=== PATIENT | male | born 1955 | race Caucasian/White ===

== ENCOUNTER 2024-01-02 03:31 | Inpatient (IN) | payer MEDICARE, OTHER, SELFPAY ==
[2024-01-02] VITALS (16 sets, daily range): BP systolic 89–186; BP diastolic 59–113; BMI 49.3; BMI 48.2; BMI 48.1
[2024-01-02] MEDS: LASIX 100 MG IV (01:13)
[2024-01-02] MEDS: ZOFRAN 4 MG IV (01:13)
[2024-01-02] MEDS: DECADRON 20 MG IV (01:13)
[2024-01-02] MEDS: DUONEB 3 ML INH (01:13)
[2024-01-02 01:16] LABS: % Basophils 0.3 % (0-2); % Eosinophils 1.2 % (0-6); % Immature Granulocytes 0.3 % (0-0.5); % Lymphocytes 34.5 % (20.5-51.1); % Monocytes 5.9 % (1.7-9.3); % Neutrophils 57.8 % (42.2-75.2); Absolute Eosinophils 0.1 10^3/uL (0-0.7); Absolute Lymphocytes 3.1 10^3/uL (1.2-3.4); Absolute Monocytes 0.5 10^3/uL (0.1-0.6); Absolute Neutrophils 5.1 10^3/uL (1.4-6.5); Hematocrit 51.4 % (39.0-52.0); Mean Corp Hgb Conc. 33.1 g/dL (33.0-37.0); Mean Corpuscular Hgb 30.2 pg (27.0-31.0); Mean Corpuscular Volume 91.5 fL (80.0-94.0); Mean Platelet Volume 11.1 fL (7.4-10.4); Nucleated Red Blood Cells % 0 % (-); Platelet Count 245 10^3/uL (130-400); Red Blood Cell Count 5.62 10^6/uL (4.70-6.10); Red Cell Dist. Width 14.9 % (11.5-14.5); White Blood Cell Count 8.9 10^3/uL (4.8-10.8)
--- NOTE | 2024-01-02 01:26 | ED.GENMED ---
History of Present Illness
General
Chief Complaint: Breathing Problem
Source: patient and records
Exam Limitations: clinical condition
Time Seen by Provider: 01/02/24 01:06
Nursing documentation reviewed up to this point in time: agreed with
Travel History
Have you had any contact with someone who has COVID-19?: No
Do you have any symptoms of coronavirus? Fever > 100 degrees, chills, cough, shortness of breath, sore throat, loss of taste or smell, muscle aches, or headache?: No
History of Present Illness
History of Present Illness:
Patient is a 68-year-old male who presents to the emergency department with acute onset of shortness of breath. Patient took Mounjaro for the first time tonight and approximately 20 minutes later began to feel short of breath and his lungs were
following up with fluid. Patient felt his throat swelling his eyes tearing and becoming nauseous. Patient denies chest pain. Patient denies abdominal pain vomiting or diarrhea. Patient denies history of atrial fibrillation. Patient has a
history of hypertension, hypercholesterolemia, diabetes as well as a TIA and had a PE. Patient has obstructive sleep apnea and is on CPAP. Patient also has history of factor V Leiden deficiency. Patient not taken the medication previously.
Past History
Past History
ED Past Medical History: CVA, HTN, Hypercholesterolemia, NIDDM and Other (Factor V Leiden deficiency, obstructive sleep apnea, PE)
ED Past Surgical History: Appendectomy
Social History
Tobacco: Former smoker
Alcohol: Occasional
Drug: None
Personal:
Living: alone
Employment: Disabled
Family History
Family History: Other (Diabetes, coronary disease, sister with a 'torn aorta'. Brother with diabetes)
Review of Systems
Review of Systems
All Other Systems: ROS reviewed and negative except as documented in HPI and ROS
Constitutional: Denies fever, fatigue or chills
EENT: Reports tearing, mouth swelling and runny nose
Respiratory: Reports trouble breathing; Denies cough
Cardiac: Reports no symptoms
ABD/GI: Reports nausea; Denies abdominal pain, vomiting, diarrhea or constipated
: Reports no symptoms
Musculoskeletal: Reports no symptoms
Skin: Reports no symptoms
Neurological: Reports no symptoms
Hematologic/Lymphatic: Reports no symptoms
Phy Exam
Physical Exam
Physical Exam:
Physical Exam
General: significant distress, alert and appropriate, morbidly obese, well hydrated
HENT: Normocephalic, supple with no lymphadenopathy, no thyromegaly
Eyes: Clear sclera, conjuctiva without injection
Heart: irregular rhythm and tachycardic rate. No S3, S4. No murmur. No NVD.
Lungs: significant respiratory distress, no stridor, lung sounds are diminished throughout with Rales and rhonchi but equal bilaterally
Abdomen: Soft, nontender, BS good
Neuro: Alert and oriented x 3, CN II - XII intact, no motor focality, no cerebellar dysfunction
Skin: no rash
Psychiatric: well kept. interactive and cooperative
Extremities: No tenderness. +1 pitting pretibial edema bilaterally.
Scores
Heart Failure Risk
Heart Failure Risk Score: Not Applicable
Course
Orders/Labs/Results
Orders:
Orders
01/02/24 01:07
ECG [Electrocardiogram (*1)] Urgent
Reason for Study: Shortness of Breath
01/02/24 01:08
EKG- Treatment ONCE
Dexamethasone Sod Phosphate [Decadron] 20 mg IV NOW STA
Furosemide [Lasix] 100 mg IV NOW STA
Ipratropium/Albuterol Sulfate [Duoneb] 3 ml .ROUTE .STK-MED ONE
Ipratropium/Albuterol Sulfate [Duoneb] 3 ml INH R NOW STA
Ondansetron Injectable [Zofran] 4 mg IV NOW STA
01/02/24 01:09
Complete Blood Count/With Diff Urgent
Comprehensive Metabolic Panel Urgent
Free T4 Urgent
NT-proBNP Urgent
TSH Reflex To Free T4 Urgent
Troponin I Urgent
01/02/24 01:25
CR Chest Portable - 1 View Urgent
Comment:
Reason For Exam: acute sob pulse ox 73%
Reason Study Needs to be Portable: Patient Unstable
01/02/24 01:31
Diphenhydramine [Benadryl] 25 mg IV NOW STA
Abnormal Lab Results
01/02/24
01:09
RDW 14.9 H %
(11.5-14.5)
MPV 11.1 H fL
(7.4-10.4)
Chloride 108 H mmol/L
(98-107)
Carbon Dioxide 19 L mmol/L
(22-30)
BUN 32 H mg/dl
(9-20)
Glucose 150 H mg/dl
(70-99)
TSH (Reflex) 5.37 H uIU/ml
(0.47-4.68)
01/02/24 01:09
01/02/24 01:09
Vital Signs
Initial and Last Documented VS:
Initial Vital Signs
Pulse Resp BP Pulse Ox
106 28 150/83 80
01/02/24 00:57 01/02/24 00:57 01/02/24 00:57 01/02/24 00:57
Last Documented Vital Signs
Pulse Resp BP Pulse Ox
98 23 89/60 95
01/02/24 02:00 01/02/24 02:00 01/02/24 02:00 01/02/24 02:10
*Radiology
Radiology exam reviewed: preliminary read by ED provider (mild congestion)
*Pulse Oximetry
Patient hypoxic: yes
Comment: initially 73%
*EKG
Interpreted by ED Provider?: Yes
EKG Intrepretation Date: 01/02/24
EKG Intrepretation Time: 01:41
Interpretation: abnormal
Comparison EKG: changes noted (Appears to be A-V dissociation but may be extreme first-degree heart block)
Heart Rate: 97
Rate: normal
Rhythm: sinus and PAC's
[place]: normal axis
Interval: normal QT interval and first degree heart block
QRS Pattern: right bundle branch block
Ischemia: non-specific ST changes
*Materials Scientist Interpretation
Rate: tachycardiac
Interpretation: abnormal
Heart Rate: 110
Rhythm: sinus and PAC's
*Critical Care Note
Total Time (30-74mins, 75-104mins- exclusive of procedures): 45 minutes
Update Note
Update Note:
Patient has improved. Review of the EKG shows either A-V dissociation or possibly a very prolonged first-degree heart block which is new. Patient's had first-degree heart block in the past but not to this extent. Patient has no history of atrial
fibrillation. The right bundle branch block is old. Chest x-ray shows just mild congestion. Believe the patient had an allergic reaction to the Mounjaro and was developing pulmonary edema. Patient does wear compression stockings and had his
BiPAP on at the time. Patient is resting more comfortably. Patient will be admitted.
ED Attending Note
-
Portions of this chart may have been created with voice recognition software.� Occasional wrong word or��sound alike� substitutions may have occurred due to the inherent limitations of voice recognition software.
Discharge Plan
Departure
Patient Disposition: Admit
Date of Disposition: 01/02/24
Time of Disposition: 01:57
Admit to: Telemetry
Admit to doctor: Hospitalist
Presentation/result/management discussed w/ accepting MD/DO: Hospitalist
Condition: Critical
Covid-19: Not Applicable
Discharge Problem:
Acute respiratory insufficiency, Allergic reaction, Hypoxia
Prescriptions:
No Action
furosemide 40 MG tablet
80 mg PO DAILY
atorvastatin 40 MG tablet
40 mg PO HS
aspirin 81 MG tablet,delayed release (DR/EC)
81 mg PO DAILY
labetalol 100 MG tablet
100 mg PO BID
polyethylene glycol 3350 17 GRAMS powder in packet
17 grams PO DAILY 0RF
zinc sulfate 220 MG capsule
220 mg PO DAILY 0RF
spironolactone 25 mg Tablet
25 mg PO DAILY
metformin 1,000 mg Tablet
1,000 mg PO BID
allopurinol 300 mg Tablet
300 mg PO DAILY
insulin aspart U-100 [Novolog FlexPen U-100 Insulin] 100 unit/mL (3 mL) Insulin Pen
SC TID
hydralazine-hydrochlorothiazid 25-25 mg Tablet
25 tab PO TID
omega 4-otg-ntp-fish oil [Fish Oil] 1,200 (144-216) mg Capsule
1,200 cap PO BID
Farxiga 5 mg Tablet
5 mg PO DAILY
Entresto
1 tab PO BID
Ozempic
DIRECTED
Patient Comments:
0.25 mg qweek for 4 weeks, the 0.50 mg qweek
insulin glargine [Lantus U-100 Insulin] 1,000 UNITS/10 ML solution
12 units SC DAILY
hydralazine 50 MG tablet
50 mg PO BID
Rx Instructions:
RESUME SLOWLY ONCE ORTHOSTASIS RESOLVED AND IF BP REMAINS HIGH
ascorbic acid (vitamin C) [Vitamin C] 500 MG tablet
1,000 mg PO DAILY
sennosides [senna] 1 TABLET tablet
1 tab PO PRN (Reason: constipation)
Interventions
Interventions:
*Risk Screen - Suicide Last Done: 01/02/24 00:57
*Neglect/Abuse Screening Last Done: 01/02/24 00:57
ED- Cardiac Assessment Last Done: 01/02/24 01:26
ED- Pulmonary Assessment Last Done: 01/02/24 02:10
Discharge Date and Time
Print Language: HUNGARIAN
[2024-01-02] MEDS: BENADRYL 25 MG IV (01:36)
[2024-01-02 01:37] LABS: ALT (SGPT) 24 U/L (0-50); AST (SGOT) 32 U/L (17-59); Albumin 4.6 g/dl (3.5-5.0); Alkaline Phosphatase 102 U/L (38-126); Blood Urea Nitrogen 32 mg/dl (9-20); Calcium 9.9 mg/dl (8.4-10.2); Carbon Dioxide 19 mmol/L (22-30); Chloride 108 mmol/L (98-107); Estimated Creatinine Clearance 111 ml/min; Glucose 150 mg/dl (70-99); Potassium 4.3 mmol/L (3.5-5.1); Sodium 141 mmol/L (135-145); Total Protein 7.5 g/dl (6.3-8.2); eGFR > 60.00
[2024-01-02 01:41] LABS: NT-proBNP 370 pg/ml; Troponin I < 0.012 ng/ml
[2024-01-02 02:01] LABS: TSH Reflex To Free T4 5.37 uIU/ml (0.47-4.68)
[2024-01-02] MEDS: ADRENALIN 0.299999999999999989 MG IM (02:21)
[2024-01-02] MEDS: PEPCID 20 MG IV ×2 (02:21→08:28)
--- NOTE | 2024-01-02 03:00 | HPS.HSE ---
Family Physician
-
Family Physician: RADHA Comer
Chief Complaint
-
SOB
History of Present Illness
Patient is a 68y M with PMH significant for morbid obesity and DM-II who presents to ED complaining of SOB, nausea and 'not feeling right'. Patient notes that he took his first dose of Mounjaro this evening around 11:45 PM. Only minutes later,
he began to feel sweaty, fatigued and mildly nauseated. He presented to the ED for further evaluation. He noted a raised, red area on the L anterior thigh at the site of the injection. In the ED, patient developed increasing SOB. He reported
swelling / fullness of the mouth and throat.
Patient denies any prior history of similar symptoms. No prior drug allergies.
Patient was treated in the ED with Lasix, Epinephrine, Pepcid with improvement in - but not resolution of - his symptoms.
Medical History
Past Medical History
Past Medical History: Reports Other
Additional Past Medical History:
Morbid Obesity
DM-II
Hypertension
Umbilical Hernia
History of DVT
Factor V Leiden
[place] on CPAP
Past Surgical History: Reports Other
Additional Past Surgical History:
T&A
Septoplasty
Appendectomy
Orchiectomy
Social History
Tobacco: Non-smoker
Alcohol: Occasional (Very rare.)
Family History
Family History: Not pertinent
Allergies / Home Medications
Allergies reflects when Allergies were last updated in [email or web address].
Home Medications with original date entered in [email or web address]
Allergy/Medication List:
Allergies
Allergy/AdvReac Type Severity Reaction Status Date / Time
tirzepatide [From Mounjaro] Allergy Severe Anaphylaxis Verified 01/02/24 02:14
Home Medications
aspirin 81 mg tablet,delayed release 81 mg PO DAILY Blood clot prevention/tx 04/07/18
atorvastatin 40 mg tablet 40 mg PO HS High cholesterol 04/07/18
furosemide 40 mg tablet 80 mg PO DAILY Fluid retention/Swelling 04/07/18
labetalol 100 mg tablet 100 mg PO BID Blood pressure 04/07/18
polyethylene glycol 3350 17 gram oral powder packet 17 grams PO DAILY 09/23/20
zinc sulfate 50 mg zinc (220 mg) capsule 220 mg (4.4 x 50 mg zinc (220 mg)) PO DAILY 09/23/20
Entresto 1 tab PO BID 08/09/23
Ozempic DIRECTED 08/09/23
allopurinol 300 mg tablet 300 mg PO DAILY 08/09/23
ascorbic acid (vitamin C) 500 mg tablet (Vitamin C) 1,000 mg PO DAILY 08/09/23
dapagliflozin propanediol 5 mg tablet (Farxiga) 5 mg PO DAILY 08/09/23
hydralazine 25 mg-hydrochlorothiazide 25 mg tablet 25 tab PO TID 08/09/23
hydralazine 50 mg tablet 50 mg PO BID 08/09/23
insulin aspart U-100 100 unit/mL (3 mL) subcutaneous pen (Novolog FlexPen U-100 Insulin aspart) unit SC TID 08/09/23
insulin glargine 100 unit/mL subcutaneous solution (Lantus U-100 Insulin) 12 units SC DAILY 08/09/23
metformin 1,000 mg tablet 1,000 mg PO BID 08/09/23
omega 6-[id number]-gkn-fish oil 1,200 mg (144 mg-216 mg) capsule (Fish Oil) 1,200 cap PO BID 08/09/23
sennosides 8.6 mg tablet (senna) 1 tab PO PRN constipation 08/09/23
spironolactone 25 mg tablet 25 mg PO DAILY 08/09/23
Review of Systems
-
History Source: Patient
A 12 point ROS was completed and negative except as noted: Yes
Constitutional: Reports Fatigue and Night Sweats; Denies Fever
EENT: Reports Other (Mouth / throat swelling); Denies Sore Throat
Respiratory: Reports Trouble Breathing
Cardiac: Denies Chest Pain
Abdomen/GI: Denies Abdominal Pain, Nausea, Vomiting or Diarrhea
Musculoskeletal: Denies Joint Pain or Edema
Neurological: Reports Dizzy and Headache
Psych: Denies Depression or Anxiety
Physical Exam
Vital Signs
Vital Signs
Pulse Resp BP Pulse Ox
94 14 112/63 95
01/02/24 02:30 01/02/24 02:30 01/02/24 02:30 01/02/24 02:30
Physical Exam
General: Other (Morbidly obese 68y M in mild respiratory distress at present.)
HEENT: Other (Thick neck. Evident oropharyngeal edema with thickness of tongue, fullness in the anterior neck / throat. No tenderness / fluctuance. Speaking, breathing without difficulty.)
Respiratory: Other (Diminished breath sounds throughout. Scattered expiratory wheezes.)
Cardiac: S1/S2 and Regular Rhythm; No Murmur
GI: Soft, Non Tender, Non Distended, Normal Bowel Sounds and Other (Obese. Large, non-tender umbilical hernia.)
Musculoskeletal: No Clubbing, No Cyanosis and Other (1+ pitting edema. Chronic venous stasis skin changes.)
Skin: Other (Maculopapular erythematous rashes b/l axillae with extension along flanks / abdomen.)
Neuro: AO x 3
Laboratory Results
-
01/02/24 01:09
01/02/24 01:09
Laboratory Results
Total Bilirubin 1.0 mg/dl (0.2-1.3) 01/02/24 01:09
AST 32 U/L (17-59) 01/02/24 01:09
ALT 24 U/L (0-50) 01/02/24 01:09
Alkaline Phosphatase 102 U/L (38-126) 01/02/24 01:09
Troponin I < 0.012 ng/ml 01/02/24 01:09
Impression/Plan
-
A/P: Patient is a 68y M with PMH significant for HTN, DM-II and obesity who presents to ED c/o nausea, diaphoresis and SOB.
Anaphylaxis
Acute Hypoxemic Respiratory Failure secondary to the above
- Admit for further evaluation and treatment.
- Symptoms seem clearly related to new administration of Mounjaro - now listed as allergy.
- Symptoms improving from initial arrival.
- Continue to monitor closely and monitor for worsening breathing, swallowing, etc.
- Continue steroids for now given ongoing wheezing and h/o post-COVID pulmonary compromise.
- Histamine blockers.
- Re-dose epinephrine if any recurrent / worsening symptoms.
- Follow for continued improvement / resolution of rash / etc.
DM-II
- Stable. Continue basal : bolus insulin.
- Hold metformin, Farxiga, etc.
- Follow glucose and cover with SSI as needed.
- Update A1C.
Benign Hypertension
- BP initially elevated but then decreased following Lasix administration in the ED.
- Now improving.
- Follow for changes in BP.
- Continue home meds, but with holding parameters to avoid hypotension.
Chronic HFpEF
- Patient with some evidence of pulmonary edema on admission - likely secondary to anaphylaxis.
- IV Lasix given in the ED.
- Continue usual PO dosing starting in AM.
- Follow I/Os, daily weights, etc.
History of DVT
Factor V Leiden
DVT Prophylaxis
- Remote history of DVT following prolonged hospitalization.
- Dx with Factor V Leiden. Was on OAC x 1 year and then discontinued.
- High-dose Lovenox for prophylaxis.
Umbilical Hernia
- Chronic / asymptomatic. No new changes.
Morbid Obesity due to excess calories
- Affects all aspects of care.
- Previously on Ozempic but changed to Mounjaro due to cost.
- Encourage healthy diet and increased activity with goal of weight loss.
Code Status: Full
[2024-01-02 04:15] LABS: Hematocrit 49.5 % (39.0-52.0); Hemoglobin 16.5 g/dL (13.0-18.0); Mean Corp Hgb Conc. 33.3 g/dL (33.0-37.0); Mean Corpuscular Hgb 30.3 pg (27.0-31.0); Mean Corpuscular Volume 90.8 fL (80.0-94.0); Platelet Count 208 10^3/uL (130-400); Red Blood Cell Count 5.45 10^6/uL (4.70-6.10); White Blood Cell Count 23.3 10^3/uL (4.8-10.8)
[2024-01-02 04:42] LABS: Blood Urea Nitrogen 38 mg/dl (9-20); Calcium 9.9 mg/dl (8.4-10.2); Carbon Dioxide 20 mmol/L (22-30); Chloride 105 mmol/L (98-107); Estimated Creatinine Clearance 101 ml/min; Glucose 200 mg/dl (70-99); Potassium 4.7 mmol/L (3.5-5.1); Sodium 141 mmol/L (135-145); eGFR > 60.00
[2024-01-02 07:03] LABS: Glucose - Point of Care 257 mg/dl (70-99)
--- NOTE | 2024-01-02 07:34 | PTCARENOTE ---
Rec'd pt as new admit from ED [facility] Hirsch. Pt AAOx3. EKG shows afib with RVR. HR 80s. Cardiac rhythm appears regular on monitor at times, but with non-discernable p-waves. Pt 94-96% on CPAP. Pt denies complaints of SOB, pain, dyspnea at this time. Able
to stand/pivot from stretcher into bed with assistx1. Call gleason placed within reach. Pt instructed to notify staff with any questions/concerns
[2024-01-02 08:12] LABS: Glucose - Point of Care 240 mg/dl (70-99)
[2024-01-02] MEDS: DECADRON 4 MG IV ×3 (08:25→23:39)
[2024-01-02] MEDS: TRANDATE 100 MG PO ×2 (08:27→21:06)
[2024-01-02] MEDS: ASPIR LOW (ENTERIC COATED) 81 MG PO (08:27)
[2024-01-02] MEDS: BENADRYL 25 MG PO ×3 (08:27→21:06)
[2024-01-02] MEDS: ZYRTEC 10 MG PO (08:27)
[2024-01-02] MEDS: NSS (PRESERVATIVE FREE) 8 ML IV (08:28)
[2024-01-02] MEDS: LOVENOX 40 MG SC ×2 (08:29→21:07)
[2024-01-02] MEDS: LASIX 80 MG PO (08:29)
[2024-01-02 08:44] LABS: Glycohemoglobin (HgbA1c) 7.6 % (4.0-5.6)
--- NOTE | 2024-01-02 08:44 | W.PN.HOSP.TC ---
Today's Communication/Plan
-
see bold
Assessment / Plan
Assessment / Plan
Patient is a 68y M with PMH significant for HTN, DM-II and obesity who presents to ED c/o nausea, diaphoresis and SOB.
Anaphylaxis
Acute Hypoxemic Respiratory Failure secondary to the above
- Symptoms seem clearly related to new administration of Mounjaro - now listed as allergy.
- Current requiring 5 L of oxygen, wean as tolerated
- Status post epinephrine, continue IV steroids, Benadryl, Pepcid continue to monitor closely
- Continue soft, small bite diet
DM-II
- Stable. Continue basal : bolus insulin.
- Hold metformin, Farxiga, SSI
Benign Hypertension
- BP initially elevated but then decreased following Lasix administration in the ED.
- Now improving. Continue home meds, but with holding parameters to avoid hypotension.
Chronic HFpEF
- Patient with some evidence of pulmonary edema on admission - likely secondary to anaphylaxis.
- IV Lasix given in the ED. Repeat chest x-ray today
History of DVT
Factor V Leiden
DVT Prophylaxis
- Remote history of DVT following prolonged hospitalization.
- Dx with Factor V Leiden. Was on OAC x 1 year and then discontinued.
- High-dose Lovenox for prophylaxis.
Umbilical Hernia
- Chronic / asymptomatic. No new changes.
Morbid Obesity due to excess calories
- Affects all aspects of care.
- Previously on Ozempic but changed to Mounjaro due to cost.
- Encourage healthy diet and increased activity with goal of weight loss.
DVT prophylaxis�subcu Lovenox
Full code
Physical Exam
General: Morbidly obese, no acute distress
HEENT: Normocephalic, Atraumatic, EOMI, MMM
Respiratory: Clear to Auscultation bilaterally
Cardiac: Normal S1/S2, Regular Rate and Rhythm
GI: Soft, Nontender, Nondistended, Normal Bowel Sounds
Protuberant belly, with large umbilical hernia
Extremities: No Clubbing, Cyanosis, or Edema
Neuro: Nonfocal/Grossly Intact
Psych: Calm, Cooperative
Anticipated Discharge: 24 - 48 hours
Subjective/Interval History
-
Date of Service: January 02, 2024
Patient tolerated his pills. He tolerated his breakfast, only with small amount of food once going into the wrong pipe. He reports the swelling of his lips has vastly improved, and is almost resolved. No fever, no vomiting.
Objective Data
-
Labs:
Laboratory Results
01/02/24 01/02/24
01:09 04:06
WBC 8.9 23.3 H
Hgb 17.0 16.5
Hct 51.4 49.5
Plt Count 245 208
Sodium 141 141
Potassium 4.3 4.7
Chloride 108 H 105
Carbon Dioxide 19 L 20 L
BUN 32 H 38 H
Creatinine 1.1 1.2
Glucose 150 H 200 H
Calcium 9.9 9.9
Total Bilirubin 1.0
AST 32
ALT 24
Alkaline Phosphatase 102
Vital Signs:
Vital Signs
Temp Pulse Resp BP Pulse Ox
97.8 F 95 18 186/113 94
01/02/24 07:39 01/02/24 06:00 01/02/24 06:00 01/02/24 08:29 01/02/24 06:00
I&O
01/01/24 01/02/24 01/03/24
06:59 06:59 06:59
Output Total 1250 / 1250
Balance -1250 / -1250
[2024-01-02] MEDS: ALDACTONE 25 MG PO (08:48)
[2024-01-02] MEDS: NOVOLOG FLEXPEN-MODERATE RESISTANCE 3 UNITS SC (08:48)
[2024-01-02] MEDS: NOVOLOG FLEXPEN 5 UNITS SC ×3 (08:50→17:41)
[2024-01-02 11:58] LABS: Glucose - Point of Care 270 mg/dl (70-99)
[2024-01-02] MEDS: NOVOLOG FLEXPEN-MODERATE RESISTANCE 5 UNITS SC ×2 (13:06→17:42)
[2024-01-02 16:09] LABS: Glucose - Point of Care 253 mg/dl (70-99)
--- NOTE | 2024-01-02 16:57 | CM ---
Patient with Hx obesity with Dx Anaphylaxis. O2 5L. CPAP. Receiving IV Decadron.
Met with patient who resides with his brother in a mobile home with ramp at entrance.
The patient has been independent in ADLs and ambulation.
His brother assists him as needed.
DME - [facility], [facility]
Prior [facility]
Prior [facility]
PCP - Aga White
Pharmacy - [facility], [place]
Offered VN and patient declined.
The patient drove himself to the hospital and will drive himself home.
No CM d/c needs identified.
Plan home.
--- NOTE | 2024-01-02 17:15 | PTCARENOTE ---
Rec'd pt this AM. vital signs stable. OOB with 1 assist to stretcher for transfer to X ray. Encouraged coughing, deep breathing and IS use. Reports improvement with allergy symptoms but remains [place] and sometimes at rest.
[2024-01-02] MEDS: PEPCID 20 MG PO (21:07)
[2024-01-02] MEDS: LIPITOR 40 MG PO (21:07)
[2024-01-02] MEDS: LANTUS 0.25 UNITS SC (21:10)
[2024-01-02 21:22] LABS: Glucose - Point of Care 221 mg/dl (70-99)
[2024-01-03] VITALS (16 sets, daily range): BP systolic 110–179; BP diastolic 48–137; PULSE 63–84; BMI 46.9
[2024-01-03 05:18] LABS: Hematocrit 45.6 % (39.0-52.0); Hemoglobin 15.2 g/dL (13.0-18.0); Mean Corp Hgb Conc. 33.3 g/dL (33.0-37.0); Mean Corpuscular Hgb 30.4 pg (27.0-31.0); Mean Corpuscular Volume 91.2 fL (80.0-94.0); Mean Platelet Volume 11.4 fL (7.4-10.4); Platelet Count 186 10^3/uL (130-400); Red Cell Dist. Width 14.7 % (11.5-14.5); White Blood Cell Count 12.7 10^3/uL (4.8-10.8)
[2024-01-03 05:33] LABS: Blood Urea Nitrogen 52 mg/dl (9-20); Calcium 9.8 mg/dl (8.4-10.2); Carbon Dioxide 21 mmol/L (22-30); Chloride 104 mmol/L (98-107); Estimated Creatinine Clearance 99 ml/min; Glucose 280 mg/dl (70-99); Magnesium 1.9 mg/dl (1.6-2.3); Potassium 4.4 mmol/L (3.5-5.1); Sodium 139 mmol/L (135-145); eGFR > 60.00
[2024-01-03 05:43] LABS: NT-proBNP 709 pg/ml
--- NOTE | 2024-01-03 05:51 | PTCARENOTE ---
Pt on CPAP while sleeping. 4L NC while awake. Denies any pain. No gi/gu complaints. Able to turn self while in bed. Rash has resolved. Pt offers no complaints. Tolerating IV Decadron. Tele showing Afib w/ BBB. Call gleason within reach. Pt calls
appropriately.
[2024-01-03 08:25] LABS: Glucose - Point of Care 268 mg/dl (70-99)
[2024-01-03] MEDS: NOVOLOG FLEXPEN 5 UNITS SC ×2 (08:48→14:00)
[2024-01-03] MEDS: NOVOLOG FLEXPEN-MODERATE RESISTANCE 5 UNITS SC ×2 (08:48→18:21)
[2024-01-03] MEDS: DECADRON 4 MG IV ×2 (08:49→20:17)
[2024-01-03] MEDS: PEPCID 20 MG PO ×2 (08:50→20:12)
[2024-01-03] MEDS: LOVENOX 40 MG SC ×2 (08:50→20:13)
[2024-01-03] MEDS: LASIX 80 MG PO (08:50)
[2024-01-03] MEDS: TRANDATE 100 MG PO ×2 (08:50→20:12)
[2024-01-03] MEDS: ALDACTONE 25 MG PO (08:50)
[2024-01-03] MEDS: ZYRTEC 10 MG PO (08:50)
[2024-01-03] MEDS: BENADRYL 25 MG PO ×3 (08:50→21:58)
[2024-01-03] MEDS: ASPIR LOW (ENTERIC COATED) 81 MG PO (08:50)
--- NOTE | 2024-01-03 09:11 | W.PN.HOSP.TC ---
Addendum entered and electronically signed by Alejandro Swanson MD 01/03/24 14:44:
Patient's med rec has been updated. He is currently on Entresto twice a day at home.
Will resume home Entresto instead of starting lisinopril.
Original Note:
Today's Communication/Plan
-
Stable for telemetry
Assessment / Plan
Assessment / Plan
Patient is a 68y M with PMH significant for HTN, DM-II and obesity who presents to ED c/o nausea, diaphoresis and SOB.
Anaphylaxis
Acute Hypoxemic Respiratory Failure secondary to the above
- Symptoms seem clearly related to new administration of Mounjaro - now listed as allergy.
- Current requiring 2 L of oxygen, down from 5 L of oxygen, wean as tolerated. He does not wear oxygen at home
- Status post epinephrine, wean IV steroids, Benadryl, Pepcid continue to monitor closely
- Continue soft, small bite diet, c/s PT/OT
DM-II
- Stable. Continue basal : bolus insulin.
- Hold metformin, Farxiga, SSI
Benign Hypertension
- BP elevated due to steroid use
- Continue labetalol 100 mg twice a day, add lisinopril 20 mg daily, hydralazine 75 mg p.o. 3 times daily with hold parameters
Chronic HFpEF
- Patient with some evidence of pulmonary edema on admission - likely secondary to anaphylaxis.
- IV Lasix given in the ED. Repeat chest x-ray today
History of DVT
Factor V Leiden
DVT Prophylaxis
- Remote history of DVT following prolonged hospitalization.
- Dx with Factor V Leiden. Was on OAC x 1 year and then discontinued.
- High-dose Lovenox for prophylaxis.
Umbilical Hernia
- Chronic / asymptomatic. No new changes.
Morbid Obesity due to excess calories
- Affects all aspects of care.
- Previously on Ozempic but changed to Mounjaro due to cost.
- Encourage healthy diet and increased activity with goal of weight loss.
DVT prophylaxis�subcu Lovenox
Full code
Total time spent to see the patient on the floor, examine the patient, review data and lab results, discuss treatment plan with patient, nursing staff around 51 minutes.
Physical Exam
General: Morbidly obese, no acute distress
HEENT: Normocephalic, Atraumatic, EOMI, MMM
Respiratory: Clear to Auscultation bilaterally
Cardiac: Normal S1/S2, Regular Rate and Rhythm
GI: Soft, Nontender, Nondistended, Normal Bowel Sounds
Protuberant belly, with large umbilical hernia
Extremities: No Clubbing, Cyanosis, or Edema
Neuro: Nonfocal/Grossly Intact
Psych: Calm, Cooperative
Anticipated Discharge: Within 24 hours
Subjective/Interval History
-
Date of Service: January 03, 2024
Breathing continues to improve. He is tolerating his diet. No shortness of breath, no chest pain. No fever, no vomiting.
Objective Data
-
Labs:
Laboratory Results
01/03/24
05:05
WBC 12.7 H
Hgb 15.2
Hct 45.6
Plt Count 186
Sodium 139
Potassium 4.4
Chloride 104
Carbon Dioxide 21 L
BUN 52 H
Creatinine 1.2
Glucose 280 H
Calcium 9.8
Vital Signs:
Vital Signs
Temp Pulse Resp BP Pulse Ox
97.7 F 78 16 158/64 95
01/03/24 03:32 01/03/24 06:02 01/03/24 06:02 01/03/24 06:02 01/03/24 06:02
I&O
01/02/24 01/03/24 01/04/24
06:59 06:59 06:59
Intake Total 480 / 480
Output Total 1250 / 1250 3575 / 3575 700 / 700
Balance -1250 / -1250 -3095 / -3095 -700 / -700
--- NOTE | 2024-01-03 12:27 | CM ---
CM following re: discharge planning.
Reviewed pt's chart, met with pt and pt's brother at bedside.
Pt on CPAP while sleeping. 4L NC while awake. Pt has no home Oxygen.
Pt reports he has a walker and a cane at home, does not use them, has C-pap machine and uses it at night. Pt expressed his hope that he will not need home oxygen. Pt reports he is known to [facility] and pt requested [facility] upon the discharge.
A referral to [facility] made.
IMM reviewed, placed in chart, pt has a copy.
D/C plan: home with [facility] and brother support. Pt reports his car is parked on the parking lot and he will drive home at discharge. Monitoring O2 requirement.
CM will follow with discharge plan updates as hospitalization progresses
[2024-01-03] MEDS: MYCOSTATIN ORAL SUSPENSION 5 ML PO ×3 (12:35→21:59)
[2024-01-03] MEDS: APRESOLINE 75 MG PO ×3 (12:36→17:10)
[2024-01-03 13:08] LABS: Glucose - Point of Care 317 mg/dl (70-99)
[2024-01-03] MEDS: NOVOLOG FLEXPEN-MODERATE RESISTANCE 7 UNITS SC (14:00)
--- NOTE | 2024-01-03 14:44 | W.PN.HOSP.TC ---
Today's Communication/Plan
-
Stable for discharge today
Assessment / Plan
Assessment / Plan
Patient is a 68y M with PMH significant for HTN, DM-II and obesity who presents to ED c/o nausea, diaphoresis and SOB.
Anaphylaxis
Acute Hypoxemic Respiratory Failure secondary to the above
- Symptoms seem clearly related to new administration of Mounjaro - now listed as allergy.
- Currently on RA, down from 5 L of oxygen, wean as tolerated. He does not wear oxygen at home
- Status post epinephrine, s/p IV steroids
- Now on oral prednisone, continue Benadryl, Pepcid
- Home oxygen evaluation performed, he does not need oxygen upon discharge
- Continue soft, small bite diet, PT/OT
- Medically stable for discharge today -patient counseled to avoid Mounjaro for now, he reports understanding
DM-II
- Stable. Continue basal : bolus insulin.
- Hold metformin, Farxiga, SSI
Benign Hypertension
- BP elevated due to steroid use
- Continue labetalol 100 mg twice a day, spironolactone 25 mg daily, resumed hydralazine 75 mg p.o. 3 times daily, resumed Entresto twice a day
Chronic HFpEF
- Patient with some evidence of pulmonary edema on admission - likely secondary to anaphylaxis.
- Continue home Lasix 80 mg p.o. daily, spironolactone 25 mg daily, low-sodium diet, trend daily weights
Thrush
- Continue nystatin day 3 out of 14
History of DVT
Factor V Leiden
DVT Prophylaxis
- Remote history of DVT following prolonged hospitalization.
- Dx with Factor V Leiden. Was on OAC x 1 year and then discontinued.
- High-dose Lovenox for prophylaxis.
Umbilical Hernia
- Chronic / asymptomatic. No new changes.
Morbid Obesity due to excess calories
- Affects all aspects of care.
- Previously on Ozempic but changed to Mounjaro due to cost.
- Encourage healthy diet and increased activity with goal of weight loss.
DVT prophylaxis�subcu Lovenox
Full code
Physical Exam
General: Morbidly obese, no acute distress
HEENT: Normocephalic, Atraumatic, EOMI, MMM
Respiratory: Clear to Auscultation bilaterally
Cardiac: Normal S1/S2, Regular Rate and Rhythm
GI: Soft, Nontender, Nondistended, Normal Bowel Sounds
Protuberant belly, with large umbilical hernia
Extremities: No Clubbing, Cyanosis, or Edema
Neuro: Nonfocal/Grossly Intact
Psych: Calm, Cooperative
Anticipated Discharge: Today
Subjective/Interval History
-
Date of Service: January 03, 2024
Patient denies shortness of breath. He is tolerating his meals well. No fever, no vomiting.
Objective Data
-
Labs:
Laboratory Results
01/03/24
05:05
WBC 12.7 H
Hgb 15.2
Hct 45.6
Plt Count 186
Sodium 139
Potassium 4.4
Chloride 104
Carbon Dioxide 21 L
BUN 52 H
Creatinine 1.2
Glucose 280 H
Calcium 9.8
Vital Signs:
Vital Signs
Temp Pulse Resp BP Pulse Ox
97.7 F 68 17 159/108 96
01/03/24 10:52 01/03/24 12:26 01/03/24 12:26 01/03/24 12:36 01/03/24 12:45
I&O
01/02/24 01/03/24 01/04/24
06:59 06:59 06:59
Intake Total 480 / 480
Output Total 1250 / 1250 3575 / 3575 1800 / 1800
Balance -1250 / -1250 -3095 / -3095 -1800 / -1800
--- NOTE | 2024-01-03 16:00 | VNURNOTE ---
Home Health Liaison met with patient at 1500 to discuss [facility] nurse/therapy, visits, schedule and homebound status. Patient is agreeable and understands that visits at home will be 2-3 x per week to assess and teach medical management. Patient has a
scale and is able to log a daily weight.
[facility] brochure provided with contact information. Patient is aware that [facility] will contact them for start of care in 1-2 days after discharge from .
[facility] referral completed in [facility].
Patient has not had home O2 assessment to determine need.
[2024-01-03] MEDS: ENTRESTO 24 MG/26 MG 0.5 TAB PO ×2 (17:06→20:11)
[2024-01-03] MEDS: NOVOLOG FLEXPEN 8 UNITS SC (18:22)
[2024-01-03 18:31] LABS: Glucose - Point of Care 281 mg/dl (70-99)
--- NOTE | 2024-01-03 20:00 | PTCARENOTE ---
Pt received resting comfortably in bed. AAOx3. SR w/ BBB on the monitor. + 1 B/L LE edema. Lungs decreased - clear 97% on 2L. [place]. Visible abd hernia. + pulses. B/L Brown PVD legs. Pt reports complete resolution of symptoms.
--- NOTE | 2024-01-03 21:05 | PTCARENOTE ---
Pt transferring to Room 2134. Report given to Danny. Belongings sent with patient.
[2024-01-03 21:54] LABS: Glucose - Point of Care 208 mg/dl (70-99)
[2024-01-03] MEDS: LANTUS 0.280000000000000027 UNITS SC (21:58)
[2024-01-03] MEDS: FARXIGA 10 MG PO (21:58)
[2024-01-03] MEDS: LIPITOR 40 MG PO (21:59)
[2024-01-04 03:28] VITALS: BP 154/83
[2024-01-04 05:55] VITALS: BMI 46.8
[2024-01-04 07:37] LABS: Glucose - Point of Care 220 mg/dl (70-99)
[2024-01-04] MEDS: ENTRESTO 24 MG/26 MG 0.5 TAB PO (07:57)
[2024-01-04 07:58] VITALS: BP 156/86
[2024-01-04] MEDS: APRESOLINE 75 MG PO (07:58)
[2024-01-04] MEDS: BENADRYL 25 MG PO (07:58)
[2024-01-04] MEDS: ASPIR LOW (ENTERIC COATED) 81 MG PO (07:58)
[2024-01-04] MEDS: ALDACTONE 25 MG PO (07:59)
[2024-01-04] MEDS: ZYRTEC 10 MG PO (07:59)
[2024-01-04] MEDS: TRANDATE 100 MG PO (08:00)
[2024-01-04] MEDS: DELTASONE 40 MG PO (08:00)
[2024-01-04] MEDS: PEPCID 20 MG PO (08:01)
[2024-01-04] MEDS: LASIX 80 MG PO (08:01)
[2024-01-04] MEDS: MYCOSTATIN ORAL SUSPENSION 5 ML PO ×2 (08:01→13:13)
[2024-01-04] MEDS: LOVENOX 40 MG SC (08:02)
[2024-01-04] MEDS: NOVOLOG FLEXPEN-MODERATE RESISTANCE 3 UNITS SC (08:36)
[2024-01-04] MEDS: NOVOLOG FLEXPEN 8 UNITS SC ×2 (08:36→13:11)
[2024-01-04 09:07] LABS: Hematocrit 45.8 % (39.0-52.0); Mean Corp Hgb Conc. 32.8 g/dL (33.0-37.0); Mean Corpuscular Hgb 29.9 pg (27.0-31.0); Mean Corpuscular Volume 91.2 fL (80.0-94.0); Mean Platelet Volume 11.5 fL (7.4-10.4); Platelet Count 181 10^3/uL (130-400); Red Blood Cell Count 5.02 10^6/uL (4.70-6.10); Red Cell Dist. Width 14.9 % (11.5-14.5); White Blood Cell Count 12.2 10^3/uL (4.8-10.8)
[2024-01-04 09:28] LABS: Blood Urea Nitrogen 49 mg/dl (9-20); Calcium 9.6 mg/dl (8.4-10.2); Carbon Dioxide 23 mmol/L (22-30); Chloride 103 mmol/L (98-107); Estimated Creatinine Clearance 119 ml/min; Glucose 205 mg/dl (70-99); Potassium 4.1 mmol/L (3.5-5.1); Sodium 140 mmol/L (135-145); eGFR > 60.00
[2024-01-04 10:00] VITALS: BP 148/76; PULSE 72; O2SAT 95
--- NOTE | 2024-01-04 10:48 | W.PN.HOSP.TC ---
Today's Communication/Plan
-
discharge today
Assessment / Plan
Assessment / Plan
Patient is a 68y M with PMH significant for HTN, DM-II and obesity who presents to ED c/o nausea, diaphoresis and SOB.
Anaphylaxis
Acute Hypoxemic Respiratory Failure secondary to the above
- Symptoms seem clearly related to new administration of Mounjaro - now listed as allergy.
- Currently on RA, down from 5 L of oxygen, wean as tolerated. He does not wear oxygen at home
- Status post epinephrine, s/p IV steroids
- Now on oral prednisone, continue Benadryl, Pepcid
- Home oxygen evaluation performed, he does not need oxygen upon discharge
- Continue soft, small bite diet, PT/OT
- Medically stable for discharge today -patient counseled to avoid Mounjaro for now, he reports understanding
DM-II
- Stable. Continue basal : bolus insulin.
- Hold metformin, Farxiga, SSI
Benign Hypertension
- BP elevated due to steroid use
- Continue labetalol 100 mg twice a day, spironolactone 25 mg daily, resumed hydralazine 75 mg p.o. 3 times daily, resumed Entresto twice a day
Chronic HFpEF
- Patient with some evidence of pulmonary edema on admission - likely secondary to anaphylaxis.
- Continue home Lasix 80 mg p.o. daily, spironolactone 25 mg daily, low-sodium diet, trend daily weights
Thrush
- Continue nystatin day 3 out of 14
History of DVT
Factor V Leiden
DVT Prophylaxis
- Remote history of DVT following prolonged hospitalization.
- Dx with Factor V Leiden. Was on OAC x 1 year and then discontinued.
- High-dose Lovenox for prophylaxis.
Umbilical Hernia
- Chronic / asymptomatic. No new changes.
Morbid Obesity due to excess calories
- Affects all aspects of care.
- Previously on Ozempic but changed to Mounjaro due to cost.
- Encourage healthy diet and increased activity with goal of weight loss.
DVT prophylaxis�subcu Lovenox
Full code
Physical Exam
General: Morbidly obese, no acute distress
HEENT: Normocephalic, Atraumatic, EOMI, MMM
Respiratory: Clear to Auscultation bilaterally
Cardiac: Normal S1/S2, Regular Rate and Rhythm
GI: Soft, Nontender, Nondistended, Normal Bowel Sounds
Protuberant belly, with large umbilical hernia
Extremities: No Clubbing, Cyanosis, or Edema
Neuro: Nonfocal/Grossly Intact
Psych: Calm, Cooperative
Anticipated Discharge: Today
Subjective/Interval History
-
Date of Service: January 04, 2024
Patient denies shortness of breath. He is tolerating his meals well. No fever, no vomiting.
Objective Data
-
Labs:
Laboratory Results
01/04/24
07:48
WBC 12.2 H
Hgb 15.0
Hct 45.8
Plt Count 181
Sodium 140
Potassium 4.1
Chloride 103
Carbon Dioxide 23
BUN 49 H
Creatinine 1.0
Glucose 205 H
Calcium 9.6
Vital Signs:
Vital Signs
Temp Pulse Resp BP Pulse Ox
98.0 F 72 20 156/86 91
01/04/24 07:58 01/04/24 07:58 01/04/24 03:28 01/04/24 07:58 01/04/24 07:58
I&O
01/03/24 01/04/24 01/05/24
06:59 06:59 06:59
Intake Total 480 / 480 800 / 800
Output Total 3575 / 3575 4450 / 4450
Balance -3095 / -3095 -3650 / -3650
--- NOTE | 2024-01-04 10:59 | W.DCSUMMARY ---
Discharge Summary
Discharge Data
Date of Admission: 01/02/24
Date of Discharge: 01/04/24
-
Pending Results: No
Hospital Course
Discharge diagnosis:
Acute anaphylaxis/angioedema
Acute hypoxic respiratory failure
Atelectasis
Thrush
Uncontrolled type 2 diabetes with hyperglycemia
Benign essential hypertension
Chronic heart failure with a preserved ejection fraction
Umbilical hernia
History of deep vein thrombosis
Factor V [place]
Morbid obesity due to excess calories
CXR: Low lung volumes.
No suspected acute cardiopulmonary process. Except for some minimal left basilar discoid atelectasis.
Hospital course:
68-year-old male with a past medical history of type 2 diabetes, morbid obesity, CHF, factor V [place], and hypertension presents with nausea, diaphoresis, shortness of breath after giving himself Mounjaro injection. Patient was found to have
angioedema and anaphylaxis from the Mounjaro. He was treated with racemic epinephrine in the ER. He was then continued on IV steroids, Pepcid, Benadryl. Patient required as much as 5 L of oxygen.
Patient was started on a soft bite-size diet. He tolerated his medications and his diet. Repeat chest x-ray shows atelectasis. He was encouraged to use incentive spirometer.
Patient was noted to be hyperglycemic. This is due to his diabetes and the steroid use. His home Lantus was increased from 25 units at bedtime to 28 units at bedtime. He was started on Premeal insulin, and will be discharged on aspart 8 units AC
3 times daily. He is continued on his Farxiga. His hemoglobin A1c was 7.6.
Patient's blood pressure was elevated in the hospital. He was continued on his home spironolactone 25 mg daily, and labetalol 50 mg twice a day. His Entresto and hydralazine were resumed. His blood pressure improved.
After several days, he was able to be weaned to room air. Home oxygen evaluation was performed, he does not need any oxygen upon discharge.
Patient was also found to have thrush. He was started on nystatin swish and swallow 4 times daily. He will be discharged on this to continue 14-day course.
Patient is medically stable for discharge. He has been counseled to permanently abstain from any more Mounjaro use. He needs to follow-up with his primary care doctor in 1 week, as well as his usual statistician mathematical in 2-3 weeks.
Disposition: Home with home care
Discharge planning: Required 41 minutes
Discharge Plan
-
Patient Disposition: Home with Home Care
Discharge Diagnosis/Procedures: Acute hypoxic respiratory sufficiency, anaphylaxis/angioedema 210, uncontrolled type 2 diabetes with hyperglycemia, thrush, morbid obesity, hypertension, chronic congestive heart failure
Condition: Fair
Diet: Diabetic, Carb Controlled
Activity: As tolerated
Driving Restrictions: As prior to admission
Activity Restrictions/Additional Instructions:
Never take Mounjaro ever again.
Please follow-up with your usual statistician mathematical, as well as her primary care doctor in 1 week.
Referrals:
Aga White CRNP [Family Provider] - in one week
Prescriptions:
New
insulin aspart U-100 100 unit/mL (3 mL) Insulin Pen
8 unit SC AC Qty: 15 0RF
prednisone 10 mg Tablet
See Rx Instructions .ROUTE .COMPLEX Qty: 30 0RF
Rx Instructions:
Take By Mouth:
40 mg daily x3 days, 30 mg daily x3 days,
20 mg daily x3 days, 10 mg daily x3 days.
nystatin 100,000 unit/mL Suspension
5 ml PO QID 12 Days Qty: 240 0RF
Continued
furosemide 40 MG tablet
80 mg PO DAILY
atorvastatin 40 MG tablet
40 mg PO HS
aspirin 81 MG tablet,delayed release (DR/EC)
81 mg PO DAILY
spironolactone 25 mg Tablet
25 mg PO DAILY@1600
metformin 1,000 mg Tablet
1,000 mg PO BID
allopurinol 300 mg Tablet
300 mg PO DAILY
omega 0-rbp-oec-fish oil [Fish Oil] 1,200 (144-216) mg Capsule
1,200 cap PO BID
hydralazine 50 MG tablet
50 mg PO BID@1600,2200
Rx Instructions:
01/03/2024, take with 25 mg for a total of 75 mg.
ascorbic acid (vitamin C) [Vitamin C] 500 MG tablet
500 mg PO DAILY
acetaminophen 325 mg Tablet
1,300 mg PO DAILYPRN PRN (Reason: mild pain)
hydralazine 25 mg Tablet
25 mg PO TID@0800,1600,2200
labetalol 100 mg Tablet
50 mg PO BID
Tylenol PM Extra Strength 25-500 mg Tablet
4 tab PO HS PRN (Reason: sleep)
insulin aspart U-100 [Novolog FlexPen U-100 Insulin] 100 unit/mL (3 mL) Insulin Pen
0 sliding scale dose SC DIRECTED
Rx Instructions:
01/03/2024, if BS<80 = 0 units; 80-99 = 10 units; 100-149 = 15 units; 150 - 199 = 17 units; 200 - 249 = 19 units; 250 - 299 = 21 units; 300 - 349 = 23 units; 350 - 399 = 25 units; 400+ = 27 units and call MD.
cholecalciferol (vitamin D3) 25 mcg (1,000 unit) Tablet
25 mcg PO BID
Artificial Tears (PF) 0.1-0.3 % Dropperette
2 drp BOTH EYES DAILYPRN PRN (Reason: allergies)
dapagliflozin propanediol [Farxiga] 10 mg Tablet
10 mg PO HS
Entresto 24-26 mg Tablet
0.5 tab PO BID
Changed
sennosides [senna] 8.6 mg Tablet
17.2 mg PO DAILY Qty: 60 0RF
insulin glargine [Lantus Solostar U-100 Insulin] 100 unit/mL (3 mL) Insulin Pen
28 unit SC HS Qty: 15 0RF
Discontinued
Ozempic 0.25 mg or 0.5 mg (2 mg/3 mL) Pen Injector
0.5 mg SC WE@1800
Discharge Orders:
Discharge Patient (As Directed); Ordered 01/04/24
Ordered By: Alejandro Swanson
Discharge Date and Time
Print Language: PALAUAN
--- NOTE | 2024-01-04 11:55 | CM ---
CM met with pt bedside
Discharge order noted
Pt does not qualify for home O2
Plan remains for home with [facility]N order on chart
Update to [facility] via [facility]
Discharge Disposition- home with [facility]- plans to drive self home
[2024-01-04 13:12] LABS: Glucose - Point of Care 292 mg/dl (70-99)
[2024-01-04] MEDS: NOVOLOG FLEXPEN-MODERATE RESISTANCE 5 UNITS SC (13:12)
== END 2024-01-04 15:17 | disposition home health service (06) | DRG 915 ==
LOC: 2 NORTH 03:31
PROVIDERS: ADMITTING PHYSICIAN Hospitalist; ATTENDING PHYSICIAN Family Medicine; EMERGENCY PHYSICIAN Emergency Medicine; FAMILY PHYSICIAN Nurse Practitioner Family
DX: T88.6XXA Anaphylactic reaction due to adverse effect of correct drug or medicament properly administered, initial encounter (principal); J96.01 Acute respiratory failure with hypoxia; I50.32 Chronic diastolic (congestive) heart failure; D68.51 Activated protein C resistance; Z68.42 Body mass index [BMI] 45.0-49.9, adult; I11.0 Hypertensive heart disease with heart failure; E66.01 Morbid (severe) obesity due to excess calories; T38.3X5A Adverse effect of insulin and oral hypoglycemic [antidiabetic] drugs, initial encounter; E11.65 Type 2 diabetes mellitus with hyperglycemia; B37.9 Candidiasis, unspecified
CPT/HCPCS: 71045; 71046; 80048; 80053; 82962; 83036; 83735; 83880; 84439; 84443; 84484; 85025; 85027; 87070; 93005; 94640; 94660; 96372; 96374; 96375; 97162; 97165; 99291

== ENCOUNTER → 2024-01-10 11:20 | Outpatient (REF) | payer MEDICARE, OTHER, SELFPAY | LOC: RAD 11:20 | PROVIDERS: ATTENDING PHYSICIAN Nurse Practitioner Family | DX: E78.5 Hyperlipidemia, unspecified (principal); E11.69 Type 2 diabetes mellitus with other specified complication; I10 Essential (primary) hypertension; I65.29 Occlusion and stenosis of unspecified carotid artery; R09.89 Other specified symptoms and signs involving the circulatory and respiratory systems | CPT/HCPCS: 93880 ==

== ENCOUNTER 2024-04-13 21:45 | Inpatient (IN) | payer MEDICARE, OTHER, SELFPAY ==
[2024-04-13 14:44] VITALS: BP 105/65
[2024-04-13 15:44] LABS: Urine Albumin Trace (Neg - Trace); Urine Bilirubin Negative (Negative); Urine Character Clear (Clear); Urine Color Yellow; Urine Glucose 3+ (Negative); Urine Ketone Negative (Negative); Urine Leukocyte Negative (Negative); Urine Nitrite Negative (Negative); Urine Occult Blood Negative (Negative); Urine Urobilinogen 2+ (Neg - 1+)
[2024-04-13 17:44] VITALS: BMI 47.7
[2024-04-13 17:57] LABS: % Basophils 0.6 % (0-2); % Eosinophils 0.6 % (0-6); % Immature Granulocytes 0.4 % (0-0.5); % Lymphocytes 11.3 % (20.5-51.1); % Neutrophils 78.1 % (42.2-75.2); Absolute Basophils 0.1 10^3/uL (0-0.2); Absolute Eosinophils 0.1 10^3/uL (0-0.7); Absolute Lymphocytes 1.3 10^3/uL (1.2-3.4); Absolute Neutrophils 8.9 10^3/uL (1.4-6.5); Hematocrit 41.7 % (39.0-52.0); Hemoglobin 13.8 g/dL (13.0-18.0); Mean Corp Hgb Conc. 33.1 g/dL (33.0-37.0); Mean Corpuscular Hgb 29.9 pg (27.0-31.0); Mean Corpuscular Volume 90.3 fL (80.0-94.0); Mean Platelet Volume 11.4 fL (7.4-10.4); Nucleated Red Blood Cells % 0 % (-); Platelet Count 208 10^3/uL (130-400); Red Blood Cell Count 4.62 10^6/uL (4.70-6.10); Red Cell Dist. Width 14.9 % (11.5-14.5); White Blood Cell Count 11.4 10^3/uL (4.8-10.8)
[2024-04-13 18:00] VITALS: BP 134/55
[2024-04-13 18:21] LABS: Blood Urea Nitrogen 29 mg/dl (9-20); Calcium 9.6 mg/dl (8.4-10.2); Carbon Dioxide 19 mmol/L (22-30); Chloride 104 mmol/L (98-107); Estimated Creatinine Clearance 92 ml/min; Glucose 178 mg/dl (70-99); Sodium 139 mmol/L (135-145); eGFR 59.84
[2024-04-13 18:25] LABS: Troponin I < 0.012 ng/ml
[2024-04-13] MEDS: NSS 1000 IV (18:47)
--- NOTE | 2024-04-13 18:47 | ED.GENMED ---
History of Present Illness
General
Chief Complaint: Back Pain
Source: patient
Time Seen by Provider: 04/13/24 18:05
History of Present Illness
History of Present Illness:
68-year-old male with past medical history including hypertension, hyperlipidemia, diabetes, pulmonary embolism, previous TIA presenting to the emergency department for evaluation at the request of his primary care provider stating since this past
Saturday night he started with right-sided flank pain that he states started around the kidney area and has progressively ascended and become increasingly painful noting that he is now unable to lay down for any more than 15 to 20 minutes without
considerable pain. He does note that when he sits forward the pain seems to go away. He does note over the these couple of days he has started to feel little bit more short of breath but not noting any exertional dyspnea. Patient states he does
not believe to be coughing anymore than normal, was unaware that he had any fever (found out he had a fever at his primary care provider but was not given any medications prior to arrival), chills, rigors, bowel changes or urinary symptoms. He does
note intermittent nausea but believes this is related to his Ozempic medication. He has no other concerns at this time.
Past History
Past History
ED Past Medical History: CVA, HTN, Hypercholesterolemia, NIDDM and Other (Factor V Leiden deficiency, obstructive sleep apnea, PE)
ED Past Surgical History: Appendectomy, Tonsilectomy, Urological and Other
Social History
Tobacco: Former smoker
Alcohol: Occasional
Drug: None
Personal:
Living: alone
Employment: Disabled
Family History
Family History: Other (Diabetes, coronary disease, sister with a 'torn aorta'. Brother with diabetes)
Review of Systems
Review of Systems
All Other Systems: ROS reviewed and negative except as documented in HPI and ROS
Phy Exam
Physical Exam
Physical Exam:
GENERAL: Alert , in no apparent distress, 1 sentence dyspnea, significantly overweight
Head: Normocephalic atraumatic
EYE: Clear conjunctiva
NECK: Supple
ENT: o/p clr, mmm
CARDIAC: Borderline tachycardic rate and rhythm, faint systolic murmur left sternal border
LUNGS: Clear breath sounds bilaterally, appears dyspneic but no tachypnea, no wheezes/rales/rhonchi
ABDOMEN: Soft, without focal tenderness, no r/g, no cvat, large umbilical hernia without tenderness
NEUROLOGICAL: Alert and oriented
SKIN: Warm and dry, skin intact. Hyperpigmentation the bilateral lower extremities consistent with venous stasis
MUSCULOSKELETAL: Trace pitting bilateral lower extremity to the mid tibia edema, well perfused.
PSYCH: Normal and appropriate interaction.
Scores
Heart Failure Risk
Heart Failure Risk Score: Not Applicable
Heart Score for Chest Pain Patients
STEMI patient?: Not applicable
Withdrawal Assessment of Alcohol
Withdrawal Assessment Completed?: Not applicable
Course
Orders/Labs/Results
Orders:
Orders
04/13/24 14:49
Electrocardiogram (*1) Urgent
Reason for Study: Fatigue / Weakness
04/13/24 14:50
EKG- Treatment ONCE
04/13/24 15:25
Urinalysis Reflex To Culture Urgent
Date Specimen was Collected: 04/13/24
Time Specimen was Collected: 14:50
04/13/24 17:40
Electrocardiogram (*1) Urgent
Reason for Study: Shortness of Breath
04/13/24 17:41
EKG- Treatment ONCE
04/13/24 17:46
Basic Metabolic Panel Urgent
Complete Blood Count/With Diff Urgent
NT-proBNP Urgent
Comment: ADD ON
Troponin I Urgent
04/13/24 18:26
0.9% Sodium Chloride 1000 ml [Nss] 1,000 ml IV BOLUS
04/13/24 18:29
CT Chest Pe Study Urgent
Comment:
Reason For Exam: previous hx PE, fever, hypoxia, SOB
04/13/24 18:42
COVID-19 Antigen Urgent
Source: Nasal Swab
Lactic Acid Q4H
Comment: CANCEL 2nd LACTIC ACID IF 1st LACTIC ACID IS LESS THAN 2
04/13/24 20:14
Add On- LAB Urgent
Tests Added?: BNP
04/13/24 20:15
Heparin 10,000 units IV NOW STA
Heparin 49330 Units/250 ml 25,000 units in 250 ml IV PER PROTOCOL
Weight to be used for heparin protocol in kilograms (kg):: 173
Protocol:: DVT/PE
PTT Goal Range to be used:: PTT 73 to 111 seconds
Order type:: Initial
INITIAL Infusion Dose (UNITS/KG/hr) & then follow protocol:: 18 units/kg/hr
Infusion Dose in UNITS/hr & then follow protocol (UNITS/hr):: 2,000
INFUSION RATE in mL/hr & then follow protocol (mL/hr):: 20
For DVT/PE algorithm, re-bolus for low PTT?: Yes
PTT less than or equal to 64 seconds:: Re-bolus 80 units/kg (max 10,000units). Increase by 500 units/hr
(+ 5mL/hr)
PTT 64.1 to 72.9 seconds:: Re-bolus 40 units/kg (max 5,000 units). Increase by 300 units/hr
(+ 3mL/hr)
PTT 73 to 111 seconds:: Target Range. No change in rate.
PTT 111.1 to 130.9 seconds:: Decrease rate by 300 units/hr (- 3 mL/hr)
PTT 131 to 199.9 seconds:: HOLD for 1 hr. Then decrease by 400 units/hr (- 4mL/hr)
PTT greater than or equal to 200 seconds:: HOLD for 2 hrs & Notify Provider. Then decrease by 500 units/hr
(- 5mL/hr)
Lab follow-up:: Each change, PTT q6h until 2 consecutive are therapeutic. Then
PTT daily.
Nursing to Place Non Medication Order As Directed
Physician Order: PTT 6 hours after initial start of Heparin infusion
Above order entered?: Yes
04/13/24 20:23
PTT Urgent
Comment: Obtain baseline before beginning heparin infusion if not already collected
04/13/24 20:24
Heparin 10,000 units IV PRN PRN
Heparin 5,000 units IV PRN PRN
04/13/24 20:51
Admit/Transfer Patient As Directed
Co-Sign Provider:
Level of Care: Inpatient admission
Assign to:: IMU- Intermediate Care
Physician / Group: Monika
Diagnosis: Pulmonary Embolism
Reason for Hospitalization: heparin drip
Expected length of stay greater than two midnights?: Yes
ELOS- Estimated Length of Stay in days: 3
I certify the patient meets the requirements for IP care: Yes
04/13/24 20:54
Code Status As Directed
Resuscitation Status: Full Code
04/13/24 21:00
Flush (0.9% Sodium Chloride) [Flush (Nss)] See Dose Instructions IV PER PROTOCOL
04/13/24 21:05
Peripheral Venous Lwr Ext Bilat US [US Periph Venous LOWER Ext Rian] Urgent
Comment:
Reason For Exam: Pulmonary Embolism; LLE Edema
04/13/24 22:30
Lactic Acid Q4H
Comment: CANCEL 2nd LACTIC ACID IF 1st LACTIC ACID IS LESS THAN 2
04/14/24 02:30
PTT Routine
Abnormal Lab Results
04/13/24 04/13/24 04/13/24
15:25 17:46 18:42
WBC 11.4 H 10^3/uL
(4.8-10.8)
RBC 4.62 L 10^6/uL
(4.70-6.10)
RDW 14.9 H %
(11.5-14.5)
MPV 11.4 H fL
(7.4-10.4)
Absolute Neuts (auto) 8.9 H 10^3/uL
(1.4-6.5)
Absolute Monos (auto) 1.0 H 10^3/uL
(0.1-0.6)
Neutrophils % 78.1 H %
(42.2-75.2)
Lymphocytes % 11.3 L %
(20.5-51.1)
Carbon Dioxide 19 L mmol/L
(22-30)
BUN 29 H mg/dl
(9-20)
Glucose 178 H mg/dl
(70-99)
Lactic Acid 2.4 H mmol/L
(0.7-2.0)
Urine Urobilinogen 2+ A
(Neg - 1+)
Urine Glucose 3+ A
(Negative)
04/13/24 17:46
04/13/24 17:46
Vital Signs
Initial and Last Documented VS:
Initial Vital Signs
Temp Pulse Resp BP Pulse Ox
101.1 F H 112 16 105/65 94
04/13/24 14:44 04/13/24 14:44 04/13/24 14:44 04/13/24 14:44 04/13/24 14:44
Last Documented Vital Signs
Temp Pulse Resp BP Pulse Ox
98.9 F 88 25 99/58 92
04/13/24 17:42 04/13/24 20:00 04/13/24 19:00 04/13/24 19:00 04/13/24 19:00
Cloth Colorer consulted with Physician
Cloth Colorer consulted with physician?: Yes
Name of Physician Consulted: Noh
MDM/Problems Addressed
Differential Diagnosis Includes:
Pneumonia, pulmonary embolism, musculoskeletal back pain, atypical ACS presentation
MDM/Problems Addressed:
68-year-old male presenting to the emergency department for evaluation of right-sided mid to upper back pain, initially started as flank pain since this past Saturday. Today found to be febrile, hypoxic and appears 1 sentence dyspneic. Initially
at time of my exam patient's oxygen saturation would go from 88% to 94% and given his dyspnea I decided to place him on 2 L via nasal cannula. Patient is considerably overweight and could be playing a role in his shortness of breath. He does have
extensive history of factor V leading to DVT and PE in the past. Currently not on any anticoagulants. Given his low-grade fever combined with his hypoxia and right-sided back pain decision was made to obtain a CTA to rule out PE. Disposition
pending but given patient is currently requiring O2 I anticipate admission.
Chronic conditions affecting care: DM, Arrhythmia and Other (Factor V/PE)
*Pulse Oximetry
Patient hypoxic: yes
*EKG
Interpreted by ED Provider?: Yes
Comparison EKG: changes noted
Heart Rate: 89
Rate: normal
Rhythm: a-fib
[place]: left axis deviation
QRS Pattern: right bundle branch block
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
Rate: normal
Rhythm: a-fib
*Critical Care Note
Total Time (30-74mins, 75-104mins- exclusive of procedures): 35
comment:
Critical care statement: A total of 35 minutes of critical care time was provided for this patient. This includes management of unstable vital signs, evaluation of the patient at bedside, reviewing the patient's pertinent medical records, discussion
with consultants, review of old EKGs and review of pertinent medical records. This time with separate from time utilized to perform the aforementioned documented procedures
Data Reviewed
Review of Other/Old Records Reveals: Labs, Records and Radiology Studies
Source: patient and records
Patient Management
Discussion with other providers: Hospitalist, Medication Technician and Radiologist
Escalation/DeEscalation of care consider admission/obs:
8:15 PM -notified via [place] text by radiology that patient has right lower and right upper lobe pulmonary emboli with moderate clot burden and moderate right heart strain. There is also right-sided pleural effusion and possible pneumonia. A PERT
alert was called. BNP was added onto patient's labs. Case was also discussed with pulmonary who reviewed imaging and states that at this time patient can be managed with heparin and pulmonary consult in the morning. Hospitalist team was notified
and accepts for continued evaluation and treatment. Heparin bolus and drip ordered. Patient remains hemodynamically stable on 2 L via nasal cannula.
ED Attending Note
-
Portions of this chart may have been created with voice recognition software.� Occasional wrong word or��sound alike� substitutions may have occurred due to the inherent limitations of voice recognition software.
Discharge Plan
Departure
Patient Disposition: Admit
Date of Disposition: 04/13/24
Time of Disposition: 20:21
Presentation/result/management discussed w/ accepting MD/DO: Hospitalist
Discharge Problem:
Pulmonary embolus, right
Interventions
Interventions:
*Risk Screen - Suicide Last Done: 04/13/24 17:43
*General Assessment Last Done: 04/13/24 17:43
*Neglect/Abuse Screening Last Done: 04/13/24 17:43
ED- Fall Risk Assessment Last Done: 04/13/24 17:56
*ED COVID-19 Vaccine History Last Done: 04/13/24 17:43
ED-Musculoskeletal Assessment Last Done: 04/13/24 17:56
[2024-04-13 19:00] VITALS: BP 99/58
[2024-04-13 19:05] LABS: Lactic Acid 2.4 mmol/L (0.7-2.0)
[2024-04-13 19:12] LABS: COVID-19 Antigen Negative (Negative)
[2024-04-13] MEDS: HEPARIN 25000 UNITS/250 ML IV (20:29)
[2024-04-13] MEDS: HEPARIN 10000 UNITS IV (20:29)
[2024-04-13 20:44] LABS: APTT 31.9 Sec (23.4-35.0)
[2024-04-13 20:57] LABS: NT-proBNP 1450 pg/ml
--- NOTE | 2024-04-13 21:04 | HPS.HSE ---
Family Physician
-
Family Physician: RADHA Comer
Chief Complaint
-
Right flank pain and shortness of breath
History of Present Illness
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 Patient reports he developed significant right flank
pain Saturday evening. Notes the pain worsened over the next few days extending further up his posterior rib cage. He then developed associated shortness of breath. He was seen by his primary care provider today who then referred him to the
emergency department. Workup in the emergency department revealed evidence of pulmonary embolism. Patient admits that he has been more sedentary the past few weeks due to the extreme heat. He reports his prior PE was 10 years ago at which time he
was diagnosed with factor V Leiden deficiency. He reports that he completed a 1 year course of Xarelto but is now currently maintained on aspirin only.
Medical History
Past Medical History
Past Medical History: Reports Other
Additional Past Medical History:
Morbid Obesity
DM-II
Hypertension
Umbilical Hernia
History of DVT
Factor V Leiden
LAKE on CPAP
Past Surgical History: Reports Other
Additional Past Surgical History:
T&A
Septoplasty
Appendectomy
Orchiectomy
Social History
Tobacco: Non-smoker
Alcohol: Occasional (Very rare.)
Family History
Family History: Not pertinent
Allergies / Home Medications
Allergies reflects when Allergies were last updated in [facility].
Home Medications with original date entered in [facility]
Allergy/Medication List:
Allergies
Allergy/AdvReac Type Severity Reaction Status Date / Time
tirzepatide [From Mounjaro] Allergy Anaphylaxis Verified 04/13/24 20:21
Home Medications
aspirin 81 mg tablet,delayed release 81 mg PO DAILY Blood clot prevention/tx 04/07/18
atorvastatin 40 mg tablet 40 mg PO HS High cholesterol 04/07/18
furosemide 40 mg tablet 80 mg PO DAILY Fluid retention/Swelling 04/07/18
allopurinol 300 mg tablet 300 mg PO DAILY 08/09/23
ascorbic acid (vitamin C) 500 mg tablet (Vitamin C) 500 mg PO DAILY 08/09/23
hydralazine 50 mg tablet 50 mg PO BID@1600,2200 08/09/23
metformin 1,000 mg tablet 1,000 mg PO BID 08/09/23
omega 4-qfn-[id number]-fish oil 1,200 mg (144 mg-216 mg) capsule (Fish Oil) 1 cap PO BID 08/09/23
spironolactone 25 mg tablet 25 mg PO DAILY@1600 08/09/23
acetaminophen 325 mg tablet 1,300 mg PO DAILYPRN PRN mild pain 01/03/24
cholecalciferol (vitamin D3) 25 mcg (1,000 unit) tablet 25 mcg PO BID 01/03/24
dapagliflozin propanediol 10 mg tablet (Farxiga) 10 mg PO HS 01/03/24
dextran 70-hypromellose (PF) 0.1 %-0.3 % eye drops in a dropperette (Artificial Tears (PF)) 2 drp BOTH EYES DAILYPRN PRN allergies 01/03/24
diphenhydramine 25 mg-acetaminophen 500 mg tablet (Tylenol PM Extra Strength) 4 tab PO HS PRN sleep 01/03/24
hydralazine 25 mg tablet 25 mg PO TID@0800,1600,2200 01/03/24
insulin aspart U-100 100 unit/mL (3 mL) subcutaneous pen (Novolog FlexPen U-100 Insulin aspart) 0 sliding scale dose SC DIRECTED 01/03/24
labetalol 100 mg tablet 50 mg PO BID 01/03/24
sacubitril 24 mg-valsartan 26 mg tablet (Entresto) 0.5 tab PO BID 01/03/24
insulin aspart U-100 100 unit/mL (3 mL) subcutaneous pen 8 unit (0.08 mL) SC AC #15 mL 01/04/24
Prebiotic/Probiotic 2 gummy PO DAILY 04/13/24
insulin glargine 100 unit/mL (3 mL) subcutaneous pen (Lantus Solostar U-100 Insulin) 25 unit SC HS 04/13/24
polyethylene glycol 3350 17 gram oral powder packet (Miralax) 17 g PO DAILYPRN PRN constipation 04/13/24
sennosides 8.6 mg tablet (senna) 17.2 mg PO DAILYPRN PRN constipation 04/13/24
Review of Systems
-
A 12 point ROS was completed and negative except as noted: Yes
Constitutional: Denies Fever or Chills
Respiratory: Reports Trouble Breathing; Denies Cough
Cardiac: Denies Chest Pain or Palpitations
Physical Exam
Vital Signs
Vital Signs
Temp Pulse Resp BP Pulse Ox
98.9 F 88 25 99/58 92
04/13/24 17:42 04/13/24 20:00 04/13/24 19:00 04/13/24 19:00 04/13/24 19:00
Physical Exam
General: Comfortable and Conversant (Pursed Lip Breathing)
HEENT: Anicteric and Moist mucous membranes
Respiratory: Non Labored Respirations and Decreased Breath Sounds (Bilateral Bases)
Cardiac: S1/S2 and Regular Rhythm; No Tachycardia
GI: Soft, Non Tender and Other (Protuberant; Large Umbilical Hernia )
Rectal: Deferred by Provider
Musculoskeletal: No Clubbing, No Cyanosis and Other (+1 pitting edema on right lower extremity; +3 pitting edema left lower extremity)
Skin: Warm and Dry
Neuro: Awake, Alert, Oriented and Nonfocal/grossly intact
Psych: Calm
Laboratory Results
-
04/13/24 17:46
04/13/24 17:46
Laboratory Results
APTT 31.9 Sec (23.4-35.0) 04/13/24 20:23
Lactic Acid 2.4 mmol/L (0.7-2.0) H 04/13/24 18:42
Total Bilirubin Cancelled 04/13/24 17:46
AST Cancelled 04/13/24 17:46
ALT Cancelled 04/13/24 17:46
Alkaline Phosphatase Cancelled 04/13/24 17:46
Troponin I < 0.012 ng/ml 04/13/24 17:46
Data Reviewed
-
CT Scan: Report Reviewed by me
Lab Data: Labs Reviewed by me
Impression/Plan
-
Sub-Massive Right Middle and Lower Lobe Pulmonary Embolism
-Consult Pulmonary
-Continue heparin drip
-Check Peripheral Vascular Ultrasound
-Check Echocardiogram
Pneumonia, community-acquired
-Continue Zithromax and Ceftriaxone
Chronic Diastolic Heart Failure
-Hold Lasix, Spironolactone, Entresto and Farxiga due to hypotension
-Monitor Is&Os and Daily Weights
Essential Hypertension
-Hold Hydralazine and Labetalol due to hypotension
Hyperlipidemia
-Continue atorvastatin
Diabetes Mellitus, Type II
-Hold metformin post CT scan with IV dye
-Continue Lantus and Novolog
-Monitor sugars and continue coverage insulin
Obstructive Sleep Apnea
-Continue CPAP
Morbid Obesity
-Affects all aspects of care
Code Status: Full Code
--- NOTE | 2024-04-13 21:17 | W.PN.UPDATE ---
Update Note
Progress Note Update
This is an addendum to the H&P written by Khadra Mancia on 04/13/2024. 68-year-old male past medical history of factor V Leyden, DVT 10 years ago treated with anticoagulation for 1 year, diabetes, hypertension, HFpEF, morbid obesity,
anaphylaxis/angioedema, presenting with right flank pain with shortness of breath with exertion. He was found to have a fever primary care physician office today.
Patient with fever of 101.1. Tachycardic with EKG showing sinus tachycardia with right bundle branch which is old.
Labs show leukocytosis, lactic acid 2.4.
CT PE shows right lower lobe and right upper lobe pulm emboli with moderate clot burden. There is small right pleural effusion, possible mild right lower lobe pneumonia versus atelectasis.
Heparin drip. Check venous ultrasound. Check echocardiogram. Will need lifelong anticoagulation. Start ceftriaxone/Zithromycin for potential right lower lobe pneumonia given fever. Hold antihypertensives/diuretics due to soft blood pressure of
99/58, although initially higher. Patient initially given IV fluids. Caution with further IV fluids given history of heart failure.
[2024-04-13 22:43] VITALS: BP 151/83
[2024-04-13 22:48] VITALS: BMI 46.8
[2024-04-13 23:02] LABS: Glucose - Point of Care 130 mg/dl (70-99)
[2024-04-13] MEDS: LIPITOR 40 MG PO (23:16)
[2024-04-13] MEDS: ZITHROMAX 500 MG PO (23:16)
[2024-04-13] MEDS: ROCEPHIN 1000 MG IV (23:16)
[2024-04-13] MEDS: LANTUS 0.25 UNITS SC (23:17)
[2024-04-13 23:58] LABS: Lactic Acid 1.3 mmol/L (0.7-2.0)
[2024-04-14] VITALS (12 sets, daily range): BP systolic 155–184; BP diastolic 83–126; BMI 46.8
--- NOTE | 2024-04-14 00:10 | PTCARENOTE ---
Pt arrived from ER to IMU room 3354 at around 2230. Received pt on Heparin drip at 2000 units/hr, next PTT at 0230. Pt on 2LNC, SpO2 96%, then later placed on CPAP by respiratory therapist. HR in 80s, rhythm is regular but difficult to see any P
waves, pt with BBB as well. Physical assessment completed, see nursing shift assessment flowsheet for full details. Admission database completed. Pt resting with eyes closed at this time, call gleason and personal items within reach.
[2024-04-14 03:35] LABS: Hematocrit 37.9 % (39.0-52.0); Hemoglobin 12.8 g/dL (13.0-18.0); Mean Corp Hgb Conc. 33.8 g/dL (33.0-37.0); Mean Corpuscular Hgb 30.5 pg (27.0-31.0); Mean Corpuscular Volume 90.2 fL (80.0-94.0); Mean Platelet Volume 11.2 fL (7.4-10.4); Platelet Count 187 10^3/uL (130-400); Red Cell Dist. Width 14.9 % (11.5-14.5); White Blood Cell Count 9.1 10^3/uL (4.8-10.8)
[2024-04-14 03:58] LABS: APTT 39.8 Sec (23.4-35.0)
[2024-04-14 04:01] LABS: Blood Urea Nitrogen 27 mg/dl (9-20); Carbon Dioxide 23 mmol/L (22-30); Chloride 106 mmol/L (98-107); Estimated Creatinine Clearance 99 ml/min; Glucose 124 mg/dl (70-99); Potassium 3.8 mmol/L (3.5-5.1); Sodium 140 mmol/L (135-145); eGFR > 60.00
[2024-04-14] MEDS: HEPARIN 10000 UNITS IV ×2 (04:14→18:10)
[2024-04-14 07:51] LABS: Glucose - Point of Care 138 mg/dl (70-99)
[2024-04-14] MEDS: NOVOLOG FLEXPEN-MODERATE RESISTANCE SC (08:02)
[2024-04-14] MEDS: NOVOLOG FLEXPEN 8 UNITS SC ×3 (08:15→18:15)
[2024-04-14] MEDS: ZYLOPRIM 300 MG PO (08:15)
[2024-04-14] MEDS: VITAMIN D3 (cholecalciferol) 25 MCG PO ×2 (08:16→19:40)
--- NOTE | 2024-04-14 09:30 | PTCARENOTE ---
Pt AAOx3 , NSR with occ SB. Heparin at 25 ml/hr in r Hand Pt states he had a good night sleep. Rsp removed CPAP. No cp, no SOB pt is [place].
[2024-04-14 09:41] LABS: Glycohemoglobin (HgbA1c) 7.7 % (4.0-5.6)
[2024-04-14] MEDS: HEPARIN 25000 UNITS/250 ML IV ×2 (10:04→21:54)
[2024-04-14 12:07] LABS: Glucose - Point of Care 177 mg/dl (70-99)
--- NOTE | 2024-04-14 12:09 | W.PN.HOSP.TC ---
Today's Communication/Plan
-
IV hep for now
wean O2 as tolerated
IV abx
restart bp meds
Pulm recs
Assessment / Plan
Assessment / Plan
Sub-Massive Right Middle and Lower Lobe Pulmonary Embolism
Acute left lower extremity DVT in the left popliteal and posterior tibial�nonocclusive
Factor V Leyden with hx of DVT/PE-off xarelto (Was on it for 1 year)
-Consult Pulmonary
-Continue heparin drip
-Check Echocardiogram
-Probably at this point will require lifelong anticoagulation as patient with significant decreased sedentary lifestyle
-PESI Class IV, High Risk: 4.0-11.4% 30-day mortality in this group. (M, Hx of HF and hypotension on admit)
Pneumonia, community-acquired
-Continue Zithromax and Ceftriaxone
Acute hypoxic respiratory insufficiency likely multifactorial due to pneumonia and/or PE
-Wean oxygen as tolerated
-Other plan as above
Chronic Diastolic Heart Failure
-Hold Spironolactone, Entresto
-restart farxiga, hydralazine and Lasix
-Monitor Is&Os and Daily Weights
Essential Hypertension
-Restart hydralazine and Lasix
-hold labetalol in the setting of submassive PE. Also avoid hypotension and restart BP meds slowly.
Hyperlipidemia
-Continue atorvastatin
Diabetes Mellitus, Type II
-Hold metformin post CT scan with IV dye
-Continue Lantus and Novolog
-A1C 7.7
-Monitor sugars and continue coverage insulin
Obstructive Sleep Apnea
-Continue CPAP
Morbid Obesity
-Affects all aspects of care
Code Status: Full Code
Anticipated Discharge: > 48 hours
Subjective/Interval History
-
Date of Service: April 14, 2024
states of sedentary lifestyle
Denies chest pain or palpitations
Objective Data
-
Labs:
Laboratory Results
04/14/24 04/14/24
03:13 10:11
WBC 9.1
Hgb 12.8 L
Hct 37.9 L
Plt Count 187
APTT 39.8 H Pending
Sodium 140
Potassium 3.8
Chloride 106
Carbon Dioxide 23
BUN 27 H
Creatinine 1.2
Glucose 124 H
Calcium 9.0
Vital Signs:
Vital Signs
Temp Pulse Resp BP Pulse Ox
96.9 F L 75 24 169/92 93
04/14/24 07:32 04/14/24 10:00 04/14/24 10:00 04/14/24 10:00 04/14/24 09:00
I&O
04/13/24 04/14/24 04/15/24
06:59 06:59 06:59
Intake Total 674 / 674
Output Total 700 / 700 200 / 200
Balance -26 / -26 -200 / -200
Physical Exam
-
General: Well Developed, No Apparent Distress and Morbidly Obese
HEENT: Normocephalic, Atraumatic, Moist Mucous Membranes and Oxygen
Respiratory: Clear to Auscultation (Anteriorly)
Cardiac: Regular Rhythm and S1/S2; Negative Murmur, Rub or Gallop
GI: Soft, Nontender, Nondistended and Normal Bowel Sounds; Negative Organomegaly
Rectal: Deferred by Provider
Musculoskeletal: No Clubbing, No Cyanosis and Edema, Left Lower Extrem
Skin: Negative Rash
Neuro: Awake, AO x 3, No Motor Deficits and Nonfocal/Grossly Intact
Psych: Calm
Data Reviewed
-
Total Time Spent with Patient (in minutes): 55
[2024-04-14 12:16] LABS: APTT 83.6 Sec (23.4-35.0)
--- NOTE | 2024-04-14 12:33 | PTCARENOTE ---
2D Echo in progress. PTT therapeutic no change in Heparin rate
--- NOTE | 2024-04-14 12:41 | CON.PUL ---
Consultation
Consultation Request
Date/Time Consultation Requested: 04/13/2024 - 2228
Date/Time Consultation Performed: 04/14/2024 - 1149
Requesting Provider: Blanche Gaviria PA-C
Performing Provider: Aj uRbio MD
Reason for Consultation: Acute PE
Medical History
-
Chief Complaint: Flank pain
History of Present Illness:
68-year-old morbidly obese M with PMHx of severe LAKE on CPAP, Hx of PE (Dx 2014 s/p Tx with xarelto), DM type II, Hx of factor V Leiden (heterozygous), CAD and carotid artery stenosis who p/w R-sided flank pain since evening of 04/08/2024. His pain
worsened and spread to his back and was a/w SOB. He was referred here by his PCP. Pt admits to being more sedentary as of late due to the heat. He was febrile in the ER to 101.1F, tachy to 112bpm, BP 105/65, and SpO2 94% on RA. Labs showed
leukocytosis to 11.4, Hb 13.8, lactate 2.4, negative troponin x1, BNP 1450 (709 on 01/03/2024), UA negative for UTI and covid-19 antigen negative. CTA chest showed an acute PE in RUL + RLL with moderate clot burden and RV strain. Lower extremity
duplex (+) for LLE DVT. Started on heparin gtt in the ER and given 1L IVF of NS 0.9%. He has required 2L/min NC, and was admitted to hospitalist service. Pulmonary consulted for additional recommendations.
When I saw the pt today he was resting in bed in NAD. He was on 2L/min NC breathing comfortably, with SpO2 95%, HR 71 and BP 176/126. He still feels SOB, mainly with exertion. Denies chest pain, still with back pain. Denies abd pain, N/V/f/c.
Of note, pt follows with us in the [facility] office. Last office visit on 03/12/2024 with RADHA Araujo. He has been compliant with his CPAP for severe LAKE. He has a Hx of DVT/PE with FVL, previously on xarelto, now on ASA daily. He has dyspnea
which is improved with albuterol HFA. Last full PFT on 12/19/2023 was normal with no restriction or obstruction, and normal gas exchange capacity (DLco: 83%).
PMHx: DM type II, Hx of PE (2015 s/p treatment with Xarelto), Hx of DVT, HTN, HLD, Severe LAKE on CPAP, Hx of shingles (2018), Hx of TIA, CAD, carotid artery stenosis, factor V Leiden (heterozygous), Hx of COVID-19, umbilical hernia, and vitamin D
deficiency
PSHx: Orchiectomy (1960), appendectomy, tonsillectomy, hernia repair, T+A, septoplasty + colonoscopy
Past Medical History
Past Medical History: Other (above as per HPI)
Past Surgical History: Other (above as per HPI)
Social History
Tobacco: Non-smoker
Alcohol: Other (Rarely)
Drug: None
Family History
Family History: Cancer (Brother: Bone cancer) and Other (Brother: Hx of colonic polyps)
Allergies / Home Medications
Allergies
Allergy/AdvReac Type Severity Reaction Status Date / Time
tirzepatide [From Mounjaro] Allergy Anaphylaxis Verified 04/13/24 20:21
Home Medications
�Medication �Instructions �Recorded �Confirmed �Last Taken �Type
aspirin 81 mg tablet,delayed 81 mg PO DAILY Blood clot 04/07/18 04/13/24 04/13/24 History
release prevention/tx
atorvastatin 40 mg tablet 40 mg PO HS High cholesterol 04/07/18 04/13/24 04/12/24 History
furosemide 40 mg tablet 80 mg PO DAILY Fluid 04/07/18 04/13/24 04/13/24 History
retention/Swelling
allopurinol 300 mg tablet 300 mg PO DAILY Gout 08/09/23 04/13/24 04/13/24 History
ascorbic acid (vitamin C) 500 mg 500 mg PO DAILY Supplement 08/09/23 04/13/24 04/13/24 History
tablet (Vitamin C)
hydralazine 50 mg tablet 50 mg PO BID@1600,2200 Blood 08/09/23 04/13/24 04/12/24 History
Pressure
metformin 1,000 mg tablet 1,000 mg PO BID Diabetes 08/09/23 04/13/24 04/13/24 History
omega 9-amu-vmf-fish oil 1,200 mg 1 cap PO BID Supplement 08/09/23 04/13/24 04/13/24 History
(144 mg-216 mg) capsule (Fish Oil)
spironolactone 25 mg tablet 25 mg PO DAILY@1600 Heart 08/09/23 04/13/24 04/12/24 History
Disease/Condition
acetaminophen 325 mg tablet 1,300 mg PO DAILYPRN PRN mild pain 01/03/24 04/13/24 Unknown History
cholecalciferol (vitamin D3) 25 25 mcg PO BID Supplement 01/03/24 04/13/24 04/13/24 History
mcg (1,000 unit) tablet
dapagliflozin propanediol 10 mg 10 mg PO HS Heart Disease/Condition 01/03/24 04/13/24 04/12/24 History
tablet (Farxiga)
dextran 70-hypromellose (PF) 0.1 2 drp BOTH EYES DAILYPRN PRN 01/03/24 04/13/24 Unknown History
%-0.3 % eye drops in a dropperette allergies
(Artificial Tears (PF))
diphenhydramine 25 4 tab PO HS PRN sleep 01/03/24 04/13/24 Unknown History
mg-acetaminophen 500 mg tablet
(Tylenol PM Extra Strength)
hydralazine 25 mg tablet 25 mg PO TID@0800,1600,2200 Blood 01/03/24 04/13/24 04/13/24 History
Pressure
insulin aspart U-100 100 unit/mL 0 sliding scale dose SC 01/03/24 04/13/24 Unknown History
(3 mL) subcutaneous pen (Novolog DIRECTED Diabetes
FlexPen U-100 Insulin aspart)
labetalol 100 mg tablet 50 mg PO BID Blood Pressure 01/03/24 04/13/24 04/13/24 History
sacubitril 24 mg-valsartan 26 mg 0.5 tab PO BID Heart 01/03/24 04/13/24 04/13/24 History
tablet (Entresto) Disease/Condition
insulin aspart U-100 100 unit/mL 8 unit (0.08 mL) SC AC #15 mL 01/04/24 04/13/24 04/13/24 Rx
(3 mL) subcutaneous pen
Prebiotic/Probiotic 2 gummy PO DAILY Gastrointestinal 04/13/24 04/13/24 04/13/24 History
Issue
insulin glargine 100 unit/mL (3 25 unit SC HS Diabetes 04/13/24 04/13/24 04/12/24 History
mL) subcutaneous pen (Lantus
Solostar U-100 Insulin)
polyethylene glycol 3350 17 gram 17 g PO DAILYPRN PRN constipation 04/13/24 04/13/24 Unknown History
oral powder packet (Miralax)
sennosides 8.6 mg tablet (senna) 17.2 mg PO DAILYPRN PRN 04/13/24 04/13/24 Unknown History
constipation
Review of Systems
-
History Source: Patient
All other systems: Negative unless noted
Vitals / Labs / Diagnostic Testing
Vital Signs
Temp Pulse Resp BP Pulse Ox
97.4 F 67 16 156/86 93
04/14/24 11:21 04/14/24 12:00 04/14/24 12:00 04/14/24 12:00 04/14/24 09:00
Lab Data
04/14/24 03:13
04/14/24 03:13
Laboratory Results
04/13/24 04/14/24 04/14/24
20: 03:13 10:11
APTT 31.9 39.8 H 83.6 H
Diagnostic Testing:
Physical Exam
-
HEENT: Normocephalic, Anicteric and Other (thick neck)
Cardiovascular: S1/S2 and Peripheral Edema (negative)
Respiratory: Wheeze (negative), Rales (negative), Rhonchi (negative) and Accessory Resp Muscle Use (negative)
GI: Soft, Distended (abdominal obesity), Non Tender and Normal Bowel Sounds
Neurology: Awake, Alert and Tremors (negative)
Skin: Warm and Dry
General: Respiratory Distress (negative) and Comfortable
Assessment
-
Assessment:
68-year-old morbidly obese M with PMHx of severe LAKE on CPAP, Hx of PE (Dx 2014 s/p Tx with xarelto), DM type II, Hx of factor V Leiden (heterozygous), CAD and carotid artery stenosis who p/w R-sided flank pain since evening of 04/08/2024. His pain
worsened and spread to his back and was a/w SOB. He was referred here by his PCP. Pt admits to being more sedentary as of late due to the heat. He was febrile in the ER to 101.1F, tachy to 112bpm, BP 105/65, and SpO2 94% on RA. Labs showed
leukocytosis to 11.4, Hb 13.8, lactate 2.4, negative troponin x1, BNP 1450 (709 on 01/03/2024), UA negative for UTI and covid-19 antigen negative. CTA chest showed an acute PE in RUL + RLL with moderate clot burden and RV strain. Lower extremity
duplex (+) for LLE DVT. Started on heparin gtt in the ER and given 1L IVF of NS 0.9%. He has required 2L/min NC, and was admitted to hospitalist service. Pulmonary consulted for additional recommendations.
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
hernia, and vitamin D deficiency
Impression:
#Acute submassive PE involving RUL/RLL with moderate clot burden and RV strain
#Acute respiratory failure with hypoxia due to above
#LLE non-occlusive DVT involving the popliteal vein + PT vein
#DM type II
#Severe LAKE on CPAP
#CAD
#Carotid artery stenosis
#Hx of DVT/PE
#Hx of factor V Leiden (heterozygous)
Plan:
- Continue systemic anticoagulation with heparin drip X 48 hours before transitioning to NOAC
- Check transthoracic echo to assess right-sided pressures and RV systolic function --> shows dilated, hypocontractile RV with mild pHTN, dilated aortic root and RV pressure and volume overload
- Maintain SpO2 >90-94% with supplemental O2 - wean as tolerated with ambulatory pulse oximetry prior to discharge
- Incentive spirometer encouraged
- Outpatient hematology evaluation for hypercoagulable workup and assistance with duration of AC treatment
- Repeat TTE in ~6 weeks
- Continue CPAP with sleep
- Replete electrolytes with K>4, Mg>2
- Maintain euglycemia with goal BG >100 and <180
- prn nebulized bronchodilators
- PT/OT
- Pain control
- DVT ppx: heparin gtt
Pulmonary service will continue to follow along. Pt already follows with us in the [facility] office (last office visit on 03/12/2024 with RADHA Araujo), and we will arrange for follow up in 4-6 weeks.
Patient was seen and evaluated on 04/14/2024.
Total time spent today was 55 minutes for this encounter. Time includes reviewing laboratory test/imaging results, reviewing pertinent medical records, obtaining and reviewing medical history, performing an appropriate exam, ordering medications,
tests and procedures. Time also includes documentation of this encounter, coordinating patient care and communicating with other healthcare professionals. Total time does not include separately billed tests performed on this date of service.
Data:
CTA Chest 04-13-2024:
Right lower lobe and right upper lobe pulmonary emboli as described above. Moderate clot burden. Findings suggesting moderate right heart strain.
Small right pleural effusion.
Possible mild right lower lobe pneumonia versus atelectasis.
Mild left lower lobe atelectasis versus scarring.
Bilateral lower extremity venous duplex 04-13-2024:
No evidence of DVT of the right lower extremity.
DVT of the left leg at the level in the the knee extending into the calf.
TTE 04-14-2024:
Technically difficult study - Definity used.
Left ventricle is mildly dilated. Mild concentric left ventricular hypertrophy.
Normal left ventricular systolic function. Flattened septum in systole and
diastole consistent with RV pressure and volume overload. Left ventricular
ejection fraction is 55-60%.
Dilated, hypocontractile right ventricle.
Mild tricuspid regurgitation. Estimated pulmonary artery pressure of 33 mmHg.
The IVC is severely dilated.
Dilated aortic root.
No prior study available for comparison.
Outpatient [facility] Data:
Sleep Study:
������ Findings:�HST 08/18/15: ARMIDA 60, O2 nael 71.3%.�
PFT:
�� �12/19/23- FVC 4.65 or 90%, FEV1 3.56 or 92%, Ratio 77. TLC 7.54 or 95%. DLCO 25.86 or 83%.
��������-
��������03/12/24- FVC 4.59 pr 89%, FEV1 3.44 or 90%, ratio 75. TLC 6.88 or87%, DLCO 31.90 or 103%..
[2024-04-14] MEDS: NOVOLOG FLEXPEN-MODERATE RESISTANCE 1 UNITS SC ×2 (12:54→18:14)
[2024-04-14] MEDS: APRESOLINE 25 MG PO ×2 (15:58→21:28)
[2024-04-14] MEDS: APRESOLINE 50 MG PO ×2 (15:59→21:29)
--- NOTE | 2024-04-14 16:49 | CM ---
Patient with Hx obesity with Dx Pulmonary Embolism, CAP. O2 2L. Reeiving Heparin gtt, IV Abx.
Met with patient who resides with his brother in a mobile home with ramp at entrance.
The patient has been independent in ADLs and ambulation.
His brother assists him as needed.
DME - RW, SPC, Freestyle Hang 2 Continuous Glucose Monitor, Glucometer
Prior [facility]
Prior [facility]
PCP - Aga White
Pharmacy - [address], [place]
Offered VN and patient declined.
The patient drove himself to the hospital and will drive himself home.
Plan watch for any home O2 needs.
Plan home.
[2024-04-14 17:55] LABS: APTT 35.8 Sec (23.4-35.0)
[2024-04-14 18:11] LABS: Glucose - Point of Care 160 mg/dl (70-99)
[2024-04-14 21:25] LABS: Glucose - Point of Care 171 mg/dl (70-99)
[2024-04-14] MEDS: LIPITOR 40 MG PO (21:28)
[2024-04-14] MEDS: ZITHROMAX 500 MG PO (21:29)
[2024-04-14] MEDS: LANTUS 0.25 UNITS SC (21:29)
[2024-04-14] MEDS: FARXIGA 10 MG PO (21:29)
[2024-04-14 23:20] LABS: APTT 74.3 Sec (23.4-35.0)
[2024-04-15] VITALS (19 sets, daily range): BP systolic 140–181; BP diastolic 79–113; PULSE 60–70; BMI 47.2
[2024-04-15] MEDS: ROCEPHIN 1000 MG IV (00:38)
[2024-04-15 05:22] LABS: Hematocrit 39.3 % (39.0-52.0); Mean Corp Hgb Conc. 33.1 g/dL (33.0-37.0); Mean Corpuscular Hgb 30.2 pg (27.0-31.0); Mean Corpuscular Volume 91.2 fL (80.0-94.0); Mean Platelet Volume 10.4 fL (7.4-10.4); Platelet Count 195 10^3/uL (130-400); Red Blood Cell Count 4.31 10^6/uL (4.70-6.10); Red Cell Dist. Width 14.5 % (11.5-14.5); White Blood Cell Count 9.1 10^3/uL (4.8-10.8)
[2024-04-15 05:31] LABS: APTT 56.3 Sec (23.4-35.0)
--- NOTE | 2024-04-15 05:38 | PTCARENOTE ---
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 Heparin gtt infusing per protocol. Pt has no complaints, will continue with plan of care.
[2024-04-15 05:44] LABS: Blood Urea Nitrogen 22 mg/dl (9-20); Calcium 9.6 mg/dl (8.4-10.2); Carbon Dioxide 23 mmol/L (22-30); Chloride 106 mmol/L (98-107); Estimated Creatinine Clearance 119 ml/min; Glucose 140 mg/dl (70-99); Sodium 139 mmol/L (135-145); eGFR > 60.00
[2024-04-15] MEDS: HEPARIN 10000 UNITS IV (05:59)
[2024-04-15] MEDS: HEPARIN 25000 UNITS/250 ML IV ×2 (06:07→21:09)
[2024-04-15 08:02] LABS: Glucose - Point of Care 143 mg/dl (70-99)
[2024-04-15] MEDS: LASIX 80 MG PO (08:17)
[2024-04-15] MEDS: VISBIOME 2 CAP PO (08:19)
[2024-04-15] MEDS: VITAMIN D3 (cholecalciferol) 25 MCG PO ×2 (08:19→20:57)
[2024-04-15] MEDS: APRESOLINE 25 MG PO ×3 (08:20→21:00)
[2024-04-15] MEDS: ZYLOPRIM 300 MG PO (08:20)
[2024-04-15] MEDS: NOVOLOG FLEXPEN 8 UNITS SC ×3 (08:55→17:39)
[2024-04-15] MEDS: NOVOLOG FLEXPEN-MODERATE RESISTANCE SC ×3 (08:56→17:39)
--- NOTE | 2024-04-15 10:21 | W.PN.PUL3 ---
Today's Communication / Plan
-
Okay to transition to Andrew tomorrow AM
Case management consultation to assure her Andrew is affordable
Antibiotics but check/trend procalcitonin as I am not fully convinced there is an infection here
CPAP with sleep
Outpatient follow up with our office
Assessment
-
Assessment:
68-year-old morbidly obese M with PMHx of severe LAKE on CPAP, Hx of PE (Dx 2015 s/p Tx with xarelto), DM type II, Hx of factor V Leiden (heterozygous), CAD and carotid artery stenosis who p/w R-sided flank pain since evening of 04/08/2024. His pain
worsened and spread to his back and was a/w SOB. He was referred here by his PCP. Pt admits to being more sedentary as of late due to the heat. He was febrile in the ER to 101.1F, tachy to 112bpm, BP 105/65, and SpO2 94% on RA. Labs showed
leukocytosis to 11.4, Hb 13.8, lactate 2.4, negative troponin x1, BNP 1450 (709 on 01/03/2024), UA negative for UTI and covid-19 antigen negative. CTA chest showed an acute PE in RUL + RLL with moderate clot burden and RV strain. Lower extremity
duplex (+) for LLE DVT. Started on heparin gtt in the ER and given 1L IVF of NS 0.9%. He has required 2L/min NC, and was admitted to hospitalist service. Pulmonary consulted for additional recommendations.
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
hernia, and vitamin D deficiency
Impression:
#Acute submassive PE involving RUL/RLL with moderate clot burden and RV strain
#Acute respiratory failure with hypoxia due to above
#LLE non-occlusive DVT involving the popliteal vein + PT vein
#DM type II
#Severe LAKE on CPAP
#CAD
#Carotid artery stenosis
#Hx of DVT/PE
#Hx of factor V Leiden (heterozygous)
Plan:
- Continue systemic anticoagulation with heparin drip X 48 hours before transitioning to NOAC - transition tomorrow AM to NOAC, preferably Eliquis
- Case management consult to assist with affordability of Eliquis
- Check transthoracic echo to assess right-sided pressures and RV systolic function --> shows dilated, hypocontractile RV with mild pHTN, dilated aortic root and RV pressure and volume overload
- Maintain SpO2 >90-94% with supplemental O2 - wean as tolerated with ambulatory pulse oximetry prior to discharge
- Incentive spirometer encouraged
- Outpatient hematology evaluation for hypercoagulable workup and assistance with duration of AC treatment
- Repeat TTE in ~6 weeks
- Continue CPAP with sleep
- Empiric Abx with rocephin + zithromax; if blood Cx remain negative x 48 hrs and he remains afebrile with no leukocytosis, would stop Abx
- Check procal
- Replete electrolytes with K>4, Mg>2
- Maintain euglycemia with goal BG >100 and <180
- prn nebulized bronchodilators
- PT/OT
- Pain control
- DVT ppx: heparin gtt
Pulmonary service will continue to follow along. Pt already follows with us in the [facility] office (last office visit on 03/12/2024 with RADHA Araujo), and we will arrange for follow up in 4-6 weeks.
Total time spent today was 35 minutes for this encounter. Time includes reviewing laboratory test/imaging results, reviewing pertinent medical records, obtaining and reviewing medical history, performing an appropriate exam, ordering medications,
tests and procedures. Time also includes documentation of this encounter, coordinating patient care and communicating with other healthcare professionals. Total time does not include separately billed tests performed on this date of service.
Data:
CTA Chest 04-13-2024:
Right lower lobe and right upper lobe pulmonary emboli as described above. Moderate clot burden. Findings suggesting moderate right heart strain.
Small right pleural effusion.
Possible mild right lower lobe pneumonia versus atelectasis.
Mild left lower lobe atelectasis versus scarring.
Bilateral lower extremity venous duplex 04-13-2024:
No evidence of DVT of the right lower extremity.
DVT of the left leg at the level in the the knee extending into the calf.
TTE 04-14-2024:
Technically difficult study - Definity used.
Left ventricle is mildly dilated. Mild concentric left ventricular hypertrophy.
Normal left ventricular systolic function. Flattened septum in systole and
diastole consistent with RV pressure and volume overload. Left ventricular
ejection fraction is 55-60%.
Dilated, hypocontractile right ventricle.
Mild tricuspid regurgitation. Estimated pulmonary artery pressure of 33 mmHg.
The IVC is severely dilated.
Dilated aortic root.
No prior study available for comparison.
Outpatient [facility] Data:
Sleep Study:
������ Findings:�HST 08/18/15: ARMIDA 60, O2 nael 71.3%.�
PFT:
�� �12/19/23- FVC 4.65 or 90%, FEV1 3.56 or 92%, Ratio 77. TLC 7.54 or 95%. DLCO 25.86 or 83%.
��������-
��������03/12/24- FVC 4.59 pr 89%, FEV1 3.44 or 90%, ratio 75. TLC 6.88 or87%, DLCO 31.90 or 103%..
Subjective Data
-
Date of Service:
Date of Service: April 15, 2024
Chief Complaint: Pulmonary Follow Up
Subjective:
Seen today at bedside. Resting in bed in NAD. Currently on 1L/min NC with SpO2 92%, HR 83 and BP 166/93. He says he feels better today with more energy and less SOB. Denies chest pain, abd pain, N/V/f/c. Wore CPAP overnight at [id number] bled
with 2L/min.
Review of Systems
General: Other (negative unless mentioned above)
Objective Data
Data Reviewed
Vital Signs / I&O / Oxygen:
Vital Signs
Temp Pulse Resp BP Pulse Ox
97.4 F 63 17 177/89 96
04/15/24 07:30 04/15/24 08:20 04/15/24 05:00 04/15/24 08:20 04/15/24 05:00
Intake and Output
04/14/24 04/15/24 04/16/24
06:59 06:59 06:59
Intake Total 674 / 674 300 / 300
Output Total 700 / 700 1675 / 1675
Balance -26 / -26 -1375 / -1375
SaO2 96
Nasal Cannula flow liters per 2
minute
Physical Exam
General: Respiratory Distress (negative), Comfortable and Other (morbidly obese)
HEENT: Normocephalic, Anicteric and Other (thick neck)
Cardiovascular: S1-S2 and Peripheral Edema (Trace LE edema)
Respiratory: Wheeze (negative), Crackles (negative), Rhonchi (negative) and Non-Labored Respirations
GI: Soft, Distended (abdominal obesity), Non Tender and Normal Bowel Sounds
Neurology: Awake, Alert and Tremors (negative)
Skin: Warm, Dry and Jaundice (negative)
Labs/Micro/Reports
Lab Data
04/15/24 05:06
04/15/24 05:06
Laboratory Results
04/14/24 04/14/24 04/14/24
10:11 17:04 17:34
APTT 83.6 H Cancelled 35.8 H
04/14/24 04/15/24
23:03 05:06
APTT 74.3 H 56.3 H
[2024-04-15] MEDS: NOVOLOG FLEXPEN-MODERATE RESISTANCE 1 UNITS SC (12:46)
--- NOTE | 2024-04-15 12:50 | CM ---
Patient with Hx obesity with Dx Pulmonary Embolism, CAP. O2 1L. Receiving Heparin gtt, IV Abx.
CM Consult: Samuels check Eliquis & Xarelto
Patient agrees to cost of Eliquis (starter pack for DVT/PE $146.32) rather than Xarelto (starter pack DVT/PE $280.33), gave patient Eliquis Free Month card.
[facility] notified.
[2024-04-15 12:53] LABS: Glucose - Point of Care 155 mg/dl (70-99)
[2024-04-15] MEDS: APRESOLINE 50 MG PO ×2 (16:23→21:01)
--- NOTE | 2024-04-15 17:07 | W.PN.HOSP.TC ---
Today's Communication/Plan
-
IV heparin for another 24 hours
Plan is to transition to oral anticoagulation tomorrow.
Attempt to wean off oxygen
Observe off antibiotics.
Increase activity
Assessment / Plan
Assessment / Plan
Impression:
Acute submassive pulmonary embolism.
Left lower extremity DVT.
Prior history of DVT PE with factor V Leyden mutation (heterozygous) treated with anticoagulation/Xarelto. Not on anticoagulation prior to presentation.
Acute hypoxic respiratory failure secondary to PE.
Obesity with BMI of 47
Sedentary lifestyle
Other conditions include
Type 2 diabetes
Severe obstructive sleep apnea on CPAP
CAD
Carotid artery stenosis.
Plan
Sub-Massive Right Middle and Lower Lobe Pulmonary Embolism
Acute left lower extremity DVT in the left popliteal and posterior tibial�nonocclusive
Factor V Leyden with hx of DVT/PE-off xarelto (Was on it for 1 year)
-PESI Class IV, High Risk: 4.0-11.4% 30-day mortality in this group. (M, Hx of HF and hypotension on admit)
Echocardiogram LVEF 55-60%. Dilated, hypocontractile right ventricle. Mild TR with pulmonary artery pressure 38 mmHg. IVC severely dilated. Dilated aortic root.
Continue oxygen supplementation with attempt to wean off
IV heparin for first 48 hours with plan to transition to oral anticoagulation with Eliquis on 04/16. Likely will need lifelong anticoagulation.
Initial concern for pneumonia, community-acquired.
Right lower lobe consolidation most likely secondary to atelectasis
Initially on antibiotics ceftriaxone/Zithromax. Will hold further antibiotics and monitor closely.
Acute hypoxic respiratory insufficiency likely multifactorial due to pneumonia and/or PE
-Wean oxygen as tolerated
-Other plan as above
Obstructive sleep apnea
Continue CPAP
Chronic Diastolic Heart Failure
-Hold Spironolactone, Entresto
-restart farxiga, hydralazine and Lasix
-Monitor Is&Os and Daily Weights
Essential Hypertension
-Restart hydralazine and Lasix
-hold labetalol in the setting of submassive PE. Also avoid hypotension and restart BP meds slowly.
Hyperlipidemia
-Continue atorvastatin
Diabetes Mellitus, Type II
-Hold metformin post CT scan with IV dye
-Continue Lantus and Novolog
-A1C 7.7
-Monitor sugars and continue coverage insulin
Morbid Obesity
-Affects all aspects of care
Code Status: Full Code
Anticipated Discharge: 24 - 48 hours
Subjective/Interval History
-
Date of Service: April 15, 2024
Objective Data
-
Labs:
Laboratory Results
04/15/24 04/15/24 04/15/24
05:06 12:11 18:00
WBC 9.1
Hgb 13.0
Hct 39.3
Plt Count 195
APTT 56.3 H 101.0 H Pending
Sodium 139
Potassium 4.0
Chloride 106
Carbon Dioxide 23
BUN 22 H
Creatinine 1.0
Glucose 140 H
Calcium 9.6
Vital Signs:
Vital Signs
Temp Pulse Resp BP Pulse Ox
98 F 83 21 176/107 94
04/15/24 15:25 04/15/24 16:25 04/15/24 12:06 04/15/24 16:25 04/15/24 14:01
I&O
04/14/24 04/15/24 04/16/24
06:59 06:59 06:59
Intake Total 674 / 674 300 / 300
Output Total 700 / 700 1675 / 1675 1400 / 1400
Balance -26 / -26 -1375 / -1375 -1400 / -1400
Physical Exam
-
General: Well Developed and No Apparent Distress
HEENT: Normocephalic, Atraumatic and Moist Mucous Membranes
Respiratory: Clear to Auscultation
Cardiac: Regular Rhythm and S1/S2; Negative Murmur, Rub or Gallop
GI: Soft, Nontender, Nondistended and Normal Bowel Sounds; Negative Organomegaly
Rectal: Deferred by Provider
Musculoskeletal: No Clubbing, No Cyanosis and No Edema
Skin: Negative Rash
Neuro: Nonfocal/Grossly Intact
[2024-04-15 17:46] LABS: Glucose - Point of Care 132 mg/dl (70-99)
[2024-04-15 18:32] LABS: APTT 85.4 Sec (23.4-35.0)
[2024-04-15] MEDS: LIPITOR 40 MG PO (21:00)
[2024-04-15] MEDS: FARXIGA 10 MG PO (21:00)
[2024-04-15] MEDS: LANTUS 0.25 UNITS SC (21:01)
[2024-04-15 21:07] LABS: Glucose - Point of Care 134 mg/dl (70-99)
[2024-04-15] MEDS: TYLENOL 650 MG PO (21:08)
[2024-04-16] VITALS (13 sets, daily range): BP systolic 129–193; BP diastolic 79–125; PULSE 68; BMI 47.0
--- NOTE | 2024-04-16 02:59 | PTCARENOTE ---
Pt AAOx3, pleasant, conversant. BP elevated, remains similar to previous shifts. Pt received scheduled hydralazine, see MAR. SR to SB on monitor. Pt denies complaints at this time. Using urinal independently. Using call gleason appropriately.
[2024-04-16] MEDS: HEPARIN 25000 UNITS/250 ML IV (04:23)
[2024-04-16 05:27] LABS: APTT 81.6 Sec (23.4-35.0)
[2024-04-16 05:50] LABS: Procalcitonin 0.11 ng/ml (0.0-0.25)
[2024-04-16] MEDS: VISBIOME 2 CAP PO (08:18)
[2024-04-16] MEDS: APRESOLINE 25 MG PO ×3 (08:18→22:37)
[2024-04-16] MEDS: ZYLOPRIM 300 MG PO (08:18)
[2024-04-16] MEDS: LASIX 80 MG PO (08:19)
[2024-04-16] MEDS: VITAMIN D3 (cholecalciferol) 25 MCG PO ×2 (08:20→19:39)
[2024-04-16] MEDS: TYLENOL 650 MG PO (08:37)
[2024-04-16] MEDS: NOVOLOG FLEXPEN 8 UNITS SC ×3 (08:38→18:05)
[2024-04-16] MEDS: NOVOLOG FLEXPEN-MODERATE RESISTANCE SC (08:39)
[2024-04-16 08:49] LABS: Glucose - Point of Care 124 mg/dl (70-99)
--- NOTE | 2024-04-16 10:00 | PN.CDI ---
CDI
- -
CDI:
Physician Documentation Request
Admit Date: 04/13/24 21:45
Dear Doctor Aishwarya,
Patient admitted for pulmonary embolism.
04/[address]: 'Right lower lobe and right upper lobe pulmonary emboli as described above. Moderate clot burden. Findings suggesting moderate right heart strain.'
04/14 Echo Report: 'Flattened septum in systole and diastole consistent with RV pressure and volume overload.'
04/15 Hospitalist PN: 'Sub-Massive Right Middle and Lower Lobe Pulmonary Embolism'
Based on the above, could you clarify in the progress notes, the appropriate diagnosis, if significant, that supports the above abnormalities and additional evaluation, monitoring and/or treatment rendered:
Pulmonary embolism with acute cor pulmonale
Pulmonary embolism without acute cor pulmonale
Other
Use of terms such as suspected, likely, concern for, or probable (associated with a specific diagnosis that is being evaluated, monitored, or treated as if it exists) are acceptable and can be coded in the inpatient setting, when documented at the
time of discharge.
Thank you,
Chelsea Roberts RN, BSN
CDI Specialist
Available via [place] text
Please use your independent medical judgment in providing your response.
[2024-04-16] MEDS: ELIQUIS 10 MG PO ×2 (12:12→19:39)
[2024-04-16 12:38] LABS: Glucose - Point of Care 189 mg/dl (70-99)
[2024-04-16] MEDS: NOVOLOG FLEXPEN-MODERATE RESISTANCE 1 UNITS SC ×2 (12:48→18:05)
--- NOTE | 2024-04-16 13:40 | W.PN.PUL3 ---
Today's Communication / Plan
-
Transition to Eliquis today
Case management consultation to assure her Eliquis is affordable
Stop Abx
CPAP with sleep
No additional pulmonary recommendations at this time. Pt already follows with us in the [facility] office (last office visit on 03/12/2024 with RADHA Araujo), and we will arrange for follow up in 4-6 weeks.
Pulmonary service will now sign off. Please reconsult if there are any additional questions/concerns, or if patient's respiratory status deteriorates.
Assessment
-
Assessment:
68-year-old morbidly obese M with PMHx of severe LAKE on CPAP, Hx of PE (Dx 2015 s/p Tx with xarelto), DM type II, Hx of factor V Leiden (heterozygous), CAD and carotid artery stenosis who p/w R-sided flank pain since evening of 04/08/2024. His pain
worsened and spread to his back and was a/w SOB. He was referred here by his PCP. Pt admits to being more sedentary as of late due to the heat. He was febrile in the ER to 101.1F, tachy to 112bpm, BP 105/65, and SpO2 94% on RA. Labs showed
leukocytosis to 11.4, Hb 13.8, lactate 2.4, negative troponin x1, BNP 1450 (709 on 01/03/2024), UA negative for UTI and covid-19 antigen negative. CTA chest showed an acute PE in RUL + RLL with moderate clot burden and RV strain. Lower extremity
duplex (+) for LLE DVT. Started on heparin gtt in the ER and given 1L IVF of NS 0.9%. He has required 2L/min NC, and was admitted to hospitalist service. Pulmonary consulted for additional recommendations.
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
hernia, and vitamin D deficiency
Impression:
#Acute submassive PE involving RUL/RLL with moderate clot burden and RV strain
#Acute respiratory failure with hypoxia due to above
#LLE non-occlusive DVT involving the popliteal vein + PT vein
#DM type II
#Severe LAKE on CPAP
#CAD
#Carotid artery stenosis
#Hx of DVT/PE
#Hx of factor V Leiden (heterozygous)
Plan:
- Transition today to NOAC, preferably Eliquis
- Case management consult to assist with affordability of Eliquis
- Check transthoracic echo to assess right-sided pressures and RV systolic function --> shows dilated, hypocontractile RV with mild pHTN, dilated aortic root and RV pressure and volume overload
- Maintain SpO2 >90-94% with supplemental O2 - wean as tolerated with ambulatory pulse oximetry prior to discharge
- Incentive spirometer encouraged
- Outpatient hematology evaluation for hypercoagulable workup and assistance with duration of AC treatment
- Repeat TTE in ~6 weeks
- Continue CPAP with sleep
- Empiric Abx with rocephin + zithromax; if blood Cx remain negative x 48 hrs and he remains afebrile with no leukocytosis, would stop Abx
- Procal: 0.11 --> would stop ABx
- Replete electrolytes with K>4, Mg>2
- Maintain euglycemia with goal BG >100 and <180
- prn nebulized bronchodilators
- PT/OT
- Pain control
- DVT ppx: Eliquis
Patient is continuing to improve, is on room air breathing comfortably and is being transitioned to NOAC. No additional pulmonary recommendations at this time. Pt already follows with us in the [facility] office (last office visit on 03/12/2024 with Jocelyn
RADHA Rabago), and we will arrange for follow up in 4-6 weeks.
Pulmonary service will now sign off. Thank you for allowing us to be involved in the care of this patient. Please reconsult if there are any additional questions/concerns, or if patient's respiratory status deteriorates.
Total time spent today was 35 minutes for this encounter. Time includes reviewing laboratory test/imaging results, reviewing pertinent medical records, obtaining and reviewing medical history, performing an appropriate exam, ordering medications,
tests and procedures. Time also includes documentation of this encounter, coordinating patient care and communicating with other healthcare professionals. Total time does not include separately billed tests performed on this date of service.
Data:
CTA Chest 04-13-2024:
Right lower lobe and right upper lobe pulmonary emboli as described above. Moderate clot burden. Findings suggesting moderate right heart strain.
Small right pleural effusion.
Possible mild right lower lobe pneumonia versus atelectasis.
Mild left lower lobe atelectasis versus scarring.
Bilateral lower extremity venous duplex 04-13-2024:
No evidence of DVT of the right lower extremity.
DVT of the left leg at the level in the the knee extending into the calf.
TTE 04-14-2024:
Technically difficult study - Definity used.
Left ventricle is mildly dilated. Mild concentric left ventricular hypertrophy.
Normal left ventricular systolic function. Flattened septum in systole and
diastole consistent with RV pressure and volume overload. Left ventricular
ejection fraction is 55-60%.
Dilated, hypocontractile right ventricle.
Mild tricuspid regurgitation. Estimated pulmonary artery pressure of 33 mmHg.
The IVC is severely dilated.
Dilated aortic root.
No prior study available for comparison.
Outpatient [facility] Data:
Sleep Study:
������ Findings:�HST 08/18/15: ARMIDA 60, O2 nael 71.3%.�
PFT:
�� �12/19/23- FVC 4.65 or 90%, FEV1 3.56 or 92%, Ratio 77. TLC 7.54 or 95%. DLCO 25.86 or 83%.
��������-
��������03/12/24- FVC 4.59 pr 89%, FEV1 3.44 or 90%, ratio 75. TLC 6.88 or87%, DLCO 31.90 or 103%..
Subjective Data
-
Date of Service:
Date of Service: April 16, 2024
Chief Complaint: Pulmonary Follow Up
Subjective:
Patient seen today at bedside. No issues overnight. Heart rate 75, BP 152/92, SpO2 91% on room air. He wore his CPAP overnight at 10 cmH2O bled with 1 L/min. He denies chest pain, abdominal pain, nausea, fevers, chills.
Review of Systems
General: Other (Negative unless mentioned above)
Objective Data
Data Reviewed
Vital Signs / I&O / Oxygen:
Vital Signs
Temp Pulse Resp BP Pulse Ox
97.6 F 77 16 165/90 95
04/16/24 11:20 04/16/24 08:18 04/16/24 06:00 04/16/24 08:19 04/16/24 06:00
Intake and Output
04/15/24 04/16/24 04/17/24
06:59 06:59 06:59
Intake Total 300 / 300
Output Total 1675 / 1675 2520 / 2520 150 / 150
Balance -1375 / -1375 -2520 / -2520 -150 / -150
SaO2 95
Nasal Cannula flow liters per 2
minute
Physical Exam
General: Respiratory Distress (negative), Comfortable and Other (morbidly obese)
HEENT: Normocephalic, Anicteric and Other (thick neck)
Cardiovascular: S1-S2 and Peripheral Edema (Trace LE edema)
Respiratory: Clear, Wheeze (negative), Crackles (negative), Rhonchi (negative) and Non-Labored Respirations
GI: Soft, Distended (abdominal obesity), Non Tender and Normal Bowel Sounds
Neurology: Awake, Alert and Tremors (negative)
Skin: Warm, Dry and Jaundice (negative)
Labs/Micro/Reports
Lab Data
04/15/24 05:06
04/15/24 05:06
Laboratory Results
04/15/24 04/16/24
18:13 04:54
APTT 85.4 H 81.6 H
[2024-04-16] MEDS: APRESOLINE 50 MG PO ×2 (17:12→22:37)
[2024-04-16 17:28] LABS: Glucose - Point of Care 184 mg/dl (70-99)
--- NOTE | 2024-04-16 18:22 | W.PN.HOSP.TC ---
Today's Communication/Plan
-
Transition off IV heparin to Eliquis
Increase activity
Home O2 assessment.
Assessment / Plan
Assessment / Plan
Impression:
Acute submassive pulmonary embolism.
Left lower extremity DVT.
Prior history of DVT PE with factor V Leyden mutation (heterozygous) treated with anticoagulation/Xarelto. Not on anticoagulation prior to presentation.
Acute hypoxic respiratory failure secondary to PE.
Obesity with BMI of 47
Sedentary lifestyle
Other conditions include
Type 2 diabetes
Severe obstructive sleep apnea on CPAP
CAD
Carotid artery stenosis.
Plan
Sub-Massive Right Middle and Lower Lobe Pulmonary Embolism
Acute left lower extremity DVT in the left popliteal and posterior tibial�nonocclusive
Factor V Leyden with hx of DVT/PE-off xarelto (Was on it for 1 year)
-PESI Class IV, High Risk: 4.0-11.4% 30-day mortality in this group. (M, Hx of HF and hypotension on admit)
Echocardiogram LVEF 55-60%. Dilated, hypocontractile right ventricle. Mild TR with pulmonary artery pressure 38 mmHg. IVC severely dilated. Dilated aortic root.
Continue oxygen supplementation with attempt to wean off
Transition off IV heparin to Eliquis.
Initial concern for pneumonia, community-acquired.
Right lower lobe consolidation most likely secondary to atelectasis
Initially on antibiotics ceftriaxone/Zithromax. Will hold further antibiotics and monitor closely.
Acute hypoxic respiratory insufficiency likely multifactorial due to pneumonia and/or PE
-Wean oxygen as tolerated
-Other plan as above
Obstructive sleep apnea
Continue CPAP
Chronic Diastolic Heart Failure
-Hold Spironolactone, Entresto
-restart farxiga, hydralazine and Lasix
-Monitor Is&Os and Daily Weights
Essential Hypertension
-Restart hydralazine and Lasix
-hold labetalol in the setting of submassive PE. Also avoid hypotension and restart BP meds slowly.
Hyperlipidemia
-Continue atorvastatin
Diabetes Mellitus, Type II
-Hold metformin post CT scan with IV dye
-Continue Lantus and Novolog
-A1C 7.7
-Monitor sugars and continue coverage insulin
Morbid Obesity
-Affects all aspects of care
Code Status: Full Code
Anticipated Discharge: 24 - 48 hours
Subjective/Interval History
-
Date of Service: April 16, 2024
Objective Data
-
Vital Signs:
Vital Signs
Temp Pulse Resp BP Pulse Ox
97.5 F 78 20 152/92 94
04/16/24 15:13 04/16/24 14:00 04/16/24 14:00 04/16/24 17:12 04/16/24 14:00
I&O
04/15/24 04/16/24 04/17/24
06:59 06:59 06:59
Intake Total 300 / 300
Output Total 1675 / 1675 2520 / 2520 150 / 150
Balance -1375 / -1375 -2520 / -2520 -150 / -150
Physical Exam
-
General: Well Developed and No Apparent Distress
HEENT: Normocephalic, Atraumatic and Moist Mucous Membranes
Respiratory: Clear to Auscultation
Cardiac: Regular Rhythm and S1/S2; Negative Murmur, Rub or Gallop
GI: Soft, Nontender, Nondistended and Normal Bowel Sounds; Negative Organomegaly
Rectal: Deferred by Provider
Musculoskeletal: No Clubbing, No Cyanosis and No Edema
Skin: Negative Rash
Neuro: Nonfocal/Grossly Intact
--- NOTE | 2024-04-16 19:15 | PTCARENOTE ---
report receieved. aaox3. nsr. lungs dimished and dunham. pulse ox >92% on ra. will monitor.
[2024-04-16 21:29] LABS: Glucose - Point of Care 153 mg/dl (70-99)
[2024-04-16] MEDS: FARXIGA 10 MG PO (22:37)
[2024-04-16] MEDS: LANTUS 0.25 UNITS SC (22:37)
[2024-04-16] MEDS: LIPITOR 40 MG PO (22:43)
[2024-04-17] VITALS (12 sets, daily range): BP systolic 126–170; BP diastolic 83–120; PULSE 86; O2SAT 93; BMI 46.7
[2024-04-17] MEDS: TYLENOL 650 MG PO ×2 (05:02→10:31)
[2024-04-17 05:06] LABS: Hematocrit 43.5 % (39.0-52.0); Hemoglobin 14.3 g/dL (13.0-18.0); Mean Corp Hgb Conc. 32.9 g/dL (33.0-37.0); Mean Corpuscular Volume 91.2 fL (80.0-94.0); Mean Platelet Volume 10.3 fL (7.4-10.4); Platelet Count 246 10^3/uL (130-400); Red Blood Cell Count 4.77 10^6/uL (4.70-6.10); Red Cell Dist. Width 14.2 % (11.5-14.5); White Blood Cell Count 8.4 10^3/uL (4.8-10.8)
[2024-04-17 07:41] LABS: Glucose - Point of Care 156 mg/dl (70-99)
[2024-04-17] MEDS: ELIQUIS 10 MG PO (08:11)
[2024-04-17] MEDS: LASIX 80 MG PO (08:12)
[2024-04-17] MEDS: VISBIOME 2 CAP PO (08:13)
[2024-04-17] MEDS: APRESOLINE 25 MG PO (08:13)
[2024-04-17] MEDS: ZYLOPRIM 300 MG PO (08:13)
[2024-04-17] MEDS: VITAMIN D3 (cholecalciferol) 25 MCG PO (08:13)
[2024-04-17] MEDS: NOVOLOG FLEXPEN 8 UNITS SC ×2 (08:17→12:16)
[2024-04-17] MEDS: NOVOLOG FLEXPEN-MODERATE RESISTANCE 1 UNITS SC ×2 (08:17→12:16)
--- NOTE | 2024-04-17 10:22 | W.DS.TRANS ---
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
-
Discharge Instructions:
Discharge Diagnosis/Procedures Impression:
Acute submassive pulmonary embolism.
Left lower extremity DVT.
Prior history of DVT PE with factor V Leyden
mutation (heterozygous) treated with
anticoagulation/Xarelto. Not on anticoagulation
prior to presentation.
Acute hypoxic respiratory failure secondary to
PE.
Obesity with BMI of 47
Sedentary lifestyle
Other conditions include
Type 2 diabetes
Severe obstructive sleep apnea on CPAP
CAD
Carotid artery stenosis.
Diet Diabetic, Carb Controlled
Instructions:
Stand-Alone Forms:
Changes to Home Medications: Yes
Discharge Medications:
DC Medications w/original date entered in [facility]
aspirin 81 mg tablet,delayed release 81 mg PO DAILY Blood clot prevention/tx 04/07/18
atorvastatin 40 mg tablet 40 mg PO HS High cholesterol 04/07/18
furosemide 40 mg tablet 80 mg PO DAILY Fluid retention/Swelling 04/07/18
allopurinol 300 mg tablet 300 mg PO DAILY Gout 08/09/23
ascorbic acid (vitamin C) 500 mg tablet (Vitamin C) 500 mg PO DAILY Supplement 08/09/23
hydralazine 50 mg tablet 50 mg PO BID@1600,2200 Blood Pressure 08/09/23
metformin 1,000 mg tablet 1,000 mg PO BID Diabetes 08/09/23
omega 5-nbr-rjx-fish oil 1,200 mg (144 mg-216 mg) capsule (Fish Oil) 1 cap PO BID Supplement 08/09/23
spironolactone 25 mg tablet 25 mg PO DAILY@1600 Heart Disease/Condition 08/09/23
acetaminophen 325 mg tablet 1,300 mg PO DAILYPRN PRN mild pain 01/03/24
cholecalciferol (vitamin D3) 25 mcg (1,000 unit) tablet 25 mcg PO BID Supplement 01/03/24
dapagliflozin propanediol 10 mg tablet (Farxiga) 10 mg PO HS Heart Disease/Condition 01/03/24
dextran 70-hypromellose (PF) 0.1 %-0.3 % eye drops in a dropperette (Artificial Tears (PF)) 2 drp BOTH EYES DAILYPRN PRN allergies 01/03/24
diphenhydramine 25 mg-acetaminophen 500 mg tablet (Tylenol PM Extra Strength) 4 tab PO HS PRN sleep 01/03/24
hydralazine 25 mg tablet 25 mg PO TID@0800,1600,2200 Blood Pressure 01/03/24
insulin aspart U-100 100 unit/mL (3 mL) subcutaneous pen (Novolog FlexPen U-100 Insulin aspart) 0 sliding scale dose SC DIRECTED Diabetes 01/03/24
labetalol 100 mg tablet 50 mg PO BID Blood Pressure 01/03/24
sacubitril 24 mg-valsartan 26 mg tablet (Entresto) 0.5 tab PO BID Heart Disease/Condition 01/03/24
insulin aspart U-100 100 unit/mL (3 mL) subcutaneous pen 8 unit (0.08 mL) SC AC #15 mL 01/04/24
Prebiotic/Probiotic 2 gummy PO DAILY Gastrointestinal Issue 04/13/24
insulin glargine 100 unit/mL (3 mL) subcutaneous pen (Lantus Solostar U-100 Insulin) 25 unit SC HS Diabetes 04/13/24
polyethylene glycol 3350 17 gram oral powder packet (Miralax) 17 g PO DAILYPRN PRN constipation 04/13/24
sennosides 8.6 mg tablet (senna) 17.2 mg PO DAILYPRN PRN constipation 04/13/24
apixaban 5 mg tablet (Eliquis) 10 mg (2 x 5 mg) PO BID #60 tabs 04/17/24
Home Medication Changes
Eliquis started
Pending Results: No
[2024-04-17] MEDS: MIRALAX 17 GRAMS PO (10:31)
--- NOTE | 2024-04-17 10:42 | W.DS.TRANS ---
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
-
Discharge Instructions:
Discharge Diagnosis/Procedures Impression:
Acute submassive pulmonary embolism.
Left lower extremity DVT.
Prior history of DVT PE with factor V Leyden
mutation (heterozygous) treated with
anticoagulation/Xarelto. Not on anticoagulation
prior to presentation.
Acute hypoxic respiratory failure secondary to
PE.
Obesity with BMI of 47
Sedentary lifestyle
Other conditions include
Type 2 diabetes
Severe obstructive sleep apnea on CPAP
CAD
Carotid artery stenosis.
Diet Diabetic, Carb Controlled
Instructions:
Stand-Alone Forms:
Changes to Home Medications: Yes
Discharge Medications:
DC Medications w/original date entered in [facility]
atorvastatin 40 mg tablet 40 mg PO HS High cholesterol 04/07/18
furosemide 40 mg tablet 80 mg PO DAILY Fluid retention/Swelling 04/07/18
allopurinol 300 mg tablet 300 mg PO DAILY Gout 08/09/23
ascorbic acid (vitamin C) 500 mg tablet (Vitamin C) 500 mg PO DAILY Supplement 08/09/23
hydralazine 50 mg tablet 50 mg PO BID@1600,2200 Blood Pressure 08/09/23
metformin 1,000 mg tablet 1,000 mg PO BID Diabetes 08/09/23
omega 2-zhl-hsb-fish oil 1,200 mg (144 mg-216 mg) capsule (Fish Oil) 1 cap PO BID Supplement 08/09/23
spironolactone 25 mg tablet 25 mg PO DAILY@1600 Heart Disease/Condition 08/09/23
acetaminophen 325 mg tablet 1,300 mg PO DAILYPRN PRN mild pain 01/03/24
cholecalciferol (vitamin D3) 25 mcg (1,000 unit) tablet 25 mcg PO BID Supplement 01/03/24
dapagliflozin propanediol 10 mg tablet (Farxiga) 10 mg PO HS Heart Disease/Condition 01/03/24
dextran 70-hypromellose (PF) 0.1 %-0.3 % eye drops in a dropperette (Artificial Tears (PF)) 2 drp BOTH EYES DAILYPRN PRN allergies 01/03/24
diphenhydramine 25 mg-acetaminophen 500 mg tablet (Tylenol PM Extra Strength) 4 tab PO HS PRN sleep 01/03/24
hydralazine 25 mg tablet 25 mg PO TID@0800,1600,2200 Blood Pressure 01/03/24
insulin aspart U-100 100 unit/mL (3 mL) subcutaneous pen (Novolog FlexPen U-100 Insulin aspart) 0 sliding scale dose SC DIRECTED Diabetes 01/03/24
labetalol 100 mg tablet 50 mg PO BID Blood Pressure 01/03/24
sacubitril 24 mg-valsartan 26 mg tablet (Entresto) 0.5 tab PO BID Heart Disease/Condition 01/03/24
insulin aspart U-100 100 unit/mL (3 mL) subcutaneous pen 8 unit (0.08 mL) SC AC #15 mL 01/04/24
Prebiotic/Probiotic 2 gummy PO DAILY Gastrointestinal Issue 04/13/24
insulin glargine 100 unit/mL (3 mL) subcutaneous pen (Lantus Solostar U-100 Insulin) 25 unit SC HS Diabetes 04/13/24
polyethylene glycol 3350 17 gram oral powder packet (Miralax) 17 g PO DAILYPRN PRN constipation 04/13/24
sennosides 8.6 mg tablet (senna) 17.2 mg PO DAILYPRN PRN constipation 04/13/24
apixaban 5 mg tablet (Eliquis) 10 mg (2 x 5 mg) PO BID #60 tabs 04/17/24
Home Medication Changes
Start Eliquis, stop ASA
Pending Results: No
[2024-04-17 12:04] LABS: Glucose - Point of Care 171 mg/dl (70-99)
--- NOTE | 2024-04-17 12:34 | PTCARENOTE ---
Patient is for discharge today, stating that his breathing is better, denying shortness of breath when asked. Pulse ox 94% on room air. Ambulated with PT in hallway using walker. Patient educated about Eliquis, compliance and bleeding risks, patient
verbalized understanding. Sitting in chair eating lunch at this time in good spirits.
--- NOTE | 2024-04-17 14:02 | CM ---
Met with patient who was preparing for discharge. The patient says he feels ready to go home today. He is now asking for VN and chooses [facility]. IMM completed. His brother will provide transport home today.
Spoke with JORD[facility] Ortiz; patient is accepted.
Plan home today with JORDI.
--- NOTE | 2024-04-17 14:10 | CM ---
Home O2 Assessment 04/16/24- home O2 not needed. PT recommends HH.
Met with patient who was preparing for discharge. The patient says he feels ready to go home today. IMM completed.
Patient says he would like more help at home but does not want to pay for caregiver services. Offered VN again and he agrees and chooses [facility].
His brother will provide transport home today.
Spoke with JORDI Ortiz; patient is accepted.
Plan home today with [facility].
== END 2024-04-17 15:21 | disposition home health service (06) | DRG 175 ==
LOC: IMU 21:45
PROVIDERS: Emergency Medicine; Hospitalist; Internal Medicine Critical Care Medicine; Physician Assistant Medical; ADMITTING PHYSICIAN Hospitalist; ATTENDING PHYSICIAN Internal Medicine; EMERGENCY PHYSICIAN Emergency Medicine; FAMILY PHYSICIAN Nurse Practitioner Family; OTHER PHYSICIAN Internal Medicine Critical Care Medicine
PROC: 5A09357 Assistance with Respiratory Ventilation, Less than 24 Consecutive Hours, Continuous Positive Airway Pressure (ICD-10-PCS; 2024-04-14)
DX: I26.99 Other pulmonary embolism without acute cor pulmonale (principal); J18.9 Pneumonia, unspecified organism; J96.01 Acute respiratory failure with hypoxia; D68.51 Activated protein C resistance; I50.32 Chronic diastolic (congestive) heart failure; I82.432 Acute embolism and thrombosis of left popliteal vein; Z68.42 Body mass index [BMI] 45.0-49.9, adult; E78.00 Pure hypercholesterolemia, unspecified; E66.01 Morbid (severe) obesity due to excess calories; I11.0 Hypertensive heart disease with heart failure; K42.9 Umbilical hernia without obstruction or gangrene; I25.10 Atherosclerotic heart disease of native coronary artery without angina pectoris; E11.9 Type 2 diabetes mellitus without complications; G47.33 Obstructive sleep apnea (adult) (pediatric); Z86.73 Personal history of transient ischemic attack (TIA), and cerebral infarction without residual deficits; Z86.711 Personal history of pulmonary embolism; Z87.891 Personal history of nicotine dependence; Z83.3 Family history of diabetes mellitus; Z82.49 Family history of ischemic heart disease and other diseases of the circulatory system; Z86.718 Personal history of other venous thrombosis and embolism; Z11.52 Encounter for screening for COVID-19; Z88.8 Allergy status to other drugs, medicaments and biological substances; Z79.82 Long term (current) use of aspirin; Z79.84 Long term (current) use of oral hypoglycemic drugs; Z79.4 Long term (current) use of insulin
CPT/HCPCS: 71275; 80048; 81003; 82962; 83036; 83605; 83880; 84145; 84484; 85025; 85027; 85730; 87811; 93005; 93306; 93970; 94660; 96361; 96374; 96375; 97162; 99291; Q9957; Q9967

== ENCOUNTER → 2024-08-07 10:54 | Outpatient (REF) | payer MEDICARE, OTHER, SELFPAY | LOC: RAD 10:54 | PROVIDERS: ATTENDING PHYSICIAN Nurse Practitioner Adult Health; FAMILY PHYSICIAN Nurse Practitioner Family | DX: I82.492 Acute embolism and thrombosis of other specified deep vein of left lower extremity (principal) | CPT/HCPCS: 93971 ==

== ENCOUNTER 2025-02-11 15:07 | Inpatient (IN) | payer MEDICARE, OTHER, SELFPAY ==
[2025-02-11] VITALS (16 sets, daily range): BP systolic 140–179; BP diastolic 65–84; PULSE 43; BMI 43.9; BMI 43.5
[2025-02-11 11:05] LABS: Urine Albumin 4+ (Neg - Trace); Urine Bilirubin Negative (Negative); Urine Character Bloody (Clear); Urine Color Red; Urine Glucose 3+ (Negative); Urine Ketone Negative (Negative); Urine Leukocyte Negative (Negative); Urine Nitrite Negative (Negative); Urine Occult Blood 4+ (Negative); Urine Specific Gravity 1.015 (<1.030); Urine Urobilinogen Negative (Neg - 1+); Urine pH 6.5 (5.0-9.0)
[2025-02-11 11:24] LABS: Urine Red Blood Cell >100 /HPF (0-2); Urine Squamous Cell 0-2 /LPF (Few); Urine White Cell 0-2 /HPF (0-5)
[2025-02-11 11:44] LABS: % Basophils 0.5 % (0-2); % Eosinophils 1.1 % (0-6); % Immature Granulocytes 0.3 % (0-0.5); % Lymphocytes 12.6 % (20.5-51.1); % Monocytes 7.1 % (1.7-9.3); % Neutrophils 78.4 % (42.2-75.2); Absolute Basophils 0.1 10^3/uL (0-0.2); Absolute Eosinophils 0.1 10^3/uL (0-0.7); Absolute Lymphocytes 1.2 10^3/uL (1.2-3.4); Absolute Monocytes 0.7 10^3/uL (0.1-0.6); Absolute Neutrophils 7.6 10^3/uL (1.4-6.5); Hematocrit 44.2 % (39.0-52.0); Hemoglobin 14.7 g/dL (13.0-18.0); Mean Corp Hgb Conc. 33.3 g/dL (33.0-37.0); Mean Corpuscular Hgb 32.1 pg (27.0-31.0); Mean Corpuscular Volume 96.5 fL (80.0-94.0); Mean Platelet Volume 11.3 fL (7.4-10.4); Nucleated Red Blood Cells % 0 % (-); Platelet Count 176 10^3/uL (130-400); Red Blood Cell Count 4.58 10^6/uL (4.70-6.10); Red Cell Dist. Width 14.6 % (11.5-14.5); White Blood Cell Count 9.6 10^3/uL (4.8-10.8)
[2025-02-11 11:52] LABS: ALT (SGPT) 15 U/L (0-50); AST (SGOT) 17 U/L (17-59); Alkaline Phosphatase 55 U/L (38-126); Blood Urea Nitrogen 29 mg/dl (9-20); Calcium 9.7 mg/dl (8.4-10.2); Carbon Dioxide 25 mmol/L (22-30); Chloride 109 mmol/L (98-107); Estimated Creatinine Clearance 107 ml/min; Glucose 112 mg/dl (70-99); Potassium 4.7 mmol/L (3.5-5.1); Sodium 143 mmol/L (135-145); Total Protein 6.5 g/dl (6.3-8.2); eGFR > 60.00
--- NOTE | 2025-02-11 12:25 | ED.GENMED ---
History of Present Illness
General
Chief Complaint: Urinary Symptoms
Source: patient
Exam Limitations: none
Time Seen by Provider: 02/11/25 10:10
Nursing documentation reviewed up to this point in time: agreed with
History of Present Illness
History of Present Illness:
69-year-old male with past medical history as documented notable for PE on Eliquis who presents to the emergency department for evaluation of hematuria. Patient reports that few days ago he noted some slight dysuria; he has chronic chronic urinary
frequency as he is on furosemide. He says that last night he started to have gross hematuria and it continued this morning. Came to the emergency room for evaluation. He denies any abdominal or flank pain. He denies any fevers or chills. He
denies any other complaints including shortness of breath, dizziness, chest pain. He has not had similar issues in the past.
Past History
Past History
ED Past Medical History: CVA, HTN, Hypercholesterolemia, NIDDM and Other (Factor V Leiden deficiency, obstructive sleep apnea, PE)
ED Past Surgical History: Appendectomy, Tonsilectomy, Urological and Other
Social History
Tobacco: Former smoker
Alcohol: Occasional
Drug: None
Personal:
Living: alone
Employment: Disabled
Family History
Family History: Other (Diabetes, coronary disease, sister with a 'torn aorta'. Brother with diabetes)
Review of Systems
Review of Systems
All Other Systems: ROS reviewed and negative except as documented in HPI and ROS
Constitutional: Denies fever or chills
Respiratory: Denies trouble breathing
Cardiac: Denies chest pain
ABD/GI: Denies abdominal pain or vomiting
: Reports dysuria and bleeding; Denies flank pain
Musculoskeletal: Denies neck pain or back pain
Neurological: Denies headache
Phy Exam
Physical Exam
Physical Exam:
General: Awake, alert; no acute distress
Head: Normocephalic, atraumatic
Eyes: Conjunctiva normal, sclera anicteric
Throat: Airway intact, handling secretions
Neck: Trachea midline, supple without meningismus
Lungs: Breathing comfortably no distress
Heart: Bradycardia with regular rhythm
Abd: Soft, non distended, nontender to deep palpation
: No scrotal swelling, normal circumcised penis with no blood around the meatus
Back: No CVA tenderness
Neuro: No gross deficit
Extremities: Warm and well-perfused
Scores
Heart Failure Risk
Heart Failure Risk Score: Not Applicable
Heart Score for Chest Pain Patients
STEMI patient?: Not applicable
Withdrawal Assessment of Alcohol
Withdrawal Assessment Completed?: Not applicable
Course
Orders/Labs/Results
Orders:
Orders
02/11/25 10:33
Urinalysis Reflex To Culture Urgent
Date Specimen was Collected: 02/11/25
Time Specimen was Collected: 10:28
Urine Microscopic Reflex Cult Urgent
02/11/25 10:53
Bladder Scan- Treatment ONCE
02/11/25 11:16
Complete Blood Count/With Diff Urgent
Comprehensive Metabolic Panel Urgent
02/11/25 13:18
CefTRIAXone [Rocephin] 1,000 mg IV NOW STA
02/11/25 13:30
Electrocardiogram (*1) Urgent
Reason for Study: Bradycardia / Tachycardia
EKG- Treatment ONCE
Abnormal Lab Results
02/11/25 02/11/25
10:33 11:16
RBC 4.58 L 10^6/uL
(4.70-6.10)
MCV 96.5 H fL
(80.0-94.0)
MCH 32.1 H pg
(27.0-31.0)
RDW 14.6 H %
(11.5-14.5)
MPV 11.3 H fL
(7.4-10.4)
Absolute Neuts (auto) 7.6 H 10^3/uL
(1.4-6.5)
Absolute Monos (auto) 0.7 H 10^3/uL
(0.1-0.6)
Neutrophils % 78.4 H %
(42.2-75.2)
Lymphocytes % 12.6 L %
(20.5-51.1)
Chloride 109 H mmol/L
(98-107)
BUN 29 H mg/dl
(9-20)
Glucose 112 H mg/dl
(70-99)
Ur Occult Blood Reflex 4+ A
(Negative)
Urine RBC >100 A /HPF
(0-2)
Urine Glucose 3+ A
(Negative)
Urine Albumin (Reflex) 4+ A
(Neg - Trace)
02/11/25 11:16
02/11/25 11:16
Vital Signs
Initial and Last Documented VS:
Initial Vital Signs
Temp Pulse Resp BP Pulse Ox
36.7 C 54 18 175/75 96
02/11/25 09:12 02/11/25 09:12 02/11/25 09:12 02/11/25 09:12 02/11/25 09:12
Last Documented Vital Signs
Temp Pulse Resp BP Pulse Ox
36.7 C 41 21 157/73 92
02/11/25 09:12 02/11/25 12:30 02/11/25 12:30 02/11/25 12:00 02/11/25 12:30
MDM/Problems Addressed
Differential Diagnosis Includes:
Hematuria: UTI/hemorrhagic cystitis, polyp, AVM, cancer, nephrolithiasis less likely with no pain
MDM/Problems Addressed:
69-year-old male presents for evaluation of hematuria�started with some dysuria and then yesterday started with gross hematuria. He is on Eliquis for history of PE. Vitals and exam as above. Postvoid bladder scan showed greater than 300 cc of
urine retained. Three-way Robertson catheter placed and will initiate manual irrigation and CBI. Labs sent off including CBC and CMP; urinalysis sent off and is grossly bloody.
Labs reviewed: CBC shows no anemia, no leukocytosis, acceptable platelet count. CMP shows normal renal function. Urinalysis positive for blood. After manual irrigation and short period of CBI bag is now essentially completely clear. Clamp CBI
and will reassess.
Robertson catheter now draining only blood-tinged urine slightly pink. No clots. Stable for discharge will treat with antibiotics for presumed UTI given his initial dysuria. Refer to urology for outpatient follow-up for further assessment of
hematuria. Patient feels comfortable with this plan. Spoke about return precautions and all questions were answered.
Prior to discharge she was noted to be increasingly bradycardic with a heart rate in the 40s. EKG performed appears to show signs concerning for complete heart block. Patient is asymptomatic denies dizziness, chest pain, shortness of breath. He
follows with Dr. Swenson through comprehensive cardiology ([facility]). Case discussed with cardiology for consultation.
Chronic conditions affecting care:
PE on Eliquis
Acute Exacerbation and/or Progression of Chronic Illness:
Acutely hypertensive
Acute Exacerbation and/or Progression of Chronic Illness: HTN
*Pulse Oximetry
Patient hypoxic: no
*Critical Care Note
Total Time (30-74mins, 75-104mins- exclusive of procedures): Not Applicable
Data Reviewed
Source: patient and records
ED Attending Note
-
Portions of this chart may have been created with voice recognition software.� Occasional wrong word or��sound alike� substitutions may have occurred due to the inherent limitations of voice recognition software.
Discharge Plan
Departure
Patient Disposition: Home (Routine Discharge)
Date of Disposition: 02/11/25
Time of Disposition: 13:19
Patient with high blood pressure during this ER visit?: Yes
Discharge Problem:
Hematuria, Acute UTI
Instructions: Urinary Tract Infection, Adult (DC), Blood in the Urine (Hematuria), Adult (DC)
Prescriptions:
New
cefdinir 300 mg capsule
300 mg PO BID Qty: 14 0RF
No Action
furosemide 40 MG tablet
80 mg PO DAILY
atorvastatin 40 MG tablet
40 mg PO HS
spironolactone 25 mg Tablet
25 mg PO DAILY@1600
metformin 1,000 mg Tablet
1,000 mg PO BID
allopurinol 300 mg Tablet
300 mg PO DAILY
omega 8-gkf-nxs-fish oil [Fish Oil] 1,200 (144-216) mg Capsule
1 cap PO BID
hydralazine 50 MG tablet
50 mg PO BID@1600,2200
Rx Instructions:
01/03/2024, take with 25 mg for a total of 75 mg.
ascorbic acid (vitamin C) [Vitamin C] 500 MG tablet
500 mg PO DAILY
acetaminophen 325 mg Tablet
1,300 mg PO DAILYPRN PRN (Reason: mild pain)
hydralazine 25 mg Tablet
25 mg PO TID@0800,1600,2200
labetalol 100 mg Tablet
50 mg PO BID
diphenhydramine-acetaminophen [Tylenol PM Extra Strength] 25-500 mg Tablet
4 tab PO HS PRN (Reason: sleep)
insulin aspart U-100 [Novolog FlexPen U-100 Insulin] 100 unit/mL (3 mL) Insulin Pen
0 sliding scale dose SC DIRECTED
Rx Instructions:
01/03/2024, if BS<80 = 0 units; 80-99 = 10 units; 100-149 = 15 units; 150 - 199 = 17 units; 200 - 249 = 19 units; 250 - 299 = 21 units; 300 - 349 = 23 units; 350 - 399 = 25 units; 400+ = 27 units and call MD.
cholecalciferol (vitamin D3) 25 mcg (1,000 unit) Tablet
25 mcg PO BID
Artificial Tears (PF) 0.1-0.3 % Dropperette
2 drp BOTH EYES DAILYPRN PRN (Reason: allergies)
dapagliflozin propanediol [Farxiga] 10 mg Tablet
10 mg PO HS
Entresto 24-26 mg Tablet
0.5 tab PO BID
insulin aspart U-100 100 unit/mL (3 mL) Insulin Pen
8 unit SC AC Qty: 15 0RF
polyethylene glycol 3350 [Miralax] 17 gram Powder In Packet
17 g PO DAILYPRN PRN (Reason: constipation)
Prebiotic/Probiotic
2 gummy PO DAILY
sennosides [senna] 8.6 mg tablet
17.2 mg PO DAILYPRN PRN (Reason: constipation)
insulin glargine [Lantus Solostar U-100 Insulin] 100 unit/mL (3 mL) insulin pen
25 unit SC HS
Eliquis 5 mg Tablet
10 mg PO BID Qty: 60 2RF
Rx Instructions:
10 mg BID for 7 days.
5 mg BID after
Referrals:
Valerie Romo DO [Family Provider] -
Royer Acevedo Jr., MD [Active] - Call in 1-3 days for appt (Urologist)
Activity Restrictions/Additional Instructions:
You should call first thing tomorrow morning to schedule a follow-up appointment with the urologist within a week to have your catheter removed and to have further assessment of your hematuria. You should take your antibiotic as prescribed. If you
have issues with increased bleeding or any other symptoms that are concerning to you please return to the emergency room to be reassessed.
Thank you for visiting the Emergency Department at [facility].
1. Please schedule a follow up appointment as directed. Call first thing tomorrow morning to make an appointment.
2. If indicated, please take your medications as instructed and indicated on discharge paperwork.
3. If any of your symptoms do not improve, or persist, or become more severe within 6-12 hours, please return to the emergency department for further care.
4. Please return to the emergency department if you develop a headache, neck pain/stiffness, fever greater than 100.4F, chest pain, shortness of breath, persistent nausea, vomiting, slurred speech, difficulty walking, numbness/tingling, weakness,
signs of infection or any other symptoms that are worrisome to you.
Please call [phone] if you have any questions.
Interventions
Interventions:
*Risk Screen - Suicide Last Done: 02/11/25 09:12
*General Assessment Last Done: 02/11/25 09:12
*Neglect/Abuse Screening Last Done: 02/11/25 09:12
*ED- Fall Risk Assessment Last Done: 02/11/25 10:27
*ED COVID-19 Vaccine History Last Done: 02/11/25 09:12
ED-Male Genitourinary Assessment Last Done: 02/11/25 10:27
Discharge Date and Time
Print Language: UGANDAN
[2025-02-11] MEDS: ROCEPHIN 1000 MG IV (13:48)
--- NOTE | 2025-02-11 13:52 | CON.CAR ---
Addendum entered and electronically signed by Armando Davis MD 02/11/25 16:10:
Patient seen and examined in the emergency room
Agree with VENKATESH Perdue's notes and assessment
Agree with VENKATESH Perdue's plan
On his Apple Watch he has noted heart rates in the 40s to 50s over the last few months but has not been checking regularly. He has not noticed a significant change in exercise activity or stamina. No syncope or presyncope. His ECG reflects
complete AV block although he has periods of conduction in the emergency room when seen with some Mobitz 1 type II behavior suggesting high-grade AV block or paroxysmal complete heart block.
He also has active hematuria which was the reason why he came to the emergency room. He tells me if he did not have hematuria he would not of come to the emergency room for his heart rate. They have been dialing back his dosing of labetalol
because he is felt unwell. He has an EKG from early January from Dr. Swenson demonstrating Mobitz 1 type II behavior.
Exam:
Three-way Robertson in place with hematuria
BMI of 45 as noted
Chronic venous stasis changes bilateral lower extremity
JVP 6
Cor regular
Lungs diminished but clear bilaterally
Abdomen soft nontender positive bowel sounds
1+ extremity edema but chronic venous stasis changes
PCP: Dr. Armando Mcnulty
Cardiology: Dr. Swenson at [facility] [phone]
Impression:
Admitted with hematuria and bradycardia 02/11/25
Sinus bradycardia and higher grade AV block with possible 2:1
h/o first degree AVB and RBBB
Hematuria
Chronic Eliquis OAC
h/o Factor V Leiden deficiency and h/o DVT and PE 04/2024
Chronic HFpEF
HTN
DM 2
Hyperlipidemia
LAKE on CPAP
Chronic LE edema
Obese, BMI 45
Lexiscan stress test 07/25/22: [facility] study, EF 67%, large fixed defect apical inferior, basal inferior, mid inferior, basal inferior lateral and mid inferior lateral psych
Echo 01/03/22: [facility] study, EF 60%, aortic root 4.7 cm, ascending aorta 4.1 cm
Echo 04/14/24: EF 55-60%, mild concentric left ventricular hypertrophy, flattened septum in systole and diastole consistent with RV pressure and volume overload
Plan:
-He presents with asymptomatic paroxysmal complete heart block although most of his available ECGs demonstrate Mobitz 1 type II periodicity. He came to the emergency room for hematuria and he tells me if he had normal urine and urine stream he
would not have come to the ER today. His outpatient Apple watch would suggest perhaps 1 to 2 months of high-grade AV block which has not been life limiting to date. He has not had syncope or presyncope.
-Will hold outpatient dose of labetalol 50 mg BID
-Follow on tele overnight and if patient demonstrates more complete heart block then will consider for PPM vs outpatient monitoring through his primary psych sales specialist. I did discuss pacemaker implantation in broad strokes with the patient and would
assess rhythm off of labetalol tomorrow morning to assess need for permanent pacing
-Check echo
-Consider outpatient stress test through his primary psych sales specialist.
-Outpatient dose of Eliquis is on hold due to hematuria.
-Continue other cardiac medications and we will follow closely with you. Please maintain telemetry overnight
Original Note:
Consultation
Consultation Request
Date/Time Consultation Requested: 02/11/25
Date/Time Consultation Performed: 02/11/25
Requesting Provider: Dr. Quispe in the ER
Reason for Consultation: Abnormal ECG, bradycardia
Medical History
-
History of Present Illness:
Patient came to [facility] ER today with hematuria and was found to be bradycardic and so cardiology is being consulted. Patient came in with hematuria. He is chronically on Eliquis for h/o Factor V Leidin deficiency and h/o DVT and most recently he had a
PE 04/2024. While on the monitor in the ER the patient was noted to be bradycardic with higher grade AV block. Patient says that he is tired, but this has been going on for months. He also says that he usually wears a FitBit watch and that his HR has
been 48-53 bpm for the last 1-2 months and was previously in the 70-80s. He denies syncope. He never feels lightheaded. No chest pain. He has MANSFIELD that is stable.
PMH:
h/o first degree AVB and RBBB
Chronic Eliquis OAC
h/o Factor V Leiden deficiency and h/o DVT and PE 04/2024
Chronic HFpEF
HTN
DM 2
Hyperlipidemia
LAKE on CPAP
Chronic LE edema
Obese, BMI 45
Past Medical History
Past Medical History: Other (in HPI)
Past Surgical History: Appendectomy, Tonsilectomy and Urological
Social History
Tobacco: Non-Smoker
Alcohol: None
Drug: None
Personal:
Living: With Family
Family History
Family History: Cancer
Allergies / Home Medications
Allergy/AdvReac Type Severity Reaction Status Date / Time
tirzepatide [From [facility]] Allergy Anaphylaxis Verified 02/11/25 09:17
�Medication �Instructions �Recorded �Confirmed �Type
atorvastatin 40 mg tablet 40 mg PO HS High cholesterol 04/07/18 04/13/24 History
furosemide 40 mg tablet 80 mg PO DAILY Fluid 04/07/18 04/13/24 History
retention/Swelling
allopurinol 300 mg tablet 300 mg PO DAILY Gout 08/09/23 04/13/24 History
ascorbic acid (vitamin C) 500 mg 500 mg PO DAILY Supplement 08/09/23 04/13/24 History
tablet (Vitamin C)
hydralazine 50 mg tablet 50 mg PO BID@1600,2200 Blood 08/09/23 04/13/24 History
Pressure
metformin 1,000 mg tablet 1,000 mg PO BID Diabetes 08/09/23 04/13/24 History
omega 2-plz-gyt-fish oil 1,200 mg 1 cap PO BID Supplement 08/09/23 04/13/24 History
(144 mg-216 mg) capsule (Fish Oil)
spironolactone 25 mg tablet 25 mg PO DAILY@1600 Heart 08/09/23 04/13/24 History
Disease/Condition
acetaminophen 325 mg tablet 1,300 mg PO DAILYPRN PRN mild pain 01/03/24 04/13/24 History
cholecalciferol (vitamin D3) 25 25 mcg PO BID Supplement 01/03/24 04/13/24 History
mcg (1,000 unit) tablet
dapagliflozin propanediol 10 mg 10 mg PO HS Heart Disease/Condition 01/03/24 04/13/24 History
tablet (Farxiga)
dextran 70-hypromellose (PF) 0.1 2 drp BOTH EYES DAILYPRN PRN 01/03/24 04/13/24 History
%-0.3 % eye drops in a dropperette allergies
(Artificial Tears (PF))
diphenhydramine 25 4 tab PO HS PRN sleep 01/03/24 04/13/24 History
mg-acetaminophen 500 mg tablet
(Tylenol PM Extra Strength)
hydralazine 25 mg tablet 25 mg PO TID@0800,1600,2200 Blood 01/03/24 04/13/24 History
Pressure
insulin aspart U-100 100 unit/mL 0 sliding scale dose SC 01/03/24 04/13/24 History
(3 mL) subcutaneous pen (Novolog DIRECTED Diabetes
FlexPen U-100 Insulin aspart)
labetalol 100 mg tablet 50 mg PO BID Blood Pressure 01/03/24 04/13/24 History
sacubitril 24 mg-valsartan 26 mg 0.5 tab PO BID Heart 01/03/24 04/13/24 History
tablet (Entresto) Disease/Condition
insulin aspart U-100 100 unit/mL 8 unit (0.08 mL) SC AC #15 mL 01/04/24 04/13/24 Rx
(3 mL) subcutaneous pen
Prebiotic/Probiotic 2 gummy PO DAILY Gastrointestinal 04/13/24 04/13/24 History
Issue
insulin glargine 100 unit/mL (3 25 unit SC HS Diabetes 04/13/24 04/13/24 History
mL) subcutaneous pen (Lantus
Solostar U-100 Insulin)
polyethylene glycol 3350 17 gram 17 g PO DAILYPRN PRN constipation 04/13/24 04/13/24 History
oral powder packet (Miralax)
sennosides 8.6 mg tablet (senna) 17.2 mg PO DAILYPRN PRN 04/13/24 04/13/24 History
constipation
apixaban 5 mg tablet (Eliquis) 10 mg (2 x 5 mg) PO BID #60 tabs 04/17/24 Rx
cefdinir 300 mg capsule 300 mg PO BID #14 caps 02/11/25 Rx
Review of Systems
-
History Source: Patient
All other systems: Negative unless noted
Physical Exam
Vital Signs
Temp Pulse Resp BP Pulse Ox
98.1 F 42 13 150/69 96
02/11/25 09:12 02/11/25 13:45 02/11/25 13:45 02/11/25 13:00 02/11/25 13:45
GEN: NAD. AAOx3
HEENT: EOMI, MMM
LUNGS: RA. CTA B/L, no wheeze
CV: Sinus bradycardia on tele. Reg, S1/S2, no murmur
ABD: +umbilical hernia, NT, distended and obese
EXT: +1 nonpitting B/L LE edema, chronic venous stasis changes
NEURO: Gross non-focal
SKIN: No rash
: +Robertson catheter draining fruit punch colored urine
Lab Results
02/11/25 11:16
02/11/25 11:16
Impression / Plan
-
PCP: Dr. Armando Mcnulty
Cardiology: Dr. Swenson at [facility] [phone]
Impression:
Admitted with hematuria and bradycardia 02/11/25
Sinus bradycardia and higher grade AV block with possible 2:1
h/o first degree AVB and RBBB
Hematuria
Chronic Eliquis OAC
h/o Factor V Leiden deficiency and h/o DVT and PE 04/2024
Chronic HFpEF
HTN
DM 2
Hyperlipidemia
LAKE on CPAP
Chronic LE edema
Obese, BMI 45
Lexiscan stress test 07/25/22: [facility] study, EF 67%, large fixed defect apical inferior, basal inferior, mid inferior, basal inferior lateral and mid inferior lateral psych
Echo 01/03/22: [facility] study, EF 60%, aortic root 4.7 cm, ascending aorta 4.1 cm
Echo 04/14/24: EF 55-60%, mild concentric left ventricular hypertrophy, flattened septum in systole and diastole consistent with RV pressure and volume overload
Plan:
-Patient came to [facility] ER today with hematuria and was found to be bradycardic and so cardiology is being consulted. Patient came in with hematuria. He is chronically on Eliquis for h/o Factor V Leidin deficiency and h/o DVT and most recently he had
a PE 04/2024. While on the monitor in the ER the patient was noted to be bradycardic with higher grade AV block. Patient says that he is tired, but this has been going on for months. He also says that he usually wears a FitBit watch and that his HR
has been 48-53 bpm for the last 1-2 months and was previously in the 70-80s. He denies syncope. He never feels lightheaded. No chest pain. He has MANSFIELD that is stable.
-ECG reviewed by me is possible 2:1 AVB. Older ECGs from 2023 reviewed and patient with previous RBBB and first degree AV block.
-Called patient's primary psych sales specialist urgently and they kindly reviewed patient's chart with me over the phone and then urgently faxed records.
-Patient with newly diagnosed high grade heart block of unknown duration. Patient reports 1-2 months of low HR 48-53 bpm on smart watch, but ECG from primary psych sales specialist 01/08/25 is SR with RBBB and first degree AVB.
-Will hold outpatient dose of labetalol 50 mg BID
-Follow on tele overnight and if patient demonstrates more complete heart block then will consider for PPM vs outpatient monitoring through his primary psych sales specialist.
-Patient is not taking any other AV lena blockers.
-Check echo
-Consider outpatient stress test through his primary psych sales specialist.
-Outpatient dose of Eliquis is on hold due to hematuria.
-Patient chronic HFpEF and was taking Farxiga 10 mg daily, Lasix 80 mg daily, Entresto 24/26 mg 1/2 tablet twice daily and spironolactone 50 mg daily prior to admission, but interestingly the beta-aden he was on was labetalol. As noted labetalol
should be held, but other medications can be continued.
- Patient was also taking hydralazine 75 mg a.m., 50 mg at noon and 75 mg p.m. daily
--- NOTE | 2025-02-11 14:16 | HPS.HSE ---
Family Physician
-
Family Physician: Valerie Romo
Chief Complaint
-
hematuria.
History of Present Illness
69-year-old male with past medical history as documented notable for PE on Eliquis, type 2 diabetes, venous insufficiency, hyperlipidemia, obstructive sleep apnea, hypertension, factor V Leyden, neuropathy, iron deficiency anemia, gout, heart
failure presented with hematuria since last night. Patient stated dysuria, burning with urination and urinary frequency since Saturday night. Denied any lower abdominal, flank pain. Denied fever, chills, patient syncope. Patient denied nausea,
vomiting or diarrhea. Patient stated his heart rate was running 48-53 on his previous bandage for 1 or 2 months.
Upon arrival, Robertson cath placed. Urine cleared with CBI still with pinkish tinged urine. he was noted bradycardic, for which patient will be admitted for further management.
Medical History
Past Medical History
Past Medical History: Reports Other
Additional Past Medical History:
CVA, hypertension, hyperlipidemia, NIDDM, factor failure and deficiency, obstructive sleep apnea, PE
Past Surgical History: Reports Other
Additional Past Surgical History:
Appendectomy tonsillectomy, testicle surgery, hernia repair
Social History
Tobacco: Non-smoker
Alcohol: Occasional
Drug: None
Personal: Single
Living: With Family
Family History
Family History: Not pertinent
Allergies / Home Medications
Allergies reflects when Allergies were last updated in [facility].
Home Medications with original date entered in [facility]
Allergy/Medication List:
Allergies
Allergy/AdvReac Type Severity Reaction Status Date / Time
tirzepatide [From Cole] Allergy Anaphylaxis Verified 02/11/25 09:17
Home Medications
atorvastatin 40 mg tablet 40 mg PO HS High cholesterol 04/07/18
furosemide 40 mg tablet 80 mg PO DAILY Fluid retention/Swelling 04/07/18
allopurinol 300 mg tablet 300 mg PO DAILY Gout 08/09/23
ascorbic acid (vitamin C) 500 mg tablet (Vitamin C) 500 mg PO DAILY Supplement 08/09/23
hydralazine 50 mg tablet 50 mg PO BID@1600,2200 Blood Pressure 08/09/23
metformin 1,000 mg tablet 1,000 mg PO BID Diabetes 08/09/23
omega 1-puy-zxy-fish oil 1,200 mg (144 mg-216 mg) capsule (Fish Oil) 1 cap PO BID Supplement 08/09/23
spironolactone 25 mg tablet 50 mg PO NOON Heart Disease/Condition 08/09/23
cholecalciferol (vitamin D3) 25 mcg (1,000 unit) tablet 25 mcg PO BID Supplement 01/03/24
dapagliflozin propanediol 10 mg tablet (Farxiga) 10 mg PO HS Heart Disease/Condition 01/03/24
diphenhydramine 25 mg-acetaminophen 500 mg tablet (Tylenol PM Extra Strength) 4 tab PO HSPRN PRN sleep 01/03/24
hydralazine 25 mg tablet 25 mg PO TID@0800,1600,2200 Blood Pressure 01/03/24
labetalol 100 mg tablet 50 mg PO BID Blood Pressure 01/03/24
sacubitril 24 mg-valsartan 26 mg tablet (Entresto) 0.5 tab PO BID Heart Disease/Condition 01/03/24
insulin aspart U-100 100 unit/mL (3 mL) subcutaneous pen 8 unit (0.08 mL) SC AC #15 mL 01/04/24
insulin glargine 100 unit/mL (3 mL) subcutaneous pen (Lantus Solostar U-100 Insulin) 25 unit SC HS Diabetes 04/13/24
apixaban 5 mg tablet (Eliquis) 10 mg (2 x 5 mg) PO BID #60 tabs 04/17/24
bromfenac 0.07 % eye drops 1 drp LEFT EYE DAILY 02/11/25
ferrous sulfate 325 mg (65 mg iron) tablet 325 mg PO DAILY 02/11/25
semaglutide 0.25 mg or 0.5 mg (2 mg/3 mL) subcutaneous pen injector (Ozempic) 0.25 mg SC 02/11/25
Review of Systems
-
Constitutional: Reports No Symptoms
EENT: Reports No Symptoms
Respiratory: Reports No Symptoms
Cardiac: Reports No Symptoms
Abdomen/GI: Reports No Symptoms
: Reports Dysuria, Frequency and Other (Hematuria)
Musculoskeletal: Reports No Symptoms
Skin: Reports No Symptoms
Neurological: Reports No Symptoms
Endocrine: Reports No Symptoms
Hematologic/Lymphatic: Reports No Symptoms
Psych: Reports No Symptoms
Physical Exam
Vital Signs
Vital Signs
Temp Pulse Resp BP Pulse Ox
98.1 F 42 13 150/69 96
02/11/25 09:12 02/11/25 13:45 02/11/25 13:45 02/11/25 13:00 02/11/25 13:45
Physical Exam
General: Well Developed, Well Nourished and No Apparent Distress
HEENT: NormoCephalic, Moist mucous membranes and Atraumatic
Respiratory: Clear
Cardiac: Bradycardia; No Murmur or Rub
GI: Soft, Non Tender, Non Distended and Normal Bowel Sounds; No Organomegaly
Rectal: Deferred by Provider
Genito-urinary: Deferred by me and Robertson
Musculoskeletal: No Clubbing, No Cyanosis and No Edema
Skin: No Rash
Neuro: AO x 3 and Nonfocal/grossly intact
Psych: Calm
Laboratory Results
-
02/11/25 11:16
02/11/25 11:16
Laboratory Results
Total Bilirubin 1.0 mg/dl (0.2-1.3) 02/11/25 11:16
AST 17 U/L (17-59) 02/11/25 11:16
ALT 15 U/L (0-50) 02/11/25 11:16
Alkaline Phosphatase 55 U/L (38-126) 02/11/25 11:16
Data Reviewed
-
Lab Data: Labs Reviewed by me
Impression/Plan
-
# Complete heart block
- Heart rate in 30s and 40s
- Cardiology consulted
- Hold labetalol
- Plan for pacemaker tomorrow
# Hematuria secondary to urinary retention
-UA negative
-HGB stable at 14.7
- Improved with CBI, CBI stopped
- At present with pink-tinged
- Continue to monitor
-CBI continued as per urology
-urology consulted
# History of PE/DVT
-History of factor V Leyden
-Hold Eliquis
# Gout
-Allopurinol continued
#Type 2 diabetes
-Aspart 8 units with meals, Lantus 25 units at bedtime
-Hold metformin, Ozempic
Severe obstructive sleep apnea on CPAP
#Obstructive sleep apnea
Continue CPAP
#Chronic Diastolic Heart Failure
-Farxiga, Entresto, continued
-Lasix, spironolactone held
-Monitor Is&Os and Daily Weights
# Iron deficiency anemia
- Ferrous sulfate is continued
#Essential Hypertension
- Hydralazine continued
#Hyperlipidemia
-Continue atorvastatin
#Morbid Obesity
-Affects all aspects of care
#Code Status: Full Code
--- NOTE | 2025-02-11 14:54 | W.PN.UPDATE ---
Update Note
Progress Note Update
This is an addendum to H&P written by LEAD BLENDER Jessica Steinberg
I saw and examined the patient.
The LEAD BLENDER's note was reviewed and I agree with the note.
Comment:
Mr. Candido Greenwood is a 69 yo man with hx PE on Eliquis (04/29), LAKE on CPAP, DM II, HFpEF presents to the ER for evaluation of hematuria. He received CBI in the ER with clearing of urine and plans for outpatient follow up with Urology but was
noted to have complete heart block on EKG.
Triage VS: T 36.7 C, P 54, RR 18, BP 175/75, SpO2 96%
On exam patient is awake, alert, in no distress. + bradycardic, no LE swelling
LABS: WBC 9.6, Hg 14.7, PLT 176, Na 143, K+ 4.7, Cl 109, BUN 29, Cr 1.1, Glucose 112, liver enzymes WNL
UA with 0-2 WBC
EKG: CHB, rate 45
Complete Heart Block
-admit to IVU
-seen by Cardiology in the ER
-hold BEFORE SCHOOL BABYSITTER Labetalol
-NPO after MN for possible PPM
Hematuria
-s/p CBI in ER, will continue on admission
-hold BEFORE SCHOOL BABYSITTER Eliquis
-formal Urology consutl
Hx PE 04/2024
-hold Eliquis in setting of Hematuria, resume when OK by Urology
Essential HTN
-patient hypertensive in ER, SBP 160's
-continue Hydralazine, Entresto with hold parameters
HFpEF, chronic
-*hold diuretics for now while NPO
IDDM
-on Lantus 25 units qhs at home; ordered for 10 units here, adjust as needed
-hold Farxiga while nPO
-hold BEFORE SCHOOL BABYSITTER Metformin
DVT PPx SCD
FULL CODE
76 minutes spent on patient care
[2025-02-11 15:49] LABS: Magnesium 1.9 mg/dl (1.6-2.3)
[2025-02-11 20:10] LABS: Glucose - Point of Care 114 mg/dl (70-99)
--- NOTE | 2025-02-11 20:26 | PTCARENOTE ---
Pt admitted from ED at around 1999, aaox3, walked from stretcher to bed with stand by assist, CBI still with pinkish tinged urine, no clots noted,no urinary complaints. Bradycardic on the monitor, HR 40-50's, asymptomatic at this time, stating that
at times feels very tired. Dyspneic on exertion, Pox 94 % RA, dim throughout. Large hernia noted mid lower abdomen, denies any discomfort from it, pt states that has had it for years. Blood sugar 114 on admision, lunch box provided. Call gleason within
reach, oriented to room and surroundings.
[2025-02-11] MEDS: APRESOLINE 25 MG PO (21:52)
[2025-02-11] MEDS: APRESOLINE 50 MG PO (21:52)
[2025-02-11] MEDS: LIPITOR 40 MG PO (21:52)
[2025-02-11] MEDS: ENTRESTO 24 MG/26 MG 0.5 TAB PO (21:53)
[2025-02-11] MEDS: NOVOLOG FLEXPEN 8 UNITS SC (21:55)
[2025-02-11] MEDS: NOVOLOG FLEXPEN-LOW RESISTANCE SC (21:55)
[2025-02-11 22:33] LABS: Glucose - Point of Care 140 mg/dl (70-99)
[2025-02-11] MEDS: VITAMIN D3 (cholecalciferol) 25 MCG PO (22:35)
[2025-02-11] MEDS: APRESOLINE PO ×2 (22:36)
[2025-02-11] MEDS: LANTUS 0.1 UNITS SC (23:16)
[2025-02-12] VITALS (7 sets, daily range): BP systolic 119–166; BP diastolic 64–76; BMI 43.3
[2025-02-12 04:43] LABS: Hematocrit 44.2 % (39.0-52.0); Hemoglobin 14.5 g/dL (13.0-18.0); Mean Corp Hgb Conc. 32.8 g/dL (33.0-37.0); Mean Corpuscular Hgb 31.3 pg (27.0-31.0); Mean Corpuscular Volume 95.5 fL (80.0-94.0); Mean Platelet Volume 11.3 fL (7.4-10.4); Platelet Count 170 10^3/uL (130-400); Red Blood Cell Count 4.63 10^6/uL (4.70-6.10); Red Cell Dist. Width 14.4 % (11.5-14.5); White Blood Cell Count 10.2 10^3/uL (4.8-10.8)
[2025-02-12 05:08] LABS: Blood Urea Nitrogen 24 mg/dl (9-20); Calcium 9.6 mg/dl (8.4-10.2); Carbon Dioxide 25 mmol/L (22-30); Chloride 108 mmol/L (98-107); Estimated Creatinine Clearance 115 ml/min; Glucose 109 mg/dl (70-99); Magnesium 1.8 mg/dl (1.6-2.3); Potassium 3.9 mmol/L (3.5-5.1); Sodium 143 mmol/L (135-145); eGFR > 60.00
--- NOTE | 2025-02-12 05:27 | PTCARENOTE ---
Pt HR 40's while asleep with the lowest reaching 36, asymptomatic denies dizziness, chest pain or shortness of breath, CPAP kept on. Prep for possible procedure today completed. Pt remains NPO. Morning AccuCheck done and WNL. CBI on slow drip with
light pink urine output, tolerating well, no complaints offered. Call gleason within reach.
[2025-02-12 05:47] LABS: Glucose - Point of Care 153 mg/dl (70-99)
[2025-02-12 07:50] LABS: Glucose - Point of Care 122 mg/dl (70-99)
[2025-02-12] MEDS: NOVOLOG FLEXPEN-LOW RESISTANCE SC (08:05)
[2025-02-12] MEDS: NOVOLOG FLEXPEN SC (08:08)
--- NOTE | 2025-02-12 09:00 | W.PN.UPDATE ---
Update Note
Progress Note Update
Patient seen this morning - UOP in tubing clear off CBI.
OK to discontinue CBI
OK to proceed w/ cardiac interventions as planned
Advise voiding trial post-procedure when clinically stable and ambulatory
F/U w/ Dr. Salas as outpatient in 1 month - will schedule cystoscopy
D/w patient.
[2025-02-12] MEDS: ENTRESTO 24 MG/26 MG 0.5 TAB PO ×2 (09:25→11:31)
[2025-02-12] MEDS: VITAMIN D3 (cholecalciferol) 25 MCG PO ×2 (09:28→20:15)
[2025-02-12] MEDS: FEOSOL 325 MG PO (09:28)
[2025-02-12] MEDS: ZYLOPRIM 300 MG PO (09:31)
[2025-02-12] MEDS: APRESOLINE 25 MG PO ×3 (09:35→21:53)
--- NOTE | 2025-02-12 09:48 | W.PN.HOSP.TC ---
Today's Communication/Plan
-
see A/P
Assessment / Plan
Assessment / Plan
HPI: 69 yo man with hx PE on Eliquis (04/29), LAKE on CPAP, DM II, HFpEF; presented to the ER for evaluation of hematuria. He received CBI in the ER with clearing of urine and plan for outpatient follow up with Urology, but was noted to have complete
heart block on EKG.
A/P
# Complete Heart Block
hold STORAGE AND BACKUP ADMINISTRATOR Labetalol
Cont tele monitor
Check echo
Card on board, hold off on PPM for now and monitor HR while off labetalol
# Hematuria, resolved s/p CBI in ER
hold STORAGE AND BACKUP ADMINISTRATOR Eliquis
Appreciate Uro input, OK to discontinue CBI, advise voiding trial post-procedure when clinically stable and ambulatory
F/U w/ Dr. Salas as outpatient in 1 month for cystoscopy
# h/o Factor V Leiden deficiency and h/o DVT and PE 04/2024
# Hx PE 04/2024
hold Eliquis currently
# Essential HTN
Continue Hydralazine, Entresto with hold parameters
# HFpEF, chronic
hold diuretics for now while NPO
# IDDM
cont Lantus adjust to 15 units HS today (STORAGE AND BACKUP ADMINISTRATOR 25 units HS);
cont Aspart 5 units AC (STORAGE AND BACKUP ADMINISTRATOR 8 units AC)
cover with ISS
hold Farxiga
hold STORAGE AND BACKUP ADMINISTRATOR Metformin
DVT PPx SCD, consider resuming Eliquis if no plan for PPM
FULL CODE
Anticipated Discharge: 24 - 48 hours
Subjective/Interval History
-
Date of Service: February 12, 2025
Objective Data
-
Labs:
Laboratory Results
02/12/25
04:11
WBC 10.2
Hgb 14.5
Hct 44.2
Plt Count 170
Sodium 143
Potassium 3.9
Chloride 108 H
Carbon Dioxide 25
BUN 24 H
Creatinine 1.0
Glucose 109 H
Calcium 9.6
Vital Signs:
Vital Signs
Temp Pulse Resp BP Pulse Ox
36.5 C 60 22 164/76 93
02/12/25 07:56 02/12/25 08:00 02/12/25 07:56 02/12/25 07:49 02/12/25 07:56
I&O
02/11/25 02/12/25 02/13/25
06:59 06:59 06:59
Intake Total 240 / 240
Output Total 1300 / 1300
Balance -1060 / -1060
Review of Systems
-
History Source: Patient
All other systems: Reviewed and negative
Genitourinary: Reports Other (hematuria has resolved )
Physical Exam
-
General: Well Developed, Well Nourished, No Apparent Distress, Comfortable, Conversant and Morbidly Obese
HEENT: Normocephalic, Atraumatic and Moist Mucous Membranes
Respiratory: Clear to Auscultation and Non Labored Respirations; Negative Accessory Resp Muscle Use
Cardiac: Regular Rhythm, S1/S2 and Bradycardic
GI: Soft, Nontender, Nondistended and Normal Bowel Sounds; Negative Organomegaly
Rectal: Deferred by Provider
Musculoskeletal: No Clubbing, No Cyanosis and No Edema
Skin: Negative Rash
Neuro: Awake and Alert
Psych: Calm and Intact Judgement/Insight
Data Reviewed
-
Labs: Labs Reviewed by me
--- NOTE | 2025-02-12 10:12 | W.PN.CARDCBS ---
Addendum entered and electronically signed by Hema Rausch DO 02/12/25 11:00:
I saw and examined the patient.
The Harnessmaker's note was reviewed and I agree with the note.
Comment:
Patient seen and examined. Patient resting comfortably in bed without any complaints this time. Patient denies any chest pain, shortness breath, palpitations or lightheadedness, dizziness, near-syncope syncope or weakness. Telemetry monitoring
demonstrates sinus rhythm with second-degree type I AV block brief periods of 2: 1 AV block overnight/during sleeping periods. In discussion with patient with the specific moments, patient denies any symptoms. He denies any symptoms at home either
associated with slow heartbeats. Patient states that he is following with his primary outpatient gasket notcher who is currently following this rhythm. There is been no discussion at this time per patient regarding possible pacemaker as outpatient.
GEN: No distress, awake, alert, oriented x3. obese
HEENT: supple, anicteric, mmm, eomi
LUNGS: CTA B/L, no wheezes/rales
CV: Irregular, S1/S2, no murmur
ABD: soft, BS+, NT/ND
EXT: No cyanosis, clubbing. Trace edema of B/L LE
NEURO: Gross non-focal
SKIN: Warm, pink, dry. No rash
: CBI
A/P as below
In review of patient's telemetry monitoring, patient is experiencing episodes of sinus rhythm/sinus bradycardia with second-degree type I (Wenckebach) with brief periods of 2: 1 overnight/during sleeping periods. Patient denies any symptoms during
hospitalization or prior. Patient previously on labetalol which is now currently on hold. Additionally, patient with sinus rhythm up to 90 bpm with one-to-one conduction. In the setting of patient's asymptomatic bradycardia without recurrence of
higher degree AV block/complete heart block by telemetry monitoring, there is no no indication for permanent pacing at this current juncture.
Recommend to hold all AV lena blocking agents
Monitor on telemetry while inpatient
Short follow-up with primary/outpatient gasket notcher; may benefit from early monitor by outpatient gasket notcher as well
Eliquis when okay with urology
Original Note:
Today's Communication / Plan
-
follow rhythm
labetalol stopped
follow urine output. resume OP eliquis when ok per urology
Impression / Plan
-
PCP: Dr. Armando Mcnulty
Cardiology: Dr. Swenson at [facility] [phone]
Impression:
Admitted with hematuria and bradycardia 02/11/25
Sinus bradycardia and higher grade AV block with possible 2:1
h/o first degree AVB and RBBB
Hematuria
Chronic Eliquis OAC
h/o Factor V Leiden deficiency and h/o DVT and PE 04/2024
Chronic HFpEF
HTN
DM 2
Hyperlipidemia
LAKE on CPAP
Chronic LE edema
Obese, BMI 45
Lexiscan stress test 07/25/22: [facility] study, EF 67%, large fixed defect apical inferior, basal inferior, mid inferior, basal inferior lateral and mid inferior lateral psych
Echo 01/03/22: [facility] study, EF 60%, aortic root 4.7 cm, ascending aorta 4.1 cm
Echo 04/14/24: EF 55-60%, mild concentric left ventricular hypertrophy, flattened septum in systole and diastole consistent with RV pressure and volume overload
Plan:
- Hematuria is clearing. Remains on CBI. Hemoglobin stable at 14.5. Urology following
- Patient presented with complete AV block noted on EKG, although asymptomatic and on labetalol. Labetalol has been discontinued and would continue to avoid av lena blocking agents. Did have several runs of 2-1 AV block on review of telemetry
overnight while sleeping, however mostly with Wenckebach this morning and at times HRs increase to 90BPM with 1:1 conduction. Will continue to monitor. He reports noting over the last 1 to 2 months that his heart rates became low on his Fitbit.
EKG from primary gasket notcher 01/08/25 with sinus rhythm with right bundle branch block and first-degree AV block
- We discussed he will likely require pacemaker placement at some point, but no urgent indication for pacemaker placement at present given above
- Echo today
- check TSH
- Eliquis is presently on hold due to hematuria. Will discuss resuming with urology
- Blood pressures are now elevated. He reports several of his medications were recently decreased due to fatigue by his gasket notcher. Will attempt to increase Entresto back to 24/26 mg twice daily in addition to outpatient Lasix 80 mg daily,
spironolactone 50 mg daily, hydralazine 75 mg every morning, 50 mg at noon, 75 mg at bedtime
- Farxiga 10 mg daily continues
- Ambulate patient as able
- OP cardiac follow up with Dr. Swenson
- d/w nursing
PREADMIT DATA:
-Patient came to [facility] ER today with hematuria and was found to be bradycardic and so cardiology is being consulted. Patient came in with hematuria. He is chronically on Eliquis for h/o Factor V Leidin deficiency and h/o DVT and most recently he had
a PE 04/2024. While on the monitor in the ER the patient was noted to be bradycardic with higher grade AV block. Patient says that he is tired, but this has been going on for months. He also says that he usually wears a FitBit watch and that his HR
has been 48-53 bpm for the last 1-2 months and was previously in the 70-80s. He denies syncope. He never feels lightheaded. No chest pain. He has MANSFIELD that is stable.
Progress Note - Folder Stitcher Operator
Subjective
Date of Service: February 12, 2025
no complaints of presyncope, lightheadedness, just fatigue.
Objective
Labs:
02/12/25 04:11
02/12/25 04:11
Labs
Hgb 14.5 g/dL (13.0-18.0) 02/12/25 04:11
Hct 44.2 % (39.0-52.0) 02/12/25 04:11
Plt Count 170 10^3/uL (130-400) 02/12/25 04:11
Sodium 143 mmol/L (135-145) 02/12/25 04:11
Potassium 3.9 mmol/L (3.5-5.1) 02/12/25 04:11
BUN 24 mg/dl (9-20) H 02/12/25 04:11
Creatinine 1.0 mg/dL (0.7-1.3) 02/12/25 04:11
Glucose 109 mg/dl (70-99) H 02/12/25 04:11
Vital Signs and I&O:
Vital Signs
Temp Pulse Resp BP Pulse Ox
97.7 F 52 22 164/76 93
02/12/25 07:56 02/12/25 09:45 02/12/25 07:56 02/12/25 07:49 02/12/25 07:56
Vital Signs
Temp Pulse Resp BP Pulse Ox
97.7 F 52 22 164/76 93
02/12/25 07:56 02/12/25 09:45 02/12/25 07:56 02/12/25 07:49 02/12/25 07:56
Intake & Output
02/10/25 02/11/25 02/12/25 02/13/25
07:59 07:59 07:59 07:59
Intake Total 240 / 240
Output Total 1300 / 1300
Balance -1060 / -1060
Physical Exam
Physical Exam
GEN: No distress, awake, alert, oriented x3. obese
HEENT: supple, anicteric, mmm, eomi
LUNGS: CTA B/L, no wheezes/rales
CV: Irreg, S1/S2, no murmur
ABD: soft, BS+, NT/ND
EXT: No cyanosis, clubbing. Trace edema of B/L LE
NEURO: Gross non-focal
SKIN: Warm, pink, dry. No rash
: CBI
--- NOTE | 2025-02-12 11:23 | CARDSERVLU ---
Echocardiogram with Lumason completed after protocol screening completed. Allergies verified.
Patent IV site: _left FA____
IV site flushed with 0.9% NaCl pre and post administration.
Diluted bolus method utilized to enhance visualization of ventricular serra.
Total volume given: __3.5__ mL
Patient tolerated all procedures well without complications.
[2025-02-12 11:42] LABS: Glucose - Point of Care 151 mg/dl (70-99)
[2025-02-12 12:03] LABS: Glycohemoglobin (HgbA1c) 6.9 % (4.0-5.6)
[2025-02-12] MEDS: NOVOLOG FLEXPEN 5 UNITS SC ×2 (12:36→18:10)
[2025-02-12] MEDS: NOVOLOG FLEXPEN-LOW RESISTANCE 1 UNITS SC ×2 (12:37→18:09)
[2025-02-12 14:07] LABS: TSH Reflex To Free T4 1.99 uIU/ml (0.47-4.68)
--- NOTE | 2025-02-12 14:22 | CM ---
Reviewed chart.. Met with Mr. Greenwood to review discharge plans. He states prior to admission he resides with his brother in a one story home with a ramp to enter. He states prior to admission he was independent with ambulation and adls. He
states he has a walker, single point cane and CPAP Machine at home. He states he has has had [facility] in the past. If he would need [facility] again he has selected [facility]. He states he has a prescription plan with
[facility] and uses [facility] pharmacy. Medical work-up in progress. The discharge plan is to return home with his brother when medically stable.
[2025-02-12] MEDS: NON-FORMULARY ITEM 1 DROP LEFT EYE (15:51)
[2025-02-12] MEDS: APRESOLINE 50 MG PO ×2 (15:58→21:52)
--- NOTE | 2025-02-12 16:17 | PTCARENOTE ---
Pt sitting OOB in chair, tammy well, denies pain, denies SOB.
[2025-02-12 16:20] LABS: Glucose - Point of Care 179 mg/dl (70-99)
[2025-02-12] MEDS: ELIQUIS 5 MG PO (20:15)
[2025-02-12] MEDS: ENTRESTO 24 MG/26 MG 1 TAB PO (20:15)
[2025-02-12] MEDS: LIPITOR 40 MG PO (21:52)
[2025-02-12] MEDS: LANTUS 0.15 UNITS SC (21:58)
[2025-02-12 21:59] LABS: Glucose - Point of Care 153 mg/dl (70-99)
--- NOTE | 2025-02-12 22:48 | PTCARENOTE ---
Assumed care of the pt @ 1900. Pt is AAOx3 SR 1st degree AVB BBB Sahil denies cp bp stable. Pt request Resp. Therapist to come back @ [address] CBI running slow pink tinged urine. Call gleason within reach.
[2025-02-13] VITALS (10 sets, daily range): BP systolic 138–183; BP diastolic 55–79; PULSE 47–70; O2SAT 96; BMI 43.5
[2025-02-13 04:22] LABS: Hematocrit 43.4 % (39.0-52.0); Hemoglobin 14.6 g/dL (13.0-18.0); Mean Corp Hgb Conc. 33.6 g/dL (33.0-37.0); Mean Corpuscular Hgb 31.7 pg (27.0-31.0); Mean Corpuscular Volume 94.3 fL (80.0-94.0); Mean Platelet Volume 11.1 fL (7.4-10.4); Platelet Count 156 10^3/uL (130-400); Red Cell Dist. Width 14.3 % (11.5-14.5); White Blood Cell Count 8.4 10^3/uL (4.8-10.8)
[2025-02-13 04:47] LABS: Blood Urea Nitrogen 24 mg/dl (9-20); Calcium 9.5 mg/dl (8.4-10.2); Carbon Dioxide 24 mmol/L (22-30); Chloride 107 mmol/L (98-107); Estimated Creatinine Clearance > 125 ml/min; Glucose 128 mg/dl (70-99); Sodium 139 mmol/L (135-145); eGFR > 60.00
--- NOTE | 2025-02-13 07:56 | W.PN.CARDCBS ---
Addendum entered and electronically signed by David Sin MD 02/13/25 10:02:
69-year-old man who presented to the emergency department with hematuria and was found to have second-degree AV block, previously known through his Apple Watch and also his morgue technician Dr. Jin's. Required CBI for hematuria.
PMH/PSH: Known second-degree AV block with right bundle branch block, factor V Leiden, history of DVT/PE, history of HFpEF, hypertension, type 2 diabetes, hyperlipidemia, obstructive sleep apnea, body mass index 45
Medications: Allopurinol 300 mg a day, atorvastatin 40 mg a day, iron, hydralazine 50 mg twice daily, and 25 mg 3 times daily, insulin, Entresto, apixaban resumed last night
138/69, pulse 46, respiratory rate 18, afebrile, morbidly obese, pleasant, head neck exam unremarkable, limited lung exam, bradycardic, intermittently irregular neck veins hard to assess, 1+ to 2+ edema, CBI currently turned off, no blood in urine
Hemoglobin 14.6, BUN/creatinine 24 and 0.9, potassium 4.0
Telemetry: Intermittent 2-1 heart block, right bundle branch block
Plan:
Despite high-grade AV block and right bundle branch block, he is overall stable from a cardiac standpoint. Although eventually he will need pacemaker implantation, this determination can be made by his primary morgue technician as an outpatient.
Thus far he seems to be tolerating reinitiation of Eliquis, which is indicated for thromboembolic disease rather than atrial fibrillation.
His HFpEF seems controlled.
From cardiac standpoint, he is okay for discharge. Unclear whether he will need rehab, etc.
We will sign off, please call if problems. [facility] after discharge.
Original Note:
Today's Communication / Plan
-
Labetalol discontinued
Blood pressures improved with increasing Entresto
Back on Eliquis. Monitor for recurrent hematuria
Ambulate patient
Close outpatient follow-up with Dr. Swenson
Impression / Plan
-
PCP: Dr. Armadno Mcnulty
Cardiology: Dr. Swenson at [facility] [phone]
Impression:
Admitted with hematuria and bradycardia 02/11/25
Sinus bradycardia and higher grade AV block with possible 2:1
h/o first degree AVB and RBBB
Hematuria
Chronic Eliquis OAC
h/o Factor V Leiden deficiency and h/o DVT and PE 04/2024
Chronic HFpEF
HTN
DM 2
Hyperlipidemia
LAKE on CPAP
Chronic LE edema
Obese, BMI 45
Lexiscan stress test 07/25/22: [facility] study, EF 67%, large fixed defect apical inferior, basal inferior, mid inferior, basal inferior lateral and mid inferior lateral psych
Echo 01/03/22: [facility] study, EF 60%, aortic root 4.7 cm, ascending aorta 4.1 cm
Echo 04/14/24: EF 55-60%, mild concentric left ventricular hypertrophy, flattened septum in systole and diastole consistent with RV pressure and volume overload
ECHO 02/12/25: EF 65 to 70%, moderate concentric LVH, enlarged RV size with reduced RV function, MAC, mild with peak/mean gradient 20/9 mmHg with SABRINA 1.7 cm�, aortic root and ascending aorta dilatation
Plan:
-off CBI. remains with puentes in place. hgb stable at 14.6. eliquis resumed last evening.
- Patient presented with complete AV block noted on EKG, although asymptomatic and on labetalol. Labetalol has been discontinued and would continue to avoid av lena blocking agents. He reports noting over the last 1 to 2 months that his heart
rates became low on his Fitbit. EKG from primary morgue technician 01/08/25 with sinus rhythm with right bundle branch block and first-degree AV block.
-continues with runs of 2:1 av block noted on tele overnight, however also times with 1:1 conduction with elevated HRs. as asymptomatic, no urgent indication for PPM placement however suspect patient will require eventual device given conduction
disease
-He does have sleep apnea and is compliant with CPAP
-TSH WNL
-echo with results as above
-BP trends improving. continue entresto 24/26mg BID, lasix 80mg daily, spironolactone 50mg daily, hydralazine 75 mg every morning, 50 mg at noon, 75 mg at bedtime
- Farxiga 10 mg daily continues
- Ambulate patient as able
- close OP cardiac follow up with Dr. Swenson
- DC planning
PREADMIT DATA:
-Patient came to [facility] ER today with hematuria and was found to be bradycardic and so cardiology is being consulted. Patient came in with hematuria. He is chronically on Eliquis for h/o Factor V Leidin deficiency and h/o DVT and most recently he had
a PE 04/2024. While on the monitor in the ER the patient was noted to be bradycardic with higher grade AV block. Patient says that he is tired, but this has been going on for months. He also says that he usually wears a FitBit watch and that his HR
has been 48-53 bpm for the last 1-2 months and was previously in the 70-80s. He denies syncope. He never feels lightheaded. No chest pain. He has MANSFIELD that is stable.
Progress Note - Decaler
Subjective
Date of Service: February 13, 2025
Denies chest pain, shortness of breath. Reports when he sits up he gets dizzy for about 2 seconds and then this resolves. He reports this is longstanding
Objective
Labs:
02/13/25 03:32
02/13/25 03:32
Labs
Hgb 14.6 g/dL (13.0-18.0) 02/13/25 03:32
Hct 43.4 % (39.0-52.0) 02/13/25 03:32
Plt Count 156 10^3/uL (130-400) 02/13/25 03:32
Sodium 139 mmol/L (135-145) 02/13/25 03:32
Potassium 4.0 mmol/L (3.5-5.1) 02/13/25 03:32
BUN 24 mg/dl (9-20) H 02/13/25 03:32
Creatinine 0.9 mg/dL (0.7-1.3) 02/13/25 03:32
Glucose 128 mg/dl (70-99) H 02/13/25 03:32
Vital Signs and I&O:
Vital Signs
Temp Pulse Resp BP Pulse Ox
97.9 F 46 18 138/69 94
02/13/25 03:27 02/13/25 03:27 02/13/25 03:27 02/13/25 03:27 02/13/25 03:27
Vital Signs
Temp Pulse Resp BP Pulse Ox
97.9 F 46 18 138/69 94
02/13/25 03:27 02/13/25 03:27 02/13/25 03:27 02/13/25 03:27 02/13/25 03:27
Intake & Output
02/10/25 02/11/25 02/12/25 02/13/25
07:59 07:59 07:59 07:59
Intake Total 240 / 240 400 / 400
Output Total 1300 / 1300 4425 / 4425
Balance -1060 / -1060 -4025 / -4025
Physical Exam
Physical Exam
GEN: No distress, awake, alert, oriented x3. Obese
HEENT: supple, anicteric, mmm, EOMI
LUNGS: CTA bilaterally, no wheezes/rales
CV: Reg and kaitlyn, S1/S2, 2/6 murmur
ABD: soft, BS+, NT/ND
EXT: No cyanosis, clubbing, edema
NEURO: Gross non-focal
SKIN: Warm, pink, dry. No rash
[2025-02-13] MEDS: NOVOLOG FLEXPEN 5 UNITS SC ×3 (08:18→17:08)
[2025-02-13] MEDS: VITAMIN D3 (cholecalciferol) 25 MCG PO ×2 (08:19→21:18)
[2025-02-13] MEDS: ENTRESTO 24 MG/26 MG 1 TAB PO ×2 (08:19→21:19)
[2025-02-13] MEDS: ELIQUIS 5 MG PO ×2 (08:19→21:18)
[2025-02-13] MEDS: NON-FORMULARY ITEM 1 DROP LEFT EYE (08:19)
[2025-02-13] MEDS: FEOSOL 325 MG PO (08:19)
[2025-02-13] MEDS: APRESOLINE 25 MG PO ×3 (08:19→21:28)
[2025-02-13] MEDS: ZYLOPRIM 300 MG PO (08:19)
[2025-02-13 08:24] LABS: Glucose - Point of Care 136 mg/dl (70-99)
[2025-02-13] MEDS: NOVOLOG FLEXPEN-LOW RESISTANCE SC (08:26)
--- NOTE | 2025-02-13 09:00 | PTCARENOTE ---
recieved pt @ 0645. Pt is AAOx4 SR 1st degree AVB BBB on the monitor VSS no cp reported; CBI D/C @ 1130am; ambulating to bathroom with standby assist, using call gleason appropriately; see worklist for detailed assessment
--- NOTE | 2025-02-13 10:34 | W.PN.HOSP.TC ---
Today's Communication/Plan
-
see A/P
Assessment / Plan
Assessment / Plan
HPI: 69 yo man with hx PE on Eliquis (04/29), LAKE on CPAP, DM II, HFpEF; presented to the ER for evaluation of hematuria. He received CBI in the ER with clearing of urine and plan for outpatient follow up with Urology, but was noted to have complete
heart block on EKG.
A/P
# Complete Heart Block
hold SHUTTLE REPAIRER Labetalol
Cont tele monitor
Echo largely unrevealing: EF 65-70%. Normal diastolic function. When compared to prior echocardiogram on 04/14/2024, mild present; no other significant changes.
Card on board, hold off on PPM for now and monitor HR while off labetalol
# Hematuria, resolved s/p CBI in ER
resumed SHUTTLE REPAIRER Eliquis (OK with Uro) and monitor hematuria, so far no further hematuria
Appreciate Uro input, OK to discontinue CBI
DC puentes for voiding trial today 02/13
F/U w/ Dr. Salas as outpatient in 1 month for cystoscopy
# h/o Factor V Leiden deficiency and h/o DVT and PE 04/2024
# Hx PE 04/2024
resumed SHUTTLE REPAIRER Eliquis
# Essential HTN
Continue Hydralazine, Entresto with hold parameters
Add back Aldactone and lasix with hold parameters
# HFpEF, chronic
resume SHUTTLE REPAIRER diuretic
# IDDM
cont Lantus adjusted to 15 units HS (SHUTTLE REPAIRER 25 units HS);
cont Aspart 5 units AC (SHUTTLE REPAIRER 8 units AC)
cover with ISS
hold Farxiga
hold SHUTTLE REPAIRER Metformin
DVT PPx: resumed Eliquis
FULL CODE
DW RN
Anticipated Discharge: Within 24 hours
Subjective/Interval History
-
Date of Service: February 13, 2025
Objective Data
-
Labs:
Laboratory Results
02/13/25
03:32
WBC 8.4
Hgb 14.6
Hct 43.4
Plt Count 156
Sodium 139
Potassium 4.0
Chloride 107
Carbon Dioxide 24
BUN 24 H
Creatinine 0.9
Glucose 128 H
Calcium 9.5
Vital Signs:
Vital Signs
Temp Pulse Resp BP Pulse Ox
36.6 C 46 18 138/69 94
02/13/25 03:27 02/13/25 03:27 02/13/25 03:27 02/13/25 03:27 02/13/25 03:27
I&O
02/12/25 02/13/25 02/14/25
06:59 06:59 06:59
Intake Total 240 / 240 400 / 400
Output Total 1300 / 1300 4425 / 4425
Balance -1060 / -1060 -4025 / -4025
Review of Systems
-
History Source: Patient
All other systems: Reviewed and negative
Genitourinary: Reports Other (hematuria has resolved )
Physical Exam
-
General: Well Developed, Well Nourished, No Apparent Distress, Comfortable, Conversant and Morbidly Obese
HEENT: Normocephalic, Atraumatic and Moist Mucous Membranes
Respiratory: Clear to Auscultation and Non Labored Respirations; Negative Accessory Resp Muscle Use
Cardiac: Regular Rhythm, S1/S2 and Bradycardic
GI: Soft, Nontender, Nondistended and Normal Bowel Sounds; Negative Organomegaly
Rectal: Deferred by Provider
Genito-urinary: Puentes (for TOV today)
Musculoskeletal: No Clubbing, No Cyanosis and No Edema
Skin: Negative Rash
Neuro: Awake and Alert
Psych: Calm and Intact Judgement/Insight
Data Reviewed
-
Labs: Labs Reviewed by me
[2025-02-13] MEDS: LASIX 80 MG PO (11:49)
[2025-02-13] MEDS: ALDACTONE 50 MG PO (11:50)
--- NOTE | 2025-02-13 12:30 | PTCARENOTE ---
PT deloris/SUSAN d/c @ 1130am, see worklist for detailed assessment
[2025-02-13 12:45] LABS: Glucose - Point of Care 167 mg/dl (70-99)
[2025-02-13] MEDS: NOVOLOG FLEXPEN-LOW RESISTANCE 1 UNITS SC ×2 (12:45→17:08)
[2025-02-13 17:07] LABS: Glucose - Point of Care 186 mg/dl (70-99)
[2025-02-13] MEDS: APRESOLINE 50 MG PO ×2 (17:36→21:28)
--- NOTE | 2025-02-13 19:05 | PTCARENOTE ---
no change from previous assessment, see worklist for detailed assessment. PT voided 200 @ 1815; bladder scan shows 70ml residual
[2025-02-13] MEDS: LIPITOR 40 MG PO (21:18)
[2025-02-13 21:19] LABS: Glucose - Point of Care 152 mg/dl (70-99)
[2025-02-13] MEDS: LANTUS 0.15 UNITS SC (21:19)
--- NOTE | 2025-02-13 23:08 | PTCARENOTE ---
Assumed care of the pt @ 1900. Pt is AAOx3 sitting up in chair. SB on the monitor Pt wants to go on CPAP around midnight. POC reviewed with pt verbalized understanding. Call gleason within reach.
[2025-02-14] VITALS (7 sets, daily range): BP systolic 130–174; BP diastolic 68–117; PULSE 49–50; BMI 43.8
[2025-02-14 03:45] LABS: Hemoglobin 14.9 g/dL (13.0-18.0); Mean Corp Hgb Conc. 33.9 g/dL (33.0-37.0); Mean Corpuscular Hgb 31.8 pg (27.0-31.0); Mean Corpuscular Volume 93.8 fL (80.0-94.0); Mean Platelet Volume 11.1 fL (7.4-10.4); Platelet Count 183 10^3/uL (130-400); Red Blood Cell Count 4.69 10^6/uL (4.70-6.10); Red Cell Dist. Width 14.3 % (11.5-14.5)
[2025-02-14 04:09] LABS: Blood Urea Nitrogen 28 mg/dl (9-20); Calcium 9.9 mg/dl (8.4-10.2); Carbon Dioxide 23 mmol/L (22-30); Chloride 105 mmol/L (98-107); Estimated Creatinine Clearance 116 ml/min; Glucose 139 mg/dl (70-99); Potassium 4.3 mmol/L (3.5-5.1); Sodium 140 mmol/L (135-145); eGFR > 60.00
[2025-02-14] MEDS: ENTRESTO 24 MG/26 MG 1 TAB PO (08:08)
[2025-02-14] MEDS: ZYLOPRIM 300 MG PO (08:08)
[2025-02-14] MEDS: VITAMIN D3 (cholecalciferol) 25 MCG PO (08:09)
[2025-02-14] MEDS: LASIX 80 MG PO (08:09)
[2025-02-14] MEDS: FEOSOL 325 MG PO (08:09)
[2025-02-14] MEDS: ELIQUIS 5 MG PO (08:09)
[2025-02-14] MEDS: NON-FORMULARY ITEM 1 DROP LEFT EYE (08:10)
[2025-02-14] MEDS: APRESOLINE 25 MG PO (08:12)
[2025-02-14 08:19] LABS: Glucose - Point of Care 152 mg/dl (70-99)
[2025-02-14] MEDS: NOVOLOG FLEXPEN 5 UNITS SC ×2 (08:28→12:48)
[2025-02-14] MEDS: NOVOLOG FLEXPEN-LOW RESISTANCE 1 UNITS SC (08:28)
--- NOTE | 2025-02-14 09:12 | W.PN.HOSP.TC ---
Addendum entered and electronically signed by Marimar Pate MD 02/14/25 14:31:
total DC time 40 min
Original Note:
Today's Communication/Plan
-
DC home today
Assessment / Plan
Assessment / Plan
HPI: 69 yo man with hx PE on Eliquis (04/29), LAKE on CPAP, DM II, HFpEF; presented to the ER for evaluation of hematuria. He received CBI in the ER with clearing of urine and plan for outpatient follow up with Urology, but was noted to have complete
heart block on EKG.
A/P
# high-grade AV block and right bundle branch block,
hold SALON SUPERVISOR Labetalol
Cont tele monitor
Echo largely unrevealing: EF 65-70%. Normal diastolic function. When compared to prior echocardiogram on 04/14/2024, mild present; no other significant changes.
Card on board, overall stable from a cardiac standpoint, hold off on PPM. Pt can follow up with his commissioner conservation of resources outpatient
# Hematuria, resolved s/p CBI in ER
resumed SALON SUPERVISOR Eliquis (OK with Uro) and monitor hematuria, so far no further hematuria
Appreciate Uro input, OK to discontinue CBI
DC puentes 02/13 for voiding trial
MIGUELITO w/ Dr. Salas as outpatient in 1 month for cystoscopy
# h/o Factor V Leiden deficiency and h/o DVT and PE 04/2024
# Hx PE 04/2024
resumed SALON SUPERVISOR Eliquis
# Essential HTN
Continue Hydralazine, Entresto with hold parameters
Added back Aldactone and lasix with hold parameters
# HFpEF, chronic
resumed SALON SUPERVISOR diuretic
# IDDM
cont Lantus adjusted to 15 units HS (SALON SUPERVISOR 25 units HS);
cont Aspart 5 units AC (SALON SUPERVISOR 8 units AC)
cover with ISS
hold Farxiga, resume outpt
hold SALON SUPERVISOR Metformin, resume outpt
DVT PPx: resumed Eliquis
FULL CODE
DW RN
DW Card
Anticipated Discharge: Today
Subjective/Interval History
-
Date of Service: February 14, 2025
Objective Data
-
Labs:
Laboratory Results
02/14/25
03:09
WBC 9.0
Hgb 14.9
Hct 44.0
Plt Count 183
Sodium 140
Potassium 4.3
Chloride 105
Carbon Dioxide 23
BUN 28 H
Creatinine 1.0
Glucose 139 H
Calcium 9.9
Vital Signs:
Vital Signs
Temp Pulse Resp BP Pulse Ox
36.6 C 44 20 174/70 93
02/14/25 06:51 02/14/25 08:12 02/14/25 06:51 02/14/25 08:12 02/14/25 06:53
I&O
02/13/25 02/14/25 02/15/25
06:59 06:59 06:59
Intake Total 400 / 400
Output Total 4425 / 4425 2084
Balance -4025 / -4025 -2084 /
Review of Systems
-
History Source: Patient
All other systems: Reviewed and negative
Genitourinary: Reports Other (hematuria has resolved )
Physical Exam
-
General: Well Developed, Well Nourished, No Apparent Distress, Comfortable, Conversant and Morbidly Obese
HEENT: Normocephalic, Atraumatic and Moist Mucous Membranes
Respiratory: Clear to Auscultation and Non Labored Respirations; Negative Accessory Resp Muscle Use
Cardiac: Regular Rhythm, S1/S2 and Bradycardic
GI: Soft, Nontender, Nondistended and Normal Bowel Sounds; Negative Organomegaly
Rectal: Deferred by Provider
Genito-urinary: Negative Puentes
Musculoskeletal: No Clubbing, No Cyanosis and No Edema
Skin: Negative Rash
Neuro: Awake and Alert
Psych: Calm and Intact Judgement/Insight
Data Reviewed
-
Labs: Labs Reviewed by me
[2025-02-14 12:39] LABS: Glucose - Point of Care 209 mg/dl (70-99)
[2025-02-14] MEDS: NOVOLOG FLEXPEN-LOW RESISTANCE 2 UNITS SC (12:47)
[2025-02-14] MEDS: ALDACTONE 50 MG PO (12:54)
--- NOTE | 2025-02-14 14:11 | PTCARENOTE ---
~[id number]: Handoff report received from kay GRAF. PT Aox4, Second degree type 2 1:1 block with bigem PVCs on tele, pt asymptomatic with rate 50s at this time, but rate goes up to 80-90s with ambulation. RA, weares CPAP at night, pursed lip
breathing present at rest. Pt denies pain at this time. +1 edema BLE, Palpable pulses. Pt Ax1 to bathroom. All needs met at this time, call gleason within reach.
~4098-1950: patient OOB in chair in stable condition. HR 50s, 2nd degree HB type 2 with bigem PVCs, asymptomatic.
~1400: Discharge paperwork dicussed with patient, all questions answered at this time. Tele box and IVs removed. Pt taken to lobby via wheelchair in stable condition.
--- NOTE | 2025-02-14 14:26 | W.DCSUMMARY ---
Discharge Summary
Discharge Data
Date of Admission: 02/11/25
Date of Discharge: 02/14/25
-
Pending Results: No
Hospital Course
Principal Diagnosis:
high-grade AV block and right bundle branch block
Hematuria, resolved s/p CBI in ER.
Chronic Diagnoses:�
h/o Factor V Leiden deficiency and h/o DVT and PE 04/2024, on Eliquis
Essential hypertension
HFpEF, chronic
Insulin-dependent diabetes
LAKE on CPAP
Consultations:�
Cardiology
Urology
Procedures:�
None
Clinical course:�
This is a 69-year-old male, with past medical history as stated above, who presented with hematuria. In the emergency room, he was also noted to be bradycardic.
Problem 1:
High-grade AV block and right bundle branch block.
His prior to admission labetalol was stopped this admission.
His Echo was largely unrevealing: EF 65-70%. Normal diastolic function. When compared to prior echocardiogram on 04/14/2024, mild present; no other significant changes.
Per housetrailer servicer, given he is overall stable and is largely asymptomatic, there is no indication for pacemaker. The patient can follow-up with his housetrailer servicer outpatient following discharge.
Problem 2:
Hematuria, resolved s/p CBI in ER.
His prior to admission Eliquis was resumed without further hematuria.
He passed voiding trial while in the hospital.
He can follow-up with the urologist Dr. Salas as outpatient in 1 month for cystoscopy.
Problem 3:
IDDM.
His prior to admission Lantus was adjusted to 15 units HS (MEAT AND POULTRY INSPECTOR 25 units HS); and Aspart to 5 units AC (MEAT AND POULTRY INSPECTOR 8 units AC) this admission.
As for the rest of his medical problems, they were stable during his hospital stay.
Discharge Plan
-
Patient Disposition: Home (Routine Discharge)
Discharge Diagnosis/Procedures: high-grade AV block and right bundle branch block;
Resolved hematuria status post CBI ;
History of Factor V Leiden deficiency and history of DVT and PE 04/2024
Condition: Fair
Diet: As tolerated, Low Fat and Low Cholesterol
Activity: As tolerated
Driving Restrictions: As prior to admission
Activity Restrictions/Additional Instructions:
Follow up with Dr. Salas as outpatient in 1 month for cystoscopy
Referrals:
Jose Swenson MD [Non-Admitting Privileges] - in two to three weeks
Valerie Romo DO [Family Provider] - in less than 1 week
Additional Discharge Medication Instructions: Stop Labetalol
Lantus adjusted to 15 units HS (MEAT AND POULTRY INSPECTOR 25 units HS)
Aspart adjusted to 5 units AC (MEAT AND POULTRY INSPECTOR 8 units AC)
Prescriptions:
Continued
furosemide 40 MG tablet
80 mg PO DAILY
atorvastatin 40 MG tablet
40 mg PO HS
spironolactone 25 mg Tablet
50 mg PO NOON
metformin 1,000 mg Tablet
1,000 mg PO BID
allopurinol 300 mg Tablet
300 mg PO DAILY
omega [id number]-fish oil [Fish Oil] 1,200 (144-216) mg Capsule
1 cap PO BID
hydralazine 50 MG tablet
50 mg PO BID@1600,2200
ascorbic acid (vitamin C) [Vitamin C] 500 MG tablet
500 mg PO DAILY
hydralazine 25 mg Tablet
25 mg PO TID@0800,1600,2200
diphenhydramine-acetaminophen [Tylenol PM Extra Strength] 25-500 mg Tablet
4 tab PO HSPRN PRN (Reason: sleep)
cholecalciferol (vitamin D3) 25 mcg (1,000 unit) Tablet
25 mcg PO BID
dapagliflozin propanediol [Farxiga] 10 mg Tablet
10 mg PO HS
Entresto 24-26 mg Tablet
0.5 tab PO BID
ferrous sulfate 325 mg (65 mg iron) Tablet
325 mg PO DAILY
bromfenac 0.07 % Drops
1 drp LEFT EYE DAILY
Ozempic 0.25 mg or 0.5 mg (2 mg/3 mL) Pen Injector
0.25 mg SC TH
Rx Instructions:
for 4 weeks
Eliquis 5 mg tablet
5 mg PO BID
Changed
insulin aspart U-100 100 unit/mL (3 mL) Insulin Pen
5 unit SC AC Qty: 15 0RF
insulin glargine [Lantus Solostar U-100 Insulin] 100 unit/mL (3 mL) insulin pen
15 unit SC HS Qty: 0 0RF
Discontinued
labetalol 100 mg Tablet
50 mg PO BID
Discharge Orders:
Discharge Patient (As Directed); Ordered 02/14/25
Ordered By: Marimar Pate
Care Plan Goals
Care Plan Goals:
Problem: Readiness for enhanced knowledge related to diagnosis and treatment plan
Goal: Understand your diagnosis and treatment plan needs, including medications if applicable.
Instructions: Know your diagnosis, underlying causes and treatment plan options, including medications if applicable. Consult with your health care team to learn about your diagnosis and treatment plan, including medications if applicable.
Discharge Date and Time
Discharge Date/Time: 02/14/25 14:00
Print Language: MALAY
== END 2025-02-14 14:00 | disposition home or self-care (01) | DRG 309 ==
LOC: IVU 15:07
PROVIDERS: Registered Nurse; ADMITTING PHYSICIAN Student in an Organized Health Care Education/Training Program; ATTENDING PHYSICIAN Internal Medicine; EMERGENCY PHYSICIAN Emergency Medicine; FAMILY PHYSICIAN Family Medicine; OTHER PHYSICIAN Internal Medicine Cardiovascular Disease
DX: I44.2 Atrioventricular block, complete (principal); D68.51 Activated protein C resistance; I50.32 Chronic diastolic (congestive) heart failure; Z68.42 Body mass index [BMI] 45.0-49.9, adult; R31.0 Gross hematuria; M10.9 Gout, unspecified; E11.9 Type 2 diabetes mellitus without complications; G47.33 Obstructive sleep apnea (adult) (pediatric); I11.0 Hypertensive heart disease with heart failure; D50.9 Iron deficiency anemia, unspecified; E66.01 Morbid (severe) obesity due to excess calories; Z87.891 Personal history of nicotine dependence; Z79.4 Long term (current) use of insulin; I77.810 Thoracic aortic ectasia; Z79.01 Long term (current) use of anticoagulants; Z79.899 Other long term (current) drug therapy
CPT/HCPCS: 51702; 51798; 72192; 80048; 80053; 81003; 81015; 82962; 83036; 83735; 84443; 85025; 85027; 93005; 93306; 94660; 96374; 97116; 97162; 99285; Q9950

== ENCOUNTER 2025-07-18 17:24 | Emergency (ER) | payer SELFPAY ==
[2025-07-18 17:33] VITALS: BP 135/79
[2025-07-18 17:37] VITALS: BP 135/79; BMI 46.3
[2025-07-18 17:50] LABS: Hematocrit 49.5 % (39.0-52.0); Hemoglobin 16.2 g/dL (13.0-18.0); Mean Corp Hgb Conc. 32.7 g/dL (33.0-37.0); Mean Corpuscular Volume 97.4 fL (80.0-94.0); Nucleated Red Blood Cells % 0 % (-); Platelet Count 178 10^3/uL (130-400); Red Cell Dist. Width 14.4 % (11.5-14.5)
[2025-07-18 18:00] VITALS: BP 138/54
[2025-07-18 18:01] LABS: INR 1.09; PT 14.4 Sec (11.4-14.6)
[2025-07-18 18:02] LABS: APTT 29.2 Sec (23.4-35.0)
[2025-07-18 18:13] LABS: ALT (SGPT) 18 U/L (0-50); AST (SGOT) 16 U/L (17-59); Albumin 4.6 g/dl (3.5-5.0); Alkaline Phosphatase 82 U/L (38-126); Blood Urea Nitrogen 44 mg/dl (9-20); Calcium 10.2 mg/dl (8.4-10.2); Carbon Dioxide 22 mmol/L (22-30); Chloride 110 mmol/L (98-107); Estimated Creatinine Clearance 92 ml/min; Glucose 110 mg/dl (70-99); Magnesium 1.8 mg/dl (1.6-2.3); Potassium 4.5 mmol/L (3.5-5.1); Sodium 143 mmol/L (135-145); Total Protein 7.4 g/dl (6.3-8.2); eGFR 59.47
--- NOTE | 2025-07-18 18:54 | ED.GENMED ---
History of Present Illness
General
Chief Complaint: Fall
Time Seen by Provider: 07/18/25 18:53
Nursing documentation reviewed up to this point in time: agreed with
History of Present Illness
History of Present Illness:
69-year-old male presents the ER for evaluation after he fell in his chair this evening. Patient states that he was working on his computer. He tried to push his chair back but the wheels must of caught causing him to fall backwards. He states
that he struck the back of his head on the windowsill and the window. He also threw his hands outward and struck the back of his left hand on the filing cabinet. He states that once he was on the floor he was unable to get himself independently up
off of the floor prompting his brother with whom he lives to call 911. Patient denies loss of consciousness. No change in vision. No paresthesias to arms or legs. He does report some mild discomfort in his neck. He is right-handed. He denies
any chest pain. No shortness of breath. He does have an extensive prior medical history including hypertension, hyperlipidemia, long-term use of anticoagulant due to prior pulmonary embolism.
Review of Systems
Review of Systems
Allergies reviewed?: Yes
Phy Exam
Physical Exam
Physical Exam:
Patient is awake, alert, obese, appears in no acute distress, head is NCAT, no midline pain on palpation of cervical spine, no limitation active range of motion, PERRL, EOMI mucous membranes moist, conjunctiva pink, heart regular rate and rhythm
without murmurs or ectopy, lungs are clear to auscultation without wheezes rales or rhonchi, no JVD, abdomen is soft and nontender on palpation, large umbilical hernia present which is reducible and not erythematous, extremities without edema, left
hand reveals superficial abrasion over the dorsum with surrounding ecchymosis, no bony pain on palpation of the left hand, full active range of motion bilateral upper extremities without weakness, intact sensation to light touch x 4 extremities,
equal hand grasp, equal interosseous motor function, GCS is 15, superficial linear abrasions present over left upper back
Course
Orders/Labs/Results
Orders:
Orders
07/18/25 17:37
Electrocardiogram (*1) Urgent
Reason for Study: Shortness of Breath
CT Cervical Spine W/o Iv Contr Urgent
Comment:
Reason For Exam: fall with head strike on thinners
CT Head W/o Iv Contrast Urgent
Comment:
Reason For Exam: fall with head strike on thinners
CR Hand - Left Min 3 Views Urgent
Comment:
Reason For Exam: left hand swelling with fall
07/18/25 17:38
EKG- Treatment ONCE
07/18/25 17:42
Complete Blood Count/With Diff Urgent
Comprehensive Metabolic Panel Urgent
Magnesium Urgent
NT-proBNP Urgent
PTT Urgent
Prothrombin Time Urgent
Abnormal Lab Results
07/18/25
17:42
MCV 97.4 H fL
(80.0-94.0)
MCH 31.9 H pg
(27.0-31.0)
MCHC 32.7 L g/dL
(33.0-37.0)
MPV 10.9 H fL
(7.4-10.4)
Absolute Neuts (auto) 7.2 H 10^3/uL
(1.4-6.5)
Absolute Monos (auto) 0.7 H 10^3/uL
(0.1-0.6)
Neutrophils % 75.8 H %
(42.2-75.2)
Lymphocytes % 14.0 L %
(20.5-51.1)
Chloride 110 H mmol/L
(98-107)
BUN 44 H mg/dl
(9-20)
Glucose 110 H mg/dl
(70-99)
AST 16 L U/L
(17-59)
10/12/25 17:42
07/18/25 17:42
No significant lab dyscrasia noted on CBC, CMP
Vital Signs
Initial and Last Documented VS:
Initial Vital Signs
BP
135/79
07/18/25 17:33
Last Documented Vital Signs
Temp Pulse Resp BP Pulse Ox
98.9 F 64 23 150/62 92
07/18/25 17:37 07/18/25 21:00 07/18/25 21:00 07/18/25 21:00 07/18/25 21:00
MDM/Problems Addressed
Differential Diagnosis Includes:
Intracranial hemorrhage, skull fracture, occult cervical spine injury along with other etiologies considered
Chronic conditions affecting care:
PE, heart block, obesity, hypertension, diabetes
*Radiology
Radiology exam reviewed: radiology read reviewed
*Pulse Oximetry
SaO2: 92
Oxygen Mode of Delivery: Room air
Patient hypoxic: no
*EKG
Interpreted by ED Provider?: Yes (I independently viewed interpreted twelve-lead EKG showing Mobitz 2 heart block with left axis deviation, right bundle branch block, rate 61, this is an abnormal tracing, no prior for comparison)
*Building Economist Interpretation
Rate: other (I independently viewed and interpreted monitor showing Mobitz 2 heart block, right bundle branch block)
*Critical Care Note
Total Time (30-74mins, 75-104mins- exclusive of procedures): Not Applicable
Data Reviewed
Review of Other/Old Records Reveals: Progress Notes
Update Note
Update Note:
I reviewed cardiology consultation dated 02/13/2025 from JESSE Wheeler and Dr. Sin. Problem list :admitted with hematuria and bradycardia 02/11/25
Sinus bradycardia and higher grade AV block with possible 2:1
h/o first degree AVB and RBBB
Hematuria
Chronic Eliquis OAC
h/o Factor V Leiden deficiency and h/o DVT and PE 04/2024
Chronic HFpEF
HTN
DM 2
Hyperlipidemia
LAKE on CPAP
Chronic LE edema
Obese, BMI 45
Patient resting comfortably throughout time in the emergency department. Please note that this ED encounter has been placed into the chart of another patient of a different gender and does not contain his prior medical history. I was able to
review his prior medical history and his original patient medical record. He has a known issue with second-degree heart block. He has seen his intelligence director for this. He expressed understanding of need to follow back up with his intelligence director,
although he is hemodynamically stable throughout observation in the ER. I discussed with him very reassuring CT of the head and cervical spine. Patient is able to ambulate with steady gait and no assistance. I discussed with him wound care
instructions. He feels comfortable with plan for discharge and had no questions prior to leaving the department.
ED Attending Note
-
Portions of this chart may have been created with voice recognition software.� Occasional wrong word or��sound alike� substitutions may have occurred due to the inherent limitations of voice recognition software.
Discharge Plan
Departure
Patient Disposition: Home (Routine Discharge)
Date of Disposition: 07/18/25
Time of Disposition: 21:26
Patient with high blood pressure during this ER visit?: Yes
Discharge Problem:
Head injury, Anticoagulant long-term use, Heart block AV second degree, Abrasion, Contusion of dorsum of left hand
Instructions: Wound Care (DC), Head Injury in Adults (DC), Skin Abrasions (DC), BLOOD PRESSURE
Prescriptions:
No Action
simvastatin 10 MG tablet
10 mg PO HS
aspirin [Aspir-Low] 81 MG tablet,delayed release (DR/EC)
81 mg PO HS
escitalopram oxalate 10 MG tablet
10 mg PO HS
metoprolol tartrate 25 MG tablet
25 mg PO HS
hydrocodone-acetaminophen 1 TABLET tablet
1 tab PO Q4HPRN PRN (Reason: pain>4/10) Qty: 10 0RF
Rx Instructions:
take with daily stool softener
Referrals:
Jose Swenson MD [Non-Admitting Privileges, Internal Medicine] - Next open appointment
UNKNOWN - PT DOES,NOT KNOW [Family Provider]
Activity Restrictions/Additional Instructions:
Continue your current medications. Please contact your intelligence director and primary care physician to schedule appointment for reevaluation and further care. Return to the ER for any concerns
Interventions
Interventions:
*Risk Screen - Suicide Last Done: 07/18/25 17:37
*General Assessment Last Done: 07/18/25 17:37
*Neglect/Abuse Screening Last Done: 07/18/25 17:37
*ED- Fall Risk Assessment Last Done: 07/18/25 17:37
*ED COVID-19 Vaccine History Last Done: 07/18/25 17:37
*ED Influenza Vaccine History Last Done: 07/18/25 17:37
*Nursing Disposition Last Done: 07/18/25 21:48
ED-Musculoskeletal Assessment Last Done: 07/18/25 17:37
ED- Neurological Assessment Last Done: 07/18/25 17:37
ED-Skin Assessment Last Done: 07/18/25 17:37
Discharge Date and Time
Discharge Date/Time: 07/18/25 21:48
Print Language: TRINIDADIAN
[2025-07-18 19:11] VITALS: BP 152/70
[2025-07-18 20:00] VITALS: BP 169/68
[2025-07-18 21:00] VITALS: BP 150/62
== END 2025-07-18 21:48 | disposition home or self-care (01) ==
LOC: EMR 17:24
PROVIDERS: EMERGENCY PHYSICIAN Emergency Medicine
DX: S09.90XA Unspecified injury of head, initial encounter (principal); S60.222A Contusion of left hand, initial encounter; M54.2 Cervicalgia; W07.XXXA Fall from chair, initial encounter; W22.09XA Striking against other stationary object, initial encounter; E11.9 Type 2 diabetes mellitus without complications; E78.5 Hyperlipidemia, unspecified; I44.1 Atrioventricular block, second degree; I45.10 Unspecified right bundle-branch block; I10 Essential (primary) hypertension; Z86.711 Personal history of pulmonary embolism; Z79.01 Long term (current) use of anticoagulants
CPT/HCPCS: 99285; 70450; 72125; 73130; 80053; 83735; 83880; 85025; 85610; 85730; 93005